=== PATIENT | female | born 1985 | race Caucasian/White ===

== ENCOUNTER 2016-06-22 09:53 | Emergency (ER) | payer MEDICAID ==
[2016-06-22] MEDS ORDERED: BENZONATATE 100 MG CAPSULE PO STA (10:41)
[2016-06-22] MEDS ORDERED: guaiFENesin/DEXTROMETHORPHAN 10 ML UDC PO STA (10:44)
[2016-06-22] MEDS ORDERED: BENZONATATE 100 MG CAPSULE PO ONE (10:51)
[2016-06-22] MEDS ORDERED: guaiFENesin/DEXTROMETHORPHAN 10 ML UDC ONE (10:51)
== END 2016-06-22 12:33 | disposition home or self-care (01) ==
DX: J40 Bronchitis, not specified as acute or chronic (principal); I10 Essential (primary) hypertension; F17.200 Nicotine dependence, unspecified, uncomplicated
CPT/HCPCS: 71020; 99282; 99283; A9270

== ENCOUNTER 2016-07-16 19:52 | Emergency (ER) | payer MEDICAID ==
[2016-07-16] MEDS ORDERED: diphenhydrAMINE 25 MG CAPSULE PO STA (21:19)
[2016-07-16] MEDS ORDERED: ONDANSETRON ODT 4 MG TABLET TL STA (21:19)
[2016-07-16] MEDS ORDERED: KETOROLAC 60 MG/2 ML VIAL IM STA (21:19)
[2016-07-16] MEDS ORDERED: diphenhydrAMINE 25 MG CAPSULE PO ONE (21:41)
[2016-07-16] MEDS ORDERED: KETOROLAC 60 MG/2 ML VIAL ONE (21:42)
[2016-07-16] MEDS ORDERED: ONDANSETRON ODT 4 MG TABLET ONE (21:42)
[2016-07-17] MEDS ORDERED: HYDROcod/ACETAM 5/325 MG TABLET ONE (00:20)
[2016-07-17] MEDS ORDERED: HYDROcod/ACETAM 5/325 MG TABLET PO STA (00:21)
== END 2016-07-17 00:23 | disposition home or self-care (01) ==
DX: G43.909 Migraine, unspecified, not intractable, without status migrainosus (principal); R07.9 Chest pain, unspecified; I10 Essential (primary) hypertension; F41.9 Anxiety disorder, unspecified; F31.9 Bipolar disorder, unspecified; F20.9 Schizophrenia, unspecified; Z88.0 Allergy status to penicillin; Z88.2 Allergy status to sulfonamides; F17.200 Nicotine dependence, unspecified, uncomplicated
CPT/HCPCS: 36415; 80053; 83690; 85025; 93005; 96372; 99283; 99284; A9270; Q0162

== ENCOUNTER 2016-07-25 20:10 | Outpatient (CLI) | payer MEDICAID | END 2016-07-25 20:11 | disposition critical access hospital (66) | DX: R53.1 Weakness (principal) | CPT/HCPCS: A0425; A0427 ==

== ENCOUNTER 2016-07-25 20:29 | Emergency (ER) | payer MEDICAID ==
[2016-07-25] MEDS ORDERED: SODIUM CHLORIDE 0.9% 1,000 ML IV ONE (20:43)
== END 2016-07-25 23:03 | disposition home or self-care (01) ==
DX: E86.0 Dehydration (principal); E11.9 Type 2 diabetes mellitus without complications; I10 Essential (primary) hypertension; F20.9 Schizophrenia, unspecified; F31.9 Bipolar disorder, unspecified; M54.5 Low back pain; G89.29 Other chronic pain; F17.200 Nicotine dependence, unspecified, uncomplicated

== ENCOUNTER 2016-08-23 23:03 | Outpatient (CLI) | payer MEDICAID | END 2016-08-23 23:04 | disposition critical access hospital (66) | DX: T42.6X1A Poisoning by other antiepileptic and sedative-hypnotic drugs, accidental (unintentional), initial encounter (principal) | CPT/HCPCS: A0425; A0429 ==

== ENCOUNTER 2016-08-23 23:20 | Emergency (ER) | payer MEDICAID ==
[2016-08-23] MEDS ORDERED: SODIUM CHLORIDE 0.9% 1,000 ML IV ONE (23:34)
[2016-08-23 23:54] LABS: BASOPHILS # (AUTO) 0.1 10^3/uL (0.0-0.1); BASOPHILS % (AUTO) 0.7 %; EOSINOPHILS # (AUTO) 0.1 10^3/uL (0.0-0.7); EOSINOPHILS % (AUTO) 1.4 %; HCT - HEMATOCRIT 36.2 % (37.0-47.0); HGB - HEMOGLOBIN 12.6 g/dL (12.0-16.0); LYMPHOCYTES # (AUTO) 2.9 10^3/uL (1.5-3.5); LYMPHOCYTES % (AUTO) 39.9 %; MEAN CORPUSCULAR HEMOGLOBIN 30.7 pg (27.0-31.0); MEAN CORPUSCULAR HGB CONC 34.9 g/dL (32.0-36.0); MEAN CORPUSCULAR VOLUME 87.8 fL (81.0-99.0); MEAN PLATELET VOLUME 9.3 fL (7.9-10.8); MONOCYTES # (AUTO) 0.4 10^3/uL (0.0-1.0); MONOCYTES % (AUTO) 4.8 %; NEUTROPHILS # (AUTO) 3.9 10^3/uL (1.5-6.6); NEUTROPHILS % (AUTO) 53.2 %; RED BLOOD COUNT 4.12 10^6/uL (4.20-5.40); UNCORRECTED WHITE BLOOD COUNT 7.4 x10^3/uL; WHITE BLOOD COUNT 7.4 x10^3/uL (4.8-10.8)
[2016-08-24 00:12] LABS: ALBUMIN/GLOBULIN RATIO 1.6 (1.0-2.2); BILIRUBIN,TOTAL 0.4 mg/dL (0.2-1.0); BUN - BLOOD UREA NITROGEN 13 mg/dL (6-20); CARBON DIOXIDE - CO2 25 mmol/L (21-32); CHLORIDE 103 mmol/L (101-111); CREATININE 0.8 mg/dL (0.4-1.0); GFR - MDRD 83 (>89); GLUCOSE 106 mg/dL (70-100); LIPASE 26 U/L (22-51); POTASSIUM 3.3 mmol/L (3.5-5.0); SALICYLATE < 6.0 mg/dL; SODIUM 136 mmol/L (135-145); TOTAL PROTEIN 6.9 g/dL (6.7-8.2)
[2016-08-24 00:13] LABS: ACETAMINOPHEN < 10 ug/mL (10-30)
--- NOTE | 2016-08-24 03:43 | ED Physician Documentation ---
PD HPI OVERDOSE - Stated complaint Stated Complaint: OD - Chief complaint Chief Complaint: MHE - History obtained from History obtained from: Patient, Friend, EMS - History of Present Illness Timing - onset: How many hours ago (2) Subtance(s) ingested: Multiple, Other (ambien) Contributing factors: Accidental. No: Depresssed, Suicidal Similar symptoms before: Has not had sx before Recently seen: Not recently seen - Additional information Additional information: Patient is a 31 year old female with multiple co-morbidities who is presenting to the emergency department for an accidental overdose. Patient states that she took 6 ambien tonight with her other medications (gabapentin, psych meds). Patient states that she just got confused with her medication. Patient denies any suicidal or homicidal ideation. 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 HEENT: Tonsil/Adenoidectomy - Present Medications Home Medications: Ambulatory Orders Medication Instructions Recorded Confirmed Ziprasidone HCl [Geodon] 40 mg PO BID 04/17/15 01/12/16 Bupropion HCl [Wellbutrin Sr] 200 mg PO DAILY 07/16/15 01/12/16 Polyethylene Glycol 3350 [Miralax] 17 gm PO DAILY PRN #1 bottle 12/17/15 Mag Carb/Al Hydrox/Alginic AC 355 ml ORAL .FREQ 02/27/16 [Gaviscon Extra Strength Liquid] Omeprazole 02/27/16 - Allergies Allergies/Adverse Reactions: Allergies Allergy/AdvReac Type Severity Reaction Status Date / Time Penicillins AdvReac Unknown Rash Verified 07/16/16 20:05 Sulfa (Sulfonamide AdvReac Unknown Rash Verified 07/16/16 20:05 Antibiotics) steroids Allergy Hallucinati Uncoded 07/16/16 20:05 ons - Social History Does the pt smoke?: Yes Smoking Status: Current every day smoker Does the pt drink ETOH?: No Does the pt have substance abuse?: Yes - Immunizations Immunizations are current?: Yes - POLST Patient has POLST: No PD ED PE NORMAL - Vitals Vital signs reviewed: Yes - General General: Well developed/nourished - HEENT HEENT: Atraumatic, PERRL, Moist mucous membranes - Neck Neck: Supple, no meningeal sign PD ED PE EXPANDED - General General: Other (decreased responsiveness but arousable) - Cardiac Cardiac: Tachy - Abdomen Abdomen: Other (obese) - Neuro Neuro: Other (sedated but arousable) - Psych Psych: No: Depressed, Suicidal, Tearful, Withdrawn, Combative, Auditory hallucinations, Visual hallucinations Results - Vitals Vitals: Vital Signs - 24 hr 08/23/16 08/24/16 08/24/16 23:22 00:01 03:09 Temperature 36.3 C L Heart Rate 130 H 102 H 83 Respiratory 14 16 17 Rate Blood Pressure 106/72 118/78 106/91 H O2 Saturation 95 95 08/24/16 03:41 Temperature Heart Rate 83 Respiratory 19 Rate Blood Pressure 109/69 O2 Saturation 94 Oxygen O2 Source Room air - EKG (time done) 2332 Rate: Rate (enter#) (120) Rhythm: Sinus tachycardia [place]: Normal Intervals: Normal VT, QRS normal. No: Prolonged QT QRS: Normal Compare to prior EKG: Changed from prior EKG - Labs Labs: Laboratory Tests 08/23/16 08/23/16 08/23/16 23:48 23:48 23:48 WBC 7.4 RBC 4.12 L Hgb 12.6 Hct 36.2 L MCV 87.8 MCH 30.7 MCHC 34.9 RDW 13.0 Plt Count 191 MPV 9.3 Neut # 3.9 Lymph # 2.9 [place] # 0.4 Eos # 0.1 Baso # 0.1 Absolute Nucleated RBC 0.00 Nucleated RBCs 0.0 Sodium 136 Potassium 3.3 L Chloride 103 Carbon Dioxide 25 Anion Gap 8.0 BUN 13 Creatinine 0.8 Estimated GFR (MDRD) 83 L Glucose 106 H Calcium 9.0 Total Bilirubin 0.4 AST 23 ALT 24 Alkaline Phosphatase 57 Total Protein 6.9 Albumin 4.2 Globulin 2.7 Albumin/Globulin Ratio 1.6 Lipase 26 TSH 1.81 Salicylates < 6.0 Acetaminophen < 10 L Ethyl Alcohol < 5.0 PD MEDICAL DECISION MAKING - ED course Complexity details: reviewed old records, reviewed results, re-evaluated patient , considered differential, d/w patient, d/w family ED course: Patient was seen and examiend at bedside. Patient continued to deny suicidal ideation. IV access was gained and labs were drawn. Patient was treated with a fluid bolus. ekg showed sinus tachycardia. Patient was observed overnight for over 5 hours. In the morning patient was arousable without difficulty. Patient was awake, and alert. she could attend to conversation and ambulate without difficulty. Patient continued to deny any suicidal or homicidal ideations. Patient required no further work up and was stable for discharge with outpatient follow up. Departure - Departure Disposition: 01 Home, Self Care Clinical Impression: Drug overdose Condition: Good Instructions: ED Overdose Accidental Follow-Up: primary,care provider [Other] - Within 3 Days Comments: Your symptoms today were caused by the combination of numerous medications. overdosing/combining these medications can have serious side effects including . You need to be very careful in taking these mediations. You should return to the emergency department if you are having any thoughts of hurting yourself or hurting anyone else. You may return for any new, worsening or uncontrollable symptoms.
[2016-08-24 06:25] VITALS: BP 110/70
== END 2016-08-24 06:31 | disposition home or self-care (01) ==
LOC: EDUNIT# → ED 23:20
DX: T42.6X1A Poisoning by other antiepileptic and sedative-hypnotic drugs, accidental (unintentional), initial encounter (principal); I10 Essential (primary) hypertension; F17.200 Nicotine dependence, unspecified, uncomplicated
CPT/HCPCS: 36415; 80053; 80307; 80320; 80329; 83690; 84443; 85025; 93005; 93010; 96360; 96361; 99284

== ENCOUNTER 2016-08-25 18:06 | Outpatient (CLI) | payer MEDICAID | END 2016-08-25 18:07 | disposition critical access hospital (66) | DX: T42.4X2A Poisoning by benzodiazepines, intentional self-harm, initial encounter (principal) | CPT/HCPCS: A0425; A0427 ==

== ENCOUNTER 2016-08-25 18:27 | Emergency (ER) | payer MEDICAID ==
[2016-08-25] MEDS ORDERED: SODIUM CHLORIDE 0.9% 1,000 ML IV ONE (18:31)
--- NOTE | 2016-08-25 18:35 | ED Physician Documentation ---
PD HPI OVERDOSE - Stated complaint Stated Complaint: OD - History obtained from History obtained from: Patient, EMS - History of Present Illness Timing - onset: Today (At 4 PM, in a suicide attempt took 7x0.5mg clonazepam, 4x 10mg ambien, apprx 10 x 50mg hydroxyzine, about 5 x 100mg trazodone. Was seen here a few nights ago after an OD, told us it was accidental, now admits it was also intentional.) Review of Systems Ten Systems: 10 systems reviewed and negative Constitutional: reports: Reviewed and negative Ears: reports: Reviewed and negative Nose: reports: Reviewed and negative Throat: reports: Reviewed and negative PD PAST MEDICAL HISTORY - Past Medical History Cardiovascular: Hypertension Respiratory: None Neuro: Headache/migraine Endocrine/Autoimmune: None GI: Chronic constipation : None HEENT: None Psych: Depression, Anxiety, Bipolar disorder, Schizophrenia, Other Musculoskeletal: Chronic back pain Derm: None - Past Surgical History 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 HEENT: Tonsil/Adenoidectomy - Present Medications Home Medications: Ambulatory Orders Medication Instructions Recorded Confirmed Ziprasidone HCl [Geodon] 40 mg PO BID 04/17/15 08/25/16 Bupropion HCl [Wellbutrin Sr] 200 mg PO DAILY 07/16/15 01/12/16 Polyethylene Glycol 3350 [Miralax] 17 gm PO DAILY PRN #1 bottle 12/17/15 Mag Carb/Al Hydrox/Alginic AC 355 ml ORAL .FREQ 02/27/16 [Gaviscon Extra Strength Liquid] Omeprazole 02/27/16 FLUoxetine [PROzac] 20 08/25/16 Gabapentin 600 08/25/16 Guanfacine HCl [Guanfacine HCl ER] 08/25/16 Sumatriptan Succinate 08/25/16 hydrOXYzine PAMOATE [Vistaril] 08/25/16 - Allergies Allergies/Adverse Reactions: Allergies Allergy/AdvReac Type Severity Reaction Status Date / Time Penicillins AdvReac Unknown Rash Verified 07/16/16 20:05 Sulfa (Sulfonamide AdvReac Unknown Rash Verified 07/16/16 20:05 Antibiotics) steroids Allergy Hallucinati Uncoded 07/16/16 20:05 ons - Social History Does the pt smoke?: Yes Smoking Status: Current every day smoker Does the pt drink ETOH?: No Does the pt have substance abuse?: Yes - Family History Family history: reports: Non contributory - Immunizations Immunizations are current?: Yes - POLST Patient has POLST: No PD ED PE NORMAL - Vitals Vital signs reviewed: Yes (tachycardic) - General General: Alert and oriented X 3, Other (sleepy but easily arousable/oriented.) - HEENT HEENT: PERRL, EOMI - Neck Neck: Supple, no meningeal sign, No bony TTP - Cardiac Cardiac: RRR, No murmur - Respiratory Respiratory: No respiratory distress, Clear bilaterally - Abdomen Abdomen: Normal bowel sounds, Soft, Non tender - Back Back: No CVA TTP, No spinal TTP - Derm Derm: Normal color, Warm and dry - Extremities Extremities: Normal ROM s pain, No edema - Neuro Neuro: Alert and oriented X 3, Normal speech - Psych Psych: Normal mood, Normal affect Results - Vitals Vitals: Vital Signs - 24 hr 08/25/16 08/25/16 08/25/16 18:30 19:25 20:37 Temperature 37 C Heart Rate 137 H 78 78 Respiratory 14 12 17 Rate Blood Pressure 136/71 H 118/86 H 102/51 L O2 Saturation 97 98 98 08/25/16 08/25/16 08/25/16 20:53 21:34 22:34 Temperature Heart Rate 81 81 77 Respiratory 17 15 17 Rate Blood Pressure 108/60 94/67 94/60 O2 Saturation 97 97 96 08/25/16 08/25/16 08/26/16 22:50 23:36 00:27 Temperature Heart Rate 75 87 86 Respiratory 18 15 16 Rate Blood Pressure 102/70 95/63 98/69 O2 Saturation 98 95 95 08/26/16 08/26/16 08/26/16 01:33 02:39 02:44 Temperature 36.2 C L Heart Rate 86 89 88 Respiratory 15 15 17 Rate Blood Pressure 103/67 115/66 99/65 O2 Saturation 97 96 95 08/26/16 08/26/16 08/26/16 03:41 04:00 05:00 Temperature Heart Rate 77 81 85 Respiratory 18 16 18 Rate Blood Pressure 104/70 108/72 116/75 O2 Saturation 96 98 96 08/26/16 08/26/16 08/26/16 06:00 06:54 09:40 Temperature Heart Rate 84 84 70 Respiratory 14 15 16 Rate Blood Pressure 128/78 109/75 115/66 O2 Saturation 100 98 98 Oxygen O2 Source Room air - EKG (time done) 1833 Rate: Rate (enter#) (122) Rhythm: Sinus tachycardia [place]: Normal Intervals: Normal [place]. No: Prolonged QT, Wide QRS QRS: Normal Ischemia: Non specific changes Computer interpretation: Agree with computer - Labs Labs: Laboratory Tests 08/25/16 08/25/16 08/25/16 18:50 18:50 19:20 WBC 6.4 RBC 4.46 Hgb 13.4 Hct 39.3 MCV 88.1 MCH 30.1 MCHC 34.1 RDW 13.0 Plt Count 202 MPV 9.4 Neut # 3.6 Lymph # 2.3 [place] # 0.3 Eos # 0.1 Baso # 0.0 Absolute Nucleated RBC 0.00 Nucleated RBCs 0.0 Sodium 139 Potassium 3.5 Chloride 106 Carbon Dioxide 22 Anion Gap 11.0 BUN 14 Creatinine 0.7 Estimated GFR (MDRD) 96 Glucose 119 H Calcium 9.1 Magnesium 1.8 Total Bilirubin 0.3 AST 25 ALT 23 Alkaline Phosphatase 51 Total Creatine Kinase 49 Total Protein 7.1 Albumin 4.2 Globulin 2.9 Albumin/Globulin Ratio 1.4 Lipase 22 Urine Color Urine Clarity Urine pH Ur Specific [place] Urine Protein Urine Glucose (UA) Urine Ketones Urine Occult Blood Urine Nitrite Urine Bilirubin Urine Urobilinogen Ur Leukocyte Esterase Urine RBC Urine WBC Ur Squamous Epith Cells Urine Bacteria Ur Microscopic Review Urine Culture Comments Urine HCG, Qual Salicylates < 6.0 Urine Opiates Screen NEGATIVE Ur Oxycodone Screen NEGATIVE Urine Methadone Screen NEGATIVE Ur Propoxyphene Screen NEGATIVE Acetaminophen < 10 L Ur Barbiturates Screen NEGATIVE Ur Tricyclics Screen NEGATIVE Ur Phencyclidine Scrn NEGATIVE Ur Amphetamine Screen NEGATIVE U Methamphetamines Scrn NEGATIVE U Benzodiazepines Scrn POSITIVE H Urine Cocaine Screen NEGATIVE U Cannabinoids Screen POSITIVE H Ethyl Alcohol < 5.0 08/25/16 19:20 WBC RBC Hgb Hct MCV MCH MCHC RDW Plt Count MPV Neut # Lymph # [place] # Eos # Baso # Absolute Nucleated RBC Nucleated RBCs Sodium Potassium Chloride Carbon Dioxide Anion Gap BUN Creatinine Estimated GFR (MDRD) Glucose Calcium Magnesium Total Bilirubin AST ALT Alkaline Phosphatase Total Creatine Kinase Total Protein Albumin Globulin Albumin/Globulin Ratio Lipase Urine Color YELLOW Urine Clarity HAZY Urine pH 6.0 Ur Specific [place] 1.010 Urine Protein NEGATIVE Urine Glucose (UA) NEGATIVE Urine Ketones NEGATIVE Urine Occult Blood LARGE H Urine Nitrite NEGATIVE Urine Bilirubin NEGATIVE Urine Urobilinogen 0.2 (NORMAL) Ur Leukocyte Esterase NEGATIVE Urine RBC TNTC H Urine WBC 0-3 Ur Squamous Epith Cells MOD Squamous H Urine Bacteria None Seen Ur Microscopic Review INDICATED Urine Culture Comments NOT INDICATED Urine HCG, Qual NEGATIVE Salicylates Urine Opiates Screen Ur Oxycodone Screen Urine Methadone Screen Ur Propoxyphene Screen Acetaminophen Ur Barbiturates Screen Ur Tricyclics Screen Ur Phencyclidine Scrn Ur Amphetamine Screen U Methamphetamines Scrn U Benzodiazepines Scrn Urine Cocaine Screen U Cannabinoids Screen Ethyl Alcohol PD MEDICAL DECISION MAKING - ED course ED course: She presents after an overdose, observed for 6 hours without clinical decompensation. Third for psychiatric treatment and [facility], disposition pending on shift change. Departure - Departure Disposition: 65 Psych Hosp/Unit DC/Xfer Clinical Impression: Depression Qualifiers: Depression Type: unspecified Qualified Code(s): F32.9 - Major depressive disorder, single episode, unspecified Medication overdose Qualifiers: Encounter type: initial encounter Injury intent: intentional self-harm Qualified Code(s): T50.902A - Poisoning by unspecified drugs, medicaments and biological substances, intentional self-harm, initial encounter Condition: Good Discharge Date/Time: 08/26/16 09:45
[2016-08-25 18:58] LABS: BASOPHILS % (AUTO) 0.5 %; EOSINOPHILS # (AUTO) 0.1 10^3/uL (0.0-0.7); EOSINOPHILS % (AUTO) 1.2 %; HCT - HEMATOCRIT 39.3 % (37.0-47.0); HGB - HEMOGLOBIN 13.4 g/dL (12.0-16.0); LYMPHOCYTES # (AUTO) 2.3 10^3/uL (1.5-3.5); LYMPHOCYTES % (AUTO) 36.7 %; MEAN CORPUSCULAR HEMOGLOBIN 30.1 pg (27.0-31.0); MEAN CORPUSCULAR HGB CONC 34.1 g/dL (32.0-36.0); MEAN CORPUSCULAR VOLUME 88.1 fL (81.0-99.0); MEAN PLATELET VOLUME 9.4 fL (7.9-10.8); MONOCYTES # (AUTO) 0.3 10^3/uL (0.0-1.0); MONOCYTES % (AUTO) 4.3 %; NEUTROPHILS # (AUTO) 3.6 10^3/uL (1.5-6.6); NEUTROPHILS % (AUTO) 57.3 %; RED BLOOD COUNT 4.46 10^6/uL (4.20-5.40); UNCORRECTED WHITE BLOOD COUNT 6.4 x10^3/uL; WHITE BLOOD COUNT 6.4 x10^3/uL (4.8-10.8)
[2016-08-25 19:13] LABS: ALBUMIN/GLOBULIN RATIO 1.4 (1.0-2.2); BILIRUBIN,TOTAL 0.3 mg/dL (0.2-1.0); BUN - BLOOD UREA NITROGEN 14 mg/dL (6-20); CALCIUM 9.1 mg/dL (8.5-10.3); CARBON DIOXIDE - CO2 22 mmol/L (21-32); CHLORIDE 106 mmol/L (101-111); CREATININE 0.7 mg/dL (0.4-1.0); GFR - MDRD 96 (>89); GLUCOSE 119 mg/dL (70-100); LIPASE 22 U/L (22-51); MAGNESIUM 1.8 mg/dL (1.7-2.8); POTASSIUM 3.5 mmol/L (3.5-5.0); SALICYLATE < 6.0 mg/dL; SODIUM 139 mmol/L (135-145); TOTAL PROTEIN 7.1 g/dL (6.7-8.2)
[2016-08-25 19:14] LABS: ACETAMINOPHEN < 10 ug/mL (10-30)
[2016-08-25 19:36] LABS: BILIRUBIN,URINE NEGATIVE (NEGATIVE)
[2016-08-25 19:37] LABS: UA w/ MICROSCOPIC CHARGE YES
[2016-08-25 20:01] LABS: HCG UR QUAL NEGATIVE
[2016-08-25 20:11] LABS: UR CULTURE IF IND NOT INDICATED; WBC,URINE 0-3 /HPF (0-5)
[2016-08-25] MEDS ORDERED: KETOROLAC 60 MG/2 ML VIAL IVP STA (20:40)
[2016-08-25] MEDS ORDERED: HALOPERIDOL 5 MG/ML VIAL IVP ONE (20:40)
[2016-08-25] MEDS ORDERED: KETOROLAC 30 MG/ML VIAL ONE (20:44)
[2016-08-25] MEDS ORDERED: HALOPERIDOL 5 MG/ML VIAL ONE (20:44)
[2016-08-26 09:50] VITALS: BP 115/66
== END 2016-08-26 09:45 ==
LOC: EDUNIT# → ED 18:27
DX: F32.9 Major depressive disorder, single episode, unspecified (principal); T42.4X2A Poisoning by benzodiazepines, intentional self-harm, initial encounter; T42.6X2A Poisoning by other antiepileptic and sedative-hypnotic drugs, intentional self-harm, initial encounter; T43.592A Poisoning by other antipsychotics and neuroleptics, intentional self-harm, initial encounter; T43.212A Poisoning by selective serotonin and norepinephrine reuptake inhibitors, intentional self-harm, initial encounter; R00.0 Tachycardia, unspecified; F20.9 Schizophrenia, unspecified; I10 Essential (primary) hypertension; F17.200 Nicotine dependence, unspecified, uncomplicated
CPT/HCPCS: 36415; 80053; 80306; 80307; 80320; 80329; 81001; 81003; 81025; 82550; 83690; 83735; 85025; 87086; 93005; 93010; 96361; 96374; 96375; 99285

== ENCOUNTER 2016-09-16 18:07 | Outpatient (CLI) | payer MEDICAID | END 2016-09-16 18:08 | disposition critical access hospital (66) | DX: M54.2 Cervicalgia (principal); R68.84 Jaw pain | CPT/HCPCS: A0425; A0429 ==

== ENCOUNTER 2016-09-16 18:28 | Emergency (ER) | payer MEDICAID ==
[2016-09-16 18:40] VITALS: BP 137/93
[2016-09-16] MEDS ORDERED: CEPHALEXIN 250 MG CAPSULE PO STA (19:05)
--- NOTE | 2016-09-16 19:08 | ED Physician Documentation ---
PD HPI HEENT - Stated complaint Stated Complaint: JAWPAIN - Chief complaint Chief Complaint: Heent - History obtained from History obtained from: Patient - History of Present Illness Timing - onset: How many days ago (2) Timing - details: Still present Location: Tooth Recently seen: Other (dentist) - Additional information Additional information: The patient is a 31-year-old female who presents with dental pain of 2 days' duration, involving right lower molar. She reports associated mild headache. She denies fever or difficulty swallowing. She was seen by a dentist earlier today and had extraction of the involved tooth. She presents now because of continued pain. Review of Systems Constitutional: denies: Fever Eyes: denies: Irritation Ears: denies: Ear pain Nose: denies: Congestion Throat: reports: Dental pain / toothache. 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/Adenoidectomy - Present Medications Home Medications: Ambulatory Orders Medication Instructions Recorded Confirmed Polyethylene Glycol 3350 [Miralax] 17 gm PO DAILY PRN #1 bottle 12/17/15 Gabapentin 600 mg TID 08/25/16 Sumatriptan Succinate PRN 08/25/16 hydrOXYzine PAMOATE [Vistaril] 50 mg PRN 08/25/16 Cephalexin 500 mg PO TID #20 tablet 09/16/16 HYDROcod/ACETAM 5/325 [[place] 5/325] 1 - 2 ea PO Q6H PRN #15 tablet 09/16/16 - Allergies Allergies/Adverse Reactions: Allergies Allergy/AdvReac Type Severity Reaction Status Date / Time Penicillins AdvReac Unknown Rash Verified 09/16/16 18:33 Sulfa (Sulfonamide AdvReac Unknown Rash Verified 09/16/16 18:33 Antibiotics) steroids Allergy Hallucinati Uncoded 09/16/16 18:33 ons - Social History Does the pt smoke?: Yes Smoking Status: Current every day smoker Does the pt drink ETOH?: No Does the pt have substance abuse?: Yes - Immunizations Immunizations are current?: Yes - POLST Patient has POLST: No PD ED PE NORMAL - Vitals Vital signs reviewed: Yes (normal) - General General: Alert and oriented X 3, Well developed/nourished - HEENT HEENT: Atraumatic, EOMI, Ears normal, Pharynx benign, Other (Most of her molars have been extracted. There is a new extraction site of the right lower third molar. There is associated tenderness to palpation of the first premolar. There is no appreciable facial swelling or temporal mandibular tenderness.) - Neck Neck: Supple, no meningeal sign, No adenopathy - Cardiac Cardiac: RRR, No murmur - Respiratory Respiratory: No respiratory distress, Clear bilaterally - Derm Derm: No rash - Neuro Neuro: Alert and oriented X 3, No motor deficit, Normal speech Results - Vitals Vitals: Oxygen O2 Source Room air PD MEDICAL DECISION MAKING - ED course Complexity details: reviewed old records, considered differential, d/w patient ED course: The patient's presentation is consistent with post extraction dental pain. It is likely she had a small dental abscess at the affected tooth. There is no evidence of sublingual abscess. Treatment in the emergency department included administration of cephalexin 500 mg orally. She is being discharged with prescription for cephalexin and for Vicodin, 15 tablets. I discussed with her the expected course of illness, antibiotic treatment and outpatient follow-up, as well as potentially worrisome signs or symptoms that should prompt reevaluation in the emergency department. Departure - Departure Disposition: 01 Home, Self Care Clinical Impression: Pain, dental Condition: Stable Instructions: ED Abscess Dental Follow-Up: Nigel Cruz MD [Physician No Access] - Prescriptions: Cephalexin 500 mg PO TID #20 tablet HYDROcod/ACETAM 5/325 [[place] 5/325] 1 - 2 ea PO Q6H PRN #15 tablet PRN Reason: Pain Comments: Take cephalexin as prescribed. You can use Vicodin as prescribed if needed for pain. Follow up with your dentist as planned. Return to the emergency department if you develop increasing pain or facial swelling, or otherwise worsening symptoms. Discharge Date/Time: 09/16/16 19:26
[2016-09-16] MEDS ORDERED: CEPHALEXIN 250 MG CAPSULE PO ONE (19:11)
== END 2016-09-16 19:26 | disposition home or self-care (01) ==
LOC: EDUNIT# → ED 18:28
DX: K08.89 Other specified disorders of teeth and supporting structures (principal); I10 Essential (primary) hypertension; F17.200 Nicotine dependence, unspecified, uncomplicated
CPT/HCPCS: 99283; A9270

== ENCOUNTER 2016-09-19 17:58 | Outpatient (CLI) | payer MEDICAID | END 2016-09-19 17:59 | disposition critical access hospital (66) | LOC: EMS 17:58 | PROVIDERS: ATTEND Surgery | DX: R53.1 Weakness (principal) | CPT/HCPCS: A0425; A0429 ==

== ENCOUNTER 2016-09-19 18:19 | Emergency (ER) | payer MEDICAID ==
[2016-09-19 20:31] LABS: BASOPHILS # (AUTO) 0.1 10^3/uL (0.0-0.1); BASOPHILS % (AUTO) 0.9 %; EOSINOPHILS % (AUTO) 0.5 %; HCT - HEMATOCRIT 41.7 % (37.0-47.0); LYMPHOCYTES # (AUTO) 3.4 10^3/uL (1.5-3.5); LYMPHOCYTES % (AUTO) 37.8 %; MEAN CORPUSCULAR HEMOGLOBIN 29.7 pg (27.0-31.0); MEAN CORPUSCULAR HGB CONC 33.6 g/dL (32.0-36.0); MEAN CORPUSCULAR VOLUME 88.2 fL (81.0-99.0); MONOCYTES # (AUTO) 0.5 10^3/uL (0.0-1.0); MONOCYTES % (AUTO) 5.7 %; NEUTROPHILS # (AUTO) 4.9 10^3/uL (1.5-6.6); NEUTROPHILS % (AUTO) 55.1 %; RED BLOOD COUNT 4.72 10^6/uL (4.20-5.40); RED CELL DISTRIBUTION WIDTH 12.5 % (12.0-15.0); UNCORRECTED WHITE BLOOD COUNT 8.9 x10^3/uL; WHITE BLOOD COUNT 8.9 x10^3/uL (4.8-10.8)
[2016-09-19 20:35] LABS: BILIRUBIN,URINE NEGATIVE (NEGATIVE); PH,URINE 8.5 PH (5.0-7.5)
[2016-09-19 20:40] LABS: HCG UR QUAL NEGATIVE; UA w/ MICROSCOPIC CHARGE YES
[2016-09-19 20:43] LABS: ALBUMIN/GLOBULIN RATIO 1.7 (1.0-2.2); BILIRUBIN,TOTAL < 0.2 mg/dL (0.2-1.0); BUN - BLOOD UREA NITROGEN 13 mg/dL (6-20); CALCIUM 8.9 mg/dL (8.5-10.3); CARBON DIOXIDE - CO2 24 mmol/L (21-32); CHLORIDE 105 mmol/L (101-111); CREATININE 0.7 mg/dL (0.4-1.0); GFR - MDRD 96 (>89); GLUCOSE 99 mg/dL (70-100); LIPASE 25 U/L (22-51); SODIUM 139 mmol/L (135-145)
--- NOTE | 2016-09-19 20:57 | ED Physician Documentation ---
History of Present Illness - Stated complaint Stated Complaint: WEAKNESS - Chief complaint Chief Complaint: General - History of Present Illness Timing: How many weeks ago (1) - Additonal information Additional information: Patient is a 31 year old female with a history of depression and chronic pain who is presenting to the emergency department for generalized weakness and right shoulder pain. Patient states that it has been going on for over a week. She thinks that it might have been after she was on antibiotics for an infected tooth. Patient states that she is just continually sleeping. Review of Systems Constitutional: denies: Fever, Chills Eyes: denies: Loss of vision, Photophobia Ears: denies: Ear pain, Drainage/discharge, Tinnitus/ringing Nose: denies: Rhinorrhea / runny nose, Congestion Throat: denies: Dental pain / toothache, Sore throat Cardiac: denies: Chest pain / pressure, Palpitations Respiratory: denies: Dyspnea, Cough, Wheezing GI: denies: Abdominal Pain, Nausea, Vomiting : denies: Dysuria, Frequency, Hesitancy Skin: denies: Rash, Lesions, Abrasion (s) Musculoskeletal: reports: Neck pain, Extremity pain Neurologic: reports: Generalized weakness. 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 HEENT: Tonsil/Adenoidectomy - Present Medications Home Medications: Ambulatory Orders Medication Instructions Recorded Confirmed Polyethylene Glycol 3350 [Miralax] 17 gm PO DAILY PRN #1 bottle 12/17/15 Gabapentin 600 mg TID 08/25/16 09/19/16 Sumatriptan Succinate PRN 08/25/16 hydrOXYzine PAMOATE [Vistaril] 50 mg TID 08/25/16 09/19/16 Cephalexin 500 mg PO TID #20 tablet 09/16/16 09/19/16 HYDROcod/ACETAM 5/325 [[place] 5/325] 1 - 2 ea PO Q6H PRN #15 tablet 09/16/16 - Allergies Allergies/Adverse Reactions: Allergies Allergy/AdvReac Type Severity Reaction Status Date / Time Penicillins AdvReac Unknown Rash Verified 09/16/16 18:33 Sulfa (Sulfonamide AdvReac Unknown Rash Verified 09/16/16 18:33 Antibiotics) steroids Allergy Hallucinati Uncoded 09/16/16 18:33 ons - Social History Does the pt smoke?: Yes Smoking Status: Current every day smoker Does the pt drink ETOH?: No Does the pt have substance abuse?: Yes Substance Use and Type: Marijuana - Immunizations Immunizations are current?: Yes - POLST Patient has POLST: No PD ED PE NORMAL - Vitals Vital signs reviewed: Yes - General General: Alert and oriented X 3, No acute distress - HEENT HEENT: Atraumatic, PERRL, Moist mucous membranes, Pharynx benign - Neck Neck: Supple, no meningeal sign, No JVD - Cardiac Cardiac: RRR, No murmur - Respiratory Respiratory: No respiratory distress, Clear bilaterally - Abdomen Abdomen: Soft, Non tender, Non distended - Derm Derm: Normal color, Warm and dry, No rash - Extremities Extremities: No deformity - Neuro Neuro: Alert and oriented X 3, tc operator 2-12 intact, No motor deficit, No sensory deficit, Normal speech - Psych Psych: Normal affect PD ED PE EXPANDED - General General: Disheveled, poorly kept - Neck Neck: Supple w/out meningeal sx, Soft tissue TTP (hypertonicity of right paraspinal muscles) Results - Vitals Vitals: Vital Signs - 24 hr 09/19/16 09/19/16 09/19/16 18:22 19:43 21:03 Temperature 36.4 C L 36.1 C L Heart Rate 118 H 79 91 Respiratory 18 18 20 Rate Blood Pressure 137/65 H 118/79 109/69 O2 Saturation 95 97 99 Oxygen O2 Source Room air - Labs Labs: Laboratory Tests 09/19/16 09/19/16 09/19/16 20:15 20:15 20:25 WBC 8.9 RBC 4.72 Hgb 14.0 Hct 41.7 MCV 88.2 MCH 29.7 MCHC 33.6 RDW 12.5 Plt Count 196 MPV 9.0 Neut # 4.9 Lymph # 3.4 [place] # 0.5 Eos # 0.0 Baso # 0.1 Absolute Nucleated RBC 0.00 Nucleated RBCs 0.0 Sodium Potassium Chloride Carbon Dioxide Anion Gap BUN Creatinine Estimated GFR (MDRD) Glucose Calcium Total Bilirubin AST ALT Alkaline Phosphatase Total Protein Albumin Globulin Albumin/Globulin Ratio Lipase Urine Color YELLOW Urine Clarity HAZY Urine pH 8.5 H Ur Specific [place] 1.020 Urine Protein NEGATIVE Urine Glucose (UA) NEGATIVE Urine Ketones TRACE Urine Occult Blood NEGATIVE Urine Nitrite NEGATIVE Urine Bilirubin NEGATIVE Urine Urobilinogen 1 (NORMAL) Ur Leukocyte Esterase NEGATIVE Urine RBC 0-5 Urine WBC 0-3 Ur Squamous Epith Cells MOD Squamous H Urine Bacteria Few Ur Microscopic Review INDICATED Urine Culture Comments NOT INDICATED Urine HCG, Qual NEGATIVE Urine Opiates Screen POSITIVE H Ur Oxycodone Screen NEGATIVE Urine Methadone Screen NEGATIVE Ur Propoxyphene Screen NEGATIVE Ur Barbiturates Screen NEGATIVE Ur Tricyclics Screen NEGATIVE Ur Phencyclidine Scrn NEGATIVE Ur Amphetamine Screen NEGATIVE U Methamphetamines Scrn NEGATIVE U Benzodiazepines Scrn POSITIVE H Urine Cocaine Screen NEGATIVE U Cannabinoids Screen POSITIVE H 09/19/16 20:25 WBC RBC Hgb Hct MCV MCH MCHC RDW Plt Count MPV Neut # Lymph # [place] # Eos # Baso # Absolute Nucleated RBC Nucleated RBCs Sodium 139 Potassium 4.0 Chloride 105 Carbon Dioxide 24 Anion Gap 10.0 BUN 13 Creatinine 0.7 Estimated GFR (MDRD) 96 Glucose 99 Calcium 8.9 Total Bilirubin < 0.2 L AST 15 ALT 16 Alkaline Phosphatase 49 Total Protein 7.0 Albumin 4.4 Globulin 2.6 Albumin/Globulin Ratio 1.7 Lipase 25 Urine Color Urine Clarity Urine pH Ur Specific [place] Urine Protein Urine Glucose (UA) Urine Ketones Urine Occult Blood Urine Nitrite Urine Bilirubin Urine Urobilinogen Ur Leukocyte Esterase Urine RBC Urine WBC Ur Squamous Epith Cells Urine Bacteria Ur Microscopic Review Urine Culture Comments Urine HCG, Qual Urine Opiates Screen Ur Oxycodone Screen Urine Methadone Screen Ur Propoxyphene Screen Ur Barbiturates Screen Ur Tricyclics Screen Ur Phencyclidine Scrn Ur Amphetamine Screen U Methamphetamines Scrn U Benzodiazepines Scrn Urine Cocaine Screen U Cannabinoids Screen PD MEDICAL DECISION MAKING - ED course Complexity details: reviewed old records, reviewed results, re-evaluated patient , considered differential, d/w patient ED course: Patient was seen and examined at bedside. Patient's original tachycardia in triage resolved on its own. patient was afebrile. labs were drawn and urine was collected. Patient's blood work was within normal limits and urine was only significant for polysubstances. Upon discharge patient's vital signs were within normal limits. Patient was stable for discharge with outpatient follow up. Departure - Departure Disposition: 01 Home, Self Care Clinical Impression: Generalized muscle ache Condition: Good Instructions: ANTI-INFLAMMATORY, General Follow-Up: Nigel Cruz MD [Primary Care Provider] - As Needed Comments: Your diagnostics today were within normal limits. there were no major abnormalities on you blood work or urine. Your symptoms impart are likely due to all of the medications that your are taking. You are on over four meds that can cause sedation so you need to be careful how much and how often you are taking them. You should follow up with your pmd if your symptoms persist for more than the next week. You may return to the emergency department at any time for new worsening or uncontrollable symptoms. Discharge Date/Time: 09/19/16 21:07
[2016-09-19 21:04] VITALS: BP 109/69
[2016-09-19 21:05] LABS: UR CULTURE IF IND NOT INDICATED; WBC,URINE 0-3 /HPF (0-5)
== END 2016-09-19 21:07 | disposition home or self-care (01) ==
LOC: EDUNIT# → ED 18:19
DX: M79.1 Myalgia (principal); R00.0 Tachycardia, unspecified; R53.1 Weakness; I10 Essential (primary) hypertension; F17.200 Nicotine dependence, unspecified, uncomplicated
CPT/HCPCS: 36415; 80053; 80306; 81001; 81003; 81025; 83690; 85025; 87086; 99282; 99283

== ENCOUNTER 2016-09-25 08:00 | Outpatient (CLI) | payer MEDICAID ==
[2016-09-26 21:58] LABS: TEST RESULT REPORT (())
== END 2016-09-25 08:01 | disposition home or self-care (01) ==
LOC: LAB.R 08:00
PROVIDERS: ATTEND Nurse Practitioner Obstetrics & Gynecology
DX: N76.0 Acute vaginitis (principal)
CPT/HCPCS: 81599; 87480; 87510; 87660

== ENCOUNTER 2016-09-28 09:56 | Outpatient (CLI) | payer MEDICAID | END 2016-09-28 09:57 | disposition home or self-care (01) | LOC: DI.N 09:56 | PROVIDERS: ATTEND Nurse Practitioner Obstetrics & Gynecology | DX: Z53.9 Procedure and treatment not carried out, unspecified reason (principal) ==

== ENCOUNTER 2016-10-15 14:17 | Emergency (ER) | payer MEDICAID ==
[2016-10-15 14:38] LABS: BASOPHILS # (AUTO) 0.1 10^3/uL (0.0-0.1); BASOPHILS % (AUTO) 0.8 %; EOSINOPHILS % (AUTO) 0.3 %; HCT - HEMATOCRIT 41.8 % (37.0-47.0); HGB - HEMOGLOBIN 14.2 g/dL (12.0-16.0); LYMPHOCYTES % (AUTO) 20.3 %; MEAN CORPUSCULAR HEMOGLOBIN 29.6 pg (27.0-31.0); MEAN CORPUSCULAR HGB CONC 34.1 g/dL (32.0-36.0); MEAN CORPUSCULAR VOLUME 86.9 fL (81.0-99.0); MEAN PLATELET VOLUME 8.8 fL (7.9-10.8); MONOCYTES # (AUTO) 0.4 10^3/uL (0.0-1.0); MONOCYTES % (AUTO) 4.3 %; NEUTROPHILS # (AUTO) 7.3 10^3/uL (1.5-6.6); NEUTROPHILS % (AUTO) 74.3 %; RED BLOOD COUNT 4.81 10^6/uL (4.20-5.40); RED CELL DISTRIBUTION WIDTH 12.6 % (12.0-15.0); UNCORRECTED WHITE BLOOD COUNT 9.8 x10^3/uL; WHITE BLOOD COUNT 9.8 x10^3/uL (4.8-10.8)
[2016-10-15 14:57] LABS: ALBUMIN/GLOBULIN RATIO 1.6 (1.0-2.2); BILIRUBIN,TOTAL 0.7 mg/dL (0.2-1.0); BUN - BLOOD UREA NITROGEN 20 mg/dL (6-20); CALCIUM 9.1 mg/dL (8.5-10.3); CARBON DIOXIDE - CO2 24 mmol/L (21-32); CHLORIDE 104 mmol/L (101-111); CREATININE 0.6 mg/dL (0.4-1.0); GFR - MDRD 115 (>89); GLUCOSE 110 mg/dL (70-100); LIPASE 26 U/L (22-51); POTASSIUM 3.7 mmol/L (3.5-5.0); SALICYLATE < 6.0 mg/dL; SODIUM 139 mmol/L (135-145); TOTAL PROTEIN 7.5 g/dL (6.7-8.2)
[2016-10-15 14:58] LABS: ACETAMINOPHEN < 10 ug/mL (10-30)
[2016-10-15 16:57] LABS: BILIRUBIN,URINE NEGATIVE (NEGATIVE)
[2016-10-15 17:06] LABS: HCG UR QUAL NEGATIVE; UA CHARGE (STRIP ONLY) YES; UR CULTURE IF IND NOT INDICATED
[2016-10-15] MEDS ORDERED: OLANZapine ODT 5 MG TABLET TL ONE ×4 (18:37→20:34)
--- NOTE | 2016-10-15 19:45 | ED Physician Documentation ---
PD HPI MHE - Stated complaint Stated Complaint: MHE - Chief complaint Chief Complaint: MHE - History obtained from History obtained from: Patient - History of Present Illness Primary symptom: Suicidal ideation Timing - onset: Chronic Pain level max: 0 Pain level now: 0 Similar symptoms before: Diagnosis (depression, SI) Recently seen: Clinic ([facility] kate over by her outpt mental health counselor for [facility].) - Additional information Additional information: Patient does not want to give much history to me other than she states that she feels suicidal. She is accompanied by her outpatient mental health counselor who is speaking with social work. 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 HEENT: Tonsil/Adenoidectomy - Present Medications Home Medications: Ambulatory Orders Medication Instructions Recorded Confirmed Polyethylene Glycol 3350 [Miralax] 17 gm PO DAILY PRN #1 bottle 12/17/15 Gabapentin 600 mg TID 08/25/16 09/19/16 Sumatriptan Succinate PRN 08/25/16 hydrOXYzine PAMOATE [Vistaril] 50 mg TID 08/25/16 09/19/16 Cephalexin 500 mg PO TID #20 tablet 09/16/16 09/19/16 HYDROcod/ACETAM 5/325 [[place] 5/325] 1 - 2 ea PO Q6H PRN #15 tablet 09/16/16 - Allergies Allergies/Adverse Reactions: Allergies Allergy/AdvReac Type Severity Reaction Status Date / Time Penicillins AdvReac Unknown Rash Verified 09/16/16 18:33 Sulfa (Sulfonamide AdvReac Unknown Rash Verified 09/16/16 18:33 Antibiotics) steroids Allergy Hallucinati Uncoded 09/16/16 18:33 ons - Social History Does the pt smoke?: Yes Smoking Status: Current every day smoker Does the pt drink ETOH?: No Does the pt have substance abuse?: Yes - Immunizations Immunizations are current?: Yes - POLST Patient has POLST: No PD ED PE NORMAL - Vitals Vital signs reviewed: Yes - General General: Alert and oriented X 3, No acute distress, Well developed/nourished - HEENT HEENT: Moist mucous membranes - Neck Neck: Supple, no meningeal sign - Cardiac Cardiac: RRR, Strong equal pulses - Respiratory Respiratory: No respiratory distress, Clear bilaterally - Abdomen Abdomen: Soft, Non tender, Non distended - Back Back: No spinal TTP - Derm Derm: Warm and dry - Extremities Extremities: No edema, No calf tenderness / cord - Neuro Neuro: Alert and oriented X 3 - Psych Psych: Other (Anxious, tearful) Results - Vitals Vitals: Vital Signs - 24 hr 10/15/16 10/15/16 10/15/16 14:17 19:48 22:01 Temperature 36.3 C L Heart Rate 137 H 109 H 81 Respiratory 16 18 Rate Blood Pressure 136/94 H 123/92 H O2 Saturation 98 94 96 Oxygen O2 Source Room air - Labs Labs: Laboratory Tests 10/15/16 10/15/16 10/15/16 14:32 14:32 14:32 WBC 9.8 RBC 4.81 Hgb 14.2 Hct 41.8 MCV 86.9 MCH 29.6 MCHC 34.1 RDW 12.6 Plt Count 227 MPV 8.8 Neut # 7.3 H Lymph # 2.0 [place] # 0.4 Eos # 0.0 Baso # 0.1 Absolute Nucleated RBC 0.00 Nucleated RBCs 0.0 Sodium 139 Potassium 3.7 Chloride 104 Carbon Dioxide 24 Anion Gap 11.0 BUN 20 Creatinine 0.6 Estimated GFR (MDRD) 115 Glucose 110 H Calcium 9.1 Total Bilirubin 0.7 AST 25 ALT 23 Alkaline Phosphatase 55 Total Protein 7.5 Albumin 4.6 Globulin 2.9 Albumin/Globulin Ratio 1.6 Lipase 26 TSH 1.10 Urine Color Urine Clarity Urine pH Ur Specific [place] Urine Protein Urine Glucose (UA) Urine Ketones Urine Occult Blood Urine Nitrite Urine Bilirubin Urine Urobilinogen Ur Leukocyte Esterase Ur Microscopic Review Urine Culture Comments Urine HCG, Qual Salicylates < 6.0 Urine Opiates Screen Ur Oxycodone Screen Urine Methadone Screen Ur Propoxyphene Screen Acetaminophen < 10 L Ur Barbiturates Screen Ur Tricyclics Screen Ur Phencyclidine Scrn Ur Amphetamine Screen U Methamphetamines Scrn U Benzodiazepines Scrn Urine Cocaine Screen U Cannabinoids Screen Ethyl Alcohol < 5.0 10/15/16 10/15/16 16:50 16:50 WBC RBC Hgb Hct MCV MCH MCHC RDW Plt Count MPV Neut # Lymph # [place] # Eos # Baso # Absolute Nucleated RBC Nucleated RBCs Sodium Potassium Chloride Carbon Dioxide Anion Gap BUN Creatinine Estimated GFR (MDRD) Glucose Calcium Total Bilirubin AST ALT Alkaline Phosphatase Total Protein Albumin Globulin Albumin/Globulin Ratio Lipase TSH Urine Color YELLOW Urine Clarity CLEAR Urine pH 7.0 Ur Specific [place] 1.025 Urine Protein TRACE Urine Glucose (UA) NEGATIVE Urine Ketones 15 H Urine Occult Blood NEGATIVE Urine Nitrite NEGATIVE Urine Bilirubin NEGATIVE Urine Urobilinogen 1 (NORMAL) Ur Leukocyte Esterase NEGATIVE Ur Microscopic Review NOT INDICATED Urine Culture Comments NOT INDICATED Urine HCG, Qual NEGATIVE Salicylates Urine Opiates Screen NEGATIVE Ur Oxycodone Screen NEGATIVE Urine Methadone Screen NEGATIVE Ur Propoxyphene Screen NEGATIVE Acetaminophen Ur Barbiturates Screen NEGATIVE Ur Tricyclics Screen POSITIVE H Ur Phencyclidine Scrn NEGATIVE Ur Amphetamine Screen NEGATIVE U Methamphetamines Scrn NEGATIVE U Benzodiazepines Scrn POSITIVE H Urine Cocaine Screen NEGATIVE U Cannabinoids Screen POSITIVE H Ethyl Alcohol PD MEDICAL DECISION MAKING - ED course Complexity details: reviewed results, re-evaluated patient, considered differential, d/w patient, d/w forestry consultant ED course: Patient is a 31-year-old female with a long psychiatric history, here for suicidal ideation. Social work did not feel that she was voluntary, therefore a [facility] P was dispatch, Nesha, who saw the patient and detained the patient.. She will be sent to [facility] Dr. Ortiz accepts. Medically clear for psychiatric care. This document was made in part using voice recognition software. While efforts are made to proofread this document, sound alike and grammatical errors may occur. Departure - Departure Disposition: 02 Transfer Acute Care Hosp Clinical Impression: Suicidal ideation Condition: Stable
[2016-10-15] MEDS ORDERED: KETOROLAC 60 MG/2 ML VIAL ONE (20:09)
[2016-10-16 01:17] VITALS: BP 117/79
== END 2016-10-16 01:25 | disposition short-term general hospital (02) ==
LOC: ED 14:17
DX: F32.9 Major depressive disorder, single episode, unspecified (principal); R45.851 Suicidal ideations; F17.200 Nicotine dependence, unspecified, uncomplicated; I10 Essential (primary) hypertension; Z79.899 Other long term (current) drug therapy
CPT/HCPCS: 36415; 80053; 80306; 80307; 80320; 80329; 81001; 81003; 81025; 83690; 84443; 85025; 87086; 99283; 99284; 99285

== ENCOUNTER 2016-12-07 08:00 | Outpatient (CLI) | payer MEDICAID ==
[2016-12-07 20:11] LABS: CREATININE 0.8 mg/dL (0.4-1.0); PHOSPHORUS 3.7 mg/dL (2.5-4.6); POTASSIUM 4.7 mmol/L (3.5-5.0)
== END 2016-12-07 08:01 | disposition home or self-care (01) ==
LOC: LAB.N 08:00
PROVIDERS: ATTEND Nurse Practitioner Psychiatric/Mental Health
DX: F43.10 Post-traumatic stress disorder, unspecified (principal); F22 Delusional disorders; F29 Unspecified psychosis not due to a substance or known physiological condition; F31.9 Bipolar disorder, unspecified
CPT/HCPCS: 36415; 80069; 80178; 84443

== ENCOUNTER 2017-05-10 09:58 | Outpatient (CLI) | payer MEDICAID ==
--- NOTE | 2017-05-10 12:09 | XRAY Report ---
DATE OF SERVICE: 05/10/2017 THREE-VIEW LUMBAR SPINE: 05/10/2017 CLINICAL INDICATION: Pain. FINDINGS: AP, lateral, cone down views of the lumbar spine are compared to previous films of 07/22/2013. Degenerative changes in the lower lumbar spine have increased, with small osteophytes and disk space narrowing. Disk space narrowing remains worst at L4-5. Mild degenerative levoscoliosis is now present. There is no evidence of interval fracture. IMPRESSION: PROGRESSION OF DEGENERATIVE CHANGES, NOW WITH MILD DEGENERATIVE LEVOSCOLIOSIS. TD: 05/10/2017 13:08
--- NOTE | 2017-05-10 12:10 | XRAY Report ---
DATE OF SERVICE: 05/10/2017 THREE-VIEW CERVICAL SPINE: 05/10/2017 CLINICAL INDICATION: Neck pain. COMPARISON: 12/01/2014 FINDINGS: AP, lateral, odontoid, swimmer's views of the cervical spine demonstrate reversal of the normal cervical lordosis. Mild degenerative disk disease is present. There is no evidence of fracture or subluxation. The prevertebral soft tissues are unremarkable. IMPRESSION: MILD DEGENERATIVE CHANGES. TD: 05/10/2017 13:09
== END 2017-05-10 09:59 | disposition home or self-care (01) ==
LOC: DI 09:58
PROVIDERS: ATTEND Family Medicine
DX: M50.30 Other cervical disc degeneration, unspecified cervical region (principal); M47.896 Other spondylosis, lumbar region; M41.56 Other secondary scoliosis, lumbar region
CPT/HCPCS: 72040; 72100

== ENCOUNTER 2017-06-28 10:59 | Outpatient (CLI) | payer MEDICAID ==
[2017-06-28 11:19] LABS: BASOPHILS % (AUTO) 0.4 %; EOSINOPHILS # (AUTO) 0.1 10^3/uL (0.0-0.7); EOSINOPHILS % (AUTO) 0.7 %; LYMPHOCYTES # (AUTO) 2.6 10^3/uL (1.5-3.5); LYMPHOCYTES % (AUTO) 29.9 %; MEAN CORPUSCULAR HEMOGLOBIN 29.4 pg (27.0-31.0); MEAN CORPUSCULAR HGB CONC 34.7 g/dL (32.0-36.0); MEAN CORPUSCULAR VOLUME 84.8 fL (81.0-99.0); MEAN PLATELET VOLUME 9.2 fL (7.9-10.8); MONOCYTES # (AUTO) 0.3 10^3/uL (0.0-1.0); MONOCYTES % (AUTO) 3.4 %; NEUTROPHILS # (AUTO) 5.8 10^3/uL (1.5-6.6); NEUTROPHILS % (AUTO) 65.6 %; PLT - PLATELET COUNT 225 10^3/uL (130-450); RED BLOOD COUNT 4.41 10^6/uL (4.20-5.40); RED CELL DISTRIBUTION WIDTH 13.3 % (12.0-15.0); WHITE BLOOD COUNT 8.8 x10^3/uL (4.8-10.8)
[2017-06-28 11:32] LABS: ALBUMIN 4.1 g/dL (3.2-5.5); ALBUMIN/GLOBULIN RATIO 1.2 (1.0-2.2); BILIRUBIN,TOTAL 0.4 mg/dL (0.2-1.0); CALCIUM 8.9 mg/dL (8.5-10.3); CREATININE 0.6 mg/dL (0.4-1.0); PHOSPHORUS 2.6 mg/dL (2.5-4.6); TOTAL PROTEIN 7.4 g/dL (6.7-8.2)
[2017-06-28 12:45] LABS: LITHIUM < 0.05 mmol/L
== END 2017-06-28 11:00 | disposition home or self-care (01) ==
LOC: LAB 10:59
PROVIDERS: ATTEND Nurse Practitioner Psychiatric/Mental Health
DX: F90.2 Attention-deficit hyperactivity disorder, combined type (principal)
CPT/HCPCS: 36415; 80053; 80178; 82306; 84100; 84443; 85025

== ENCOUNTER 2017-07-06 13:54 | Emergency (ER) | payer MEDICAID ==
--- NOTE | 2017-07-06 15:33 | XRAY Report ---
EXAM: CHEST RADIOGRAPHY EXAM DATE: 07/06/2017 03:26 PM. CLINICAL HISTORY: Dyspnea. Productive cough. Recent bronchitis. COMPARISON: None. TECHNIQUE: 2 views. FINDINGS: Lungs/Pleura: No focal opacities evident. No pleural effusion. No pneumothorax. Normal volumes. Mediastinum: Heart and mediastinal contours are unremarkable. Other: None. IMPRESSION: Normal 2-view chest radiography. [facility] Referring Provider Line: [phone] SITE ID: [id number]
[2017-07-06 17:35] VITALS: BP 145/84
[2017-07-06] MEDS ORDERED: IPRATROPIUM/ALBUTEROL 3 ML NEB INH STA (18:22)
--- NOTE | 2017-07-06 18:24 | ED Physician Documentation ---
PD HPI URI - Stated complaint Stated Complaint: CHEST CONGESTION/COUGH - Chief complaint Chief Complaint: Resp - History obtained from History obtained from: Patient, Friend - History of Present Illness Timing - onset: How many months ago (1) Timing duration: Months (1) Timing details: Gradual onset Pain level max: 5 Pain level now: 4 Associated symptoms: Fever (intermittent, subjective), Nasal congestion, Rhinorrhea, Dry cough, Dyspnea (wheezing, has used inhalers in the past). No: Chills, Hemoptysis, Chest pain Contributing factors: Sick contact Improves by: Rest Worsened by: Activity, Breathing Recently seen: Other (states has taken 2 rounds of azithromycin without relief) Review of Systems Nose: reports: Rhinorrhea / runny nose, Congestion Throat: denies: Sore throat Cardiac: denies: Chest pain / pressure Respiratory: reports: Dyspnea, Wheezing GI: denies: Nausea, Vomiting, Diarrhea : denies: Now EGA Skin: denies: Rash Musculoskeletal: denies: Neck pain, Back pain Neurologic: denies: Headache PD PAST MEDICAL HISTORY - Past Medical History Past Medical History: Yes Cardiovascular: Hypertension Respiratory: None Neuro: Headache/migraine Endocrine/Autoimmune: None GI: Chronic constipation : None HEENT: None Psych: Depression, Anxiety, Bipolar disorder, Schizophrenia, Other Musculoskeletal: Chronic back pain Derm: None - Past Surgical History Past Surgical History: Yes /[employer]: Tubal ligation HEENT: Tonsil/Adenoidectomy - Present Medications Home Medications: Ambulatory Orders Medication Instructions Recorded Confirmed Polyethylene Glycol 3350 [Miralax] 17 gm PO DAILY PRN #1 bottle 12/17/15 Gabapentin 600 mg TID 08/25/16 09/19/16 SUMAtriptan succinate [Sumatriptan PRN 08/25/16 Succinate] hydrOXYzine PAMOATE [Vistaril] 50 mg TID 08/25/16 09/19/16 HYDROcod/ACETAM 5/325 [[place] 5/325] 1 - 2 ea PO Q6H PRN #15 tablet 09/16/16 cephALEXin [Cephalexin] 500 mg PO TID #20 tablet 09/16/16 09/19/16 Albuterol Sulf [Ventolin Hfa 1 - 2 puffs INH Q4HR PRN #1 inhaler 07/06/17 Inhaler] Hydrocodone/Acetaminophen 1 - 2 each PO Q6H PRN #10 tablet 07/06/17 [Hydrocodon-Acetaminophen 5-325] - Allergies Allergies/Adverse Reactions: Allergies Allergy/AdvReac Type Severity Reaction Status Date / Time Penicillins AdvReac Unknown Rash Verified 07/06/17 14:11 Sulfa (Sulfonamide AdvReac Unknown Rash Verified 07/06/17 14:11 Antibiotics) steroids Allergy Hallucinati Uncoded 07/06/17 14:11 ons - Social History Does the pt smoke?: Yes Smoking Status: Current every day smoker Does the pt drink ETOH?: No Does the pt have substance abuse?: Yes - Immunizations Immunizations are current?: Yes - POLST Patient has POLST: No PD ED PE NORMAL - Vitals Vital signs reviewed: Yes - General General: Alert and oriented X 3, No acute distress, Well developed/nourished - HEENT HEENT: PERRL, Ears normal, Moist mucous membranes, Pharynx benign - Neck Neck: Supple, no meningeal sign - Cardiac Cardiac: RRR, Strong equal pulses - Respiratory Respiratory: No respiratory distress, Other (wheezing bilaterally) - Abdomen Abdomen: Soft, Non tender, Non distended - Derm Derm: Warm and dry, No rash - Extremities Extremities: No edema - Neuro Neuro: Alert and oriented X 3 - Psych Psych: Normal mood, Normal affect Results - Vitals Vitals: Vital Signs - 24 hr 07/06/17 07/06/17 07/06/17 14:08 17:34 19:13 Temperature 36.3 C L 36.6 C Heart Rate 128 H 115 H 107 H Respiratory 26 H 24 20 Rate Blood Pressure 146/97 H 145/84 H O2 Saturation 97 97 Oxygen O2 Source Room air - Rads (name of study) cxr Radiology: Prelim report reviewed, EMP read contemporaneously, See rad report ( no acute disease) PD MEDICAL DECISION MAKING - ED course Complexity details: reviewed old records, reviewed results, re-evaluated patient , considered differential, d/w patient ED course: Patient is a 32-year-old female who presents to the emergency department with what appears to be a viral upper respiratory infection. Feels better after nebulizer treatment. She is allergic to all steroids, they cause hallucinations. Therefore we will refill an inhaler for her and prescribe a small amount of pain medication. She is well-appearing, nontoxic. No hypoxia. No respiratory distress. No pneumonia. Patient counseled regarding signs and symptoms for which I believe and urgent re-evaluation would be necessary. Patient with good understanding of and agreement to plan and is comfortable going home at this time This document was made in part using voice recognition software. While efforts are made to proofread this document, sound alike and grammatical errors may occur. Departure - Departure Disposition: 01 Home, Self Care Clinical Impression: Upper respiratory tract infection Qualifiers: URI type: unspecified viral URI Qualified Code(s): J06.9 - Acute upper respiratory infection, unspecified Condition: Good Instructions: ED URI Viral W Wheezing Follow-Up: VIVIENNE ENRIQUEZ [Primary Care Provider] - Within 1 week Prescriptions: Albuterol Sulf [Ventolin Hfa Inhaler] 1 - 2 puffs INH Q4HR PRN #1 inhaler PRN Reason: Shortness Of Air/Wheezing Hydrocodone/Acetaminophen [Hydrocodon-Acetaminophen 5-325] 1 - 2 each PO Q6H PRN #10 tablet PRN Reason: pain Comments: Drink plenty of fluids and rest. Return if you worsen. Do not drink alcohol or drive while on narcotic pain medicine. Note that many narcotic pain relievers also contain tylenol/acetaminophen. Please ensure that your total dose of acetaminophen from all sources does not exceed 3 grams (3000mg) per day. You may constipated on this medication, take a stool softener such as "Colace" twice a day while you are on it. Also recommend a jmzm-goe-zocsvqu laxative such as senna or MiraLAX any day that you do not have a bowel movement. If you received narcotic pain medication in the emergency department, do not drive or operate machinery for the next 24 hours. Discharge Date/Time: 07/06/17 19:42
[2017-07-06] MEDS ORDERED: ACETAMINOPHEN 325 MG TABLET PO STA (19:06)
== END 2017-07-06 19:42 | disposition home or self-care (01) ==
LOC: ED 13:54
DX: I10 Essential (primary) hypertension (principal); F17.200 Nicotine dependence, unspecified, uncomplicated; J06.9 Acute upper respiratory infection, unspecified; B97.89 Other viral agents as the cause of diseases classified elsewhere
CPT/HCPCS: 71046; 94640; 99283; A9270

== ENCOUNTER 2017-08-30 12:58 | Emergency (ER) | payer MEDICAID ==
--- NOTE | 2017-08-30 13:46 | XRAY Report ---
EXAM: LEFT FOOT RADIOGRAPHY EXAM DATE: 08/30/2017 01:22 PM. CLINICAL HISTORY: Trauma. COMPARISON: None. TECHNIQUE: 3 views. FINDINGS: Bones: Normal. No fractures or bone lesions. Joints: Normal. No subluxations. Soft Tissues: There is a small plantar calcaneal spur. IMPRESSION: Negative for fracture and subluxation. [facility] Referring Provider Line: [phone] SITE ID: [id number]
--- NOTE | 2017-08-30 13:51 | XRAY Report ---
EXAM: LEFT ANKLE RADIOGRAPHY EXAM DATE: 08/30/2017 01:36 PM. CLINICAL HISTORY: Trauma. COMPARISON: None. TECHNIQUE: 3 views. FINDINGS: Bones: Normal. No fractures or bone lesions. Joints: Normal. No effusion. No subluxations. The ankle mortise is normally aligned. Soft Tissues: There is lateral ankle soft tissue swelling. There is a small plantar calcaneal spur. IMPRESSION: Soft tissue swelling without fracture. [facility] Referring Provider Line: [phone] SITE ID: [id number]
[2017-08-30] MEDS ORDERED: HYDROcod/ACETAM 5/325 MG TABLET PO STA (14:16)
--- NOTE | 2017-08-30 14:19 | ED Physician Documentation ---
History of Present Illness - Stated complaint Stated Complaint: LEFT FOOT SWOLLEN - Chief complaint Chief Complaint: Ext Problem - Additonal information Additional information: hx from pt hit foot on heavy object pain bruise swell to top of L foot and ant ankle region denies preg otherwise well states cannot take NSAIDs Review of Systems : denies: Now EGA Musculoskeletal: reports: Pain with weight bearing PD PAST MEDICAL HISTORY - Past Medical History Past Medical History: Yes Cardiovascular: Hypertension Respiratory: None Endocrine/Autoimmune: None GI: Chronic constipation : None HEENT: None Psych: Depression, Anxiety, Bipolar disorder, Schizophrenia, Other Musculoskeletal: Chronic back pain Derm: None - Past Surgical History 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 HEENT: Tonsil/Adenoidectomy - Present Medications Home Medications: Ambulatory Orders Medication Instructions Recorded Confirmed Gabapentin 600 mg PO TID 08/25/16 09/19/16 SUMAtriptan succinate [Sumatriptan 1 tab PO DAILY 08/25/16 Succinate] hydrOXYzine PAMOATE [Vistaril] 50 mg PO TID 08/25/16 09/19/16 [place] 600 mg PO BID 08/30/17 - Allergies Allergies/Adverse Reactions: Allergies Allergy/AdvReac Type Severity Reaction Status Date / Time Penicillins AdvReac Unknown Rash Verified 08/30/17 13:05 Sulfa (Sulfonamide AdvReac Unknown Rash Verified 08/30/17 13:05 Antibiotics) steroids Allergy Hallucinati Uncoded 08/30/17 13:05 ons - Social History Does the pt smoke?: Yes Smoking Status: Current every day smoker Does the pt drink ETOH?: No Does the pt have substance abuse?: No - Immunizations Immunizations are current?: Yes - POLST Patient has POLST: No PD ED PE NORMAL - Vitals Vital signs reviewed: Yes - Extremities Extremities: Other (LLE early bruising and STS proximal foot and ant lat ankle, TTP diffusely, no gross deformity, no laxity, MSV intact) - Neuro Neuro: Alert and oriented X 3 Results - Vitals Vitals: Vital Signs - 24 hr 08/30/17 13:03 Temperature 36.9 C Heart Rate 108 H Respiratory 18 Rate Blood Pressure 138/100 H O2 Saturation 97 Oxygen O2 Source Room air PD MEDICAL DECISION MAKING - ED course ED course: HR noted - pt CC is not suggestive of sepsis PE etc Departure - Departure Disposition: 01 Home, Self Care Clinical Impression: Foot contusion Qualifiers: Encounter type: initial encounter Laterality: left Qualified Code(s): S90.32XA - Contusion of left foot, initial encounter Condition: Good Instructions: ED Contusion Foot Follow-Up: VIVIENNE ENRIQUEZ [Primary Care Provider] - Comments: Wear the walking boot when standing or walking Take it off at night or at rest for better circulation Ice and tylenol as needed for the pain If still too painful to walk in two weeks, please see your PMD for consideration of further imaging
[2017-08-30 14:25] VITALS: BP 130/86
== END 2017-08-30 14:36 | disposition home or self-care (01) ==
LOC: ED 12:58
DX: S90.32XA Contusion of left foot, initial encounter (principal); W22.09XA Striking against other stationary object, initial encounter; Y93.89 Activity, other specified; F17.200 Nicotine dependence, unspecified, uncomplicated; I10 Essential (primary) hypertension
CPT/HCPCS: 73610; 73630; 99283; A9270

== ENCOUNTER 2017-10-11 19:59 | Emergency (ER) | payer MEDICAID ==
--- NOTE | 2017-10-11 20:22 | ED Physician Documentation ---
PD HPI HEENT - Stated complaint Stated Complaint: BROKEN TOOTH - Chief complaint Chief Complaint: General - History obtained from History obtained from: Patient - History of Present Illness Timing - onset: Today (she has had decay of the upper molar tooth for awhile with prior broken part of it, but it broke significantly today with simple chewing and is hurting a lot. [facility] and was given appt for Dec 07.) Timing - details: Abrupt onset, Still present Location: Tooth (right upper first molar) Associated symptoms: No: Fever, Swollen nodes, Facial swelling Recently seen: Not recently seen Review of Systems Constitutional: denies: Fever, Chills Nose: denies: Rhinorrhea / runny nose, Congestion Throat: denies: Sore throat Respiratory: denies: Cough PD PAST MEDICAL HISTORY - Past Medical History Past Medical History: Yes Cardiovascular: Hypertension Respiratory: None Endocrine/Autoimmune: None GI: Chronic constipation : None HEENT: None Psych: Depression, Anxiety, Bipolar disorder, Schizophrenia, Other Musculoskeletal: Chronic back pain Derm: None - Past Surgical History 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 HEENT: Tonsil/Adenoidectomy - Present Medications Home Medications: Ambulatory Orders Medication Instructions Recorded Confirmed Gabapentin 800 mg PO TID 08/25/16 09/19/16 SUMAtriptan succinate [Sumatriptan 1 tab PO DAILY PRN 08/25/16 Succinate] hydrOXYzine PAMOATE [Vistaril] 50 mg PO TID PRN 08/25/16 09/19/16 [place] 600 mg PO TID 08/30/17 Doxycycline Monohydrate 100 mg PO BID #10 tablet 10/11/17 Naproxen 375 mg PO BID #15 tablet 10/11/17 Tramadol HCl 50 mg PO Q6H PRN #15 tablet 10/11/17 - Allergies Allergies/Adverse Reactions: Allergies Allergy/AdvReac Type Severity Reaction Status Date / Time Penicillins AdvReac Unknown Rash Verified 10/11/17 20:21 Sulfa (Sulfonamide AdvReac Unknown Rash Verified 10/11/17 20:21 Antibiotics) steroids Allergy Hallucinati Uncoded 10/11/17 20:21 ons - Social History Does the pt smoke?: Yes Smoking Status: Current every day smoker Does the pt drink ETOH?: No Does the pt have substance abuse?: No - Immunizations Immunizations are current?: Yes - POLST Patient has POLST: No PD ED PE NORMAL - Vitals Vital signs reviewed: Yes - General General: Alert and oriented X 3, No acute distress, Well developed/nourished - HEENT HEENT: Pharynx benign. No: Dentition benign (right upper first molar with central breakdown leaving cup shaped defect. No drainage, no gum swelling. No adenopathy. ) - Neck Neck: Supple, no meningeal sign, No adenopathy Results - Vitals Vitals: Vital Signs - 24 hr 10/11/17 10/11/17 20:06 21:13 Temperature 36.1 C L 36.6 C Heart Rate 129 H 100 Respiratory 19 18 Rate Blood Pressure 143/98 H 130/89 H O2 Saturation 96 97 Oxygen O2 Source Room air PD MEDICAL DECISION MAKING - ED course Complexity details: considered differential (Cavit placed in decay defect and it fit in well. She has had decay for a while and not broken more, so concern for mild infection. Gave meds and abx. Needs dental care definitively though. ) , d/w patient - Sepsis Event Vital Signs: Vital Signs - 24 hr 10/11/17 10/11/17 20:06 21:13 Temperature 36.1 C L 36.6 C Heart Rate 129 H 100 Respiratory 19 18 Rate Blood Pressure 143/98 H 130/89 H O2 Saturation 96 97 Oxygen O2 Source Room air Departure - Departure Disposition: 01 Home, Self Care Clinical Impression: Pain due to dental caries Broken tooth Qualifiers: Encounter type: initial encounter Fracture type: open Qualified Code(s): S02.5XXB - Fracture of tooth (traumatic), initial encounter for open fracture Condition: Stable Record reviewed to determine appropriate education?: Yes Instructions: ED Cavity Dental Follow-Up: VIVIENNE ENRIQUEZ [Primary Care Provider] - Kev Canales DDS [Provider Admit Priv/Credential] - Prescriptions: Doxycycline Monohydrate 100 mg PO BID #10 tablet Naproxen 375 mg PO BID #15 tablet Tramadol HCl 50 mg PO Q6H PRN #15 tablet PRN Reason: Pain Comments: Naproxen low-dose anti-inflammatory twice daily for 5 days for the inflammation. Add Tylenol or tramadol if needed for pain. Doxycycline twice daily antibiotic in case of early infection. Mostly the tooth is broken and hopefully the temporary filling will stand for a while but you will need to have dental care for more definitive treatment. Follow-up with dental clinic as able. You could call and see if the oral surgeon would be able to see you though they may not take simple extractions but you can call and check. Discharge Date/Time: 10/11/17 21:13
[2017-10-11] MEDS ORDERED: DOXYCYCLINE 100 MG TABLET PO STA (20:44)
[2017-10-11] MEDS ORDERED: traMADol 50 MG TABLET PO STA (20:44)
[2017-10-11] MEDS ORDERED: NAPROXEN 250 MG TABLET PO STA (20:44)
[2017-10-11 21:14] VITALS: BP 130/89
== END 2017-10-11 21:13 | disposition home or self-care (01) ==
LOC: ED 19:59
DX: S02.5XXB Fracture of tooth (traumatic), initial encounter for open fracture (principal); X58.XXXA Exposure to other specified factors, initial encounter; K02.9 Dental caries, unspecified; K08.89 Other specified disorders of teeth and supporting structures; I10 Essential (primary) hypertension; F17.200 Nicotine dependence, unspecified, uncomplicated
CPT/HCPCS: 99283; A9270

== ENCOUNTER 2017-11-15 10:17 | Outpatient (CLI) | payer MEDICAID ==
--- NOTE | 2017-11-15 12:26 | Ultrasound Report ---
Procedure Date: 11/15/2017 Accession Number: [id number] / [id number] Procedure: US - Abdomen Complete CPT Code: FULL RESULT: EXAM: Abdomen Complete DATE: 11/15/2017 12:16 PM CLINICAL HISTORY: ABDOMINAL PAIN COMPARISON: None. TECHNIQUE: Real-time scanning was performed with static images obtained. FINDINGS: Liver: Echogenic with heterogeneous echotexture in keeping with hepatic steatosis. At least 19 cm. Main portal vein flow: Hepatopetal. Gallbladder: Normal. No stones, wall thickening, or sonographic Azul's sign. Biliary System: Common bile duct measures 5 mm. No intrahepatic or extrahepatic ductal dilatation. Pancreas: Visualized portion is unremarkable. Kidneys: Right: 11.9 cm longitudinally. Normal. No contour-deforming mass, stones, or hydronephrosis. Left: 11.6 cm longitudinally. Normal. No contour-deforming mass, stones, or hydronephrosis. Spleen: 10 cm. Normal in size and echotexture. Aorta and Inferior Vena Cava: Unremarkable. IMPRESSION: Hepatic steatosis. RADIA
== END 2017-11-15 10:18 | disposition home or self-care (01) ==
LOC: DI 10:17
PROVIDERS: ATTEND Family Medicine
DX: K76.0 Fatty (change of) liver, not elsewhere classified (principal)
CPT/HCPCS: 76700

== ENCOUNTER 2017-11-18 13:07 | Emergency (ER) | payer MEDICAID ==
[2017-11-18 13:26] VITALS: BP 137/93
[2017-11-18 14:01] LABS: LEUKOCYTE ESTERASE, URINE NEGATIVE (NEGATIVE); NITRITE,URINE NEGATIVE (NEGATIVE); UROBILINOGEN,URINE 0.2 (NORMAL) E.U./dL (NORMAL)
[2017-11-18 14:02] LABS: BILIRUBIN,URINE NEGATIVE (NEGATIVE); GLUCOSE, URINE (UA) NEGATIVE (NEGATIVE); KETONES,URINE (UA) NEGATIVE (NEGATIVE); OCCULT BLOOD,URINE NEGATIVE (NEGATIVE); PROTEIN,URINE NEGATIVE (NEGATIVE)
[2017-11-18 14:04] LABS: CLARITY,URINE CLEAR (CLEAR); HCG UR QUAL NEGATIVE
--- NOTE | 2017-11-18 14:27 | ED Physician Documentation ---
History of Present Illness - Stated complaint Stated Complaint: ABD PX - Chief complaint Chief Complaint: Abd Pain - Additonal information Additional information: hx from pt 32 f denies preg just finished period and s/p tubal to ED with epigastric pain has had this int for years has had endoscopy which was reportedly neg had sono last week also neg (for biliary dz, she does have fatty liver) + NV no diarrhea Review of Systems Constitutional: denies: Fever Cardiac: denies: Chest pain / pressure GI: reports: Abdominal Pain, Nausea, Vomiting. 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 HEENT: Tonsil/Adenoidectomy - Present Medications Home Medications: Ambulatory Orders Medication Instructions Recorded Confirmed Gabapentin 800 mg PO TID 08/25/16 09/19/16 SUMAtriptan succinate [Sumatriptan 1 tab PO DAILY PRN 08/25/16 Succinate] hydrOXYzine PAMOATE [Vistaril] 50 mg PO TID PRN 08/25/16 09/19/16 [place] 600 mg PO TID 08/30/17 OLANZapine [Zyprexa] 10 mg PO 11/18/17 Sucralfate 1 gm PO ACHS #120 tablet 11/18/17 raNITIdine [Zantac] 150 mg PO BID #60 tablet 11/18/17 - Allergies Allergies/Adverse Reactions: Allergies Allergy/AdvReac Type Severity Reaction Status Date / Time Penicillins AdvReac Unknown Rash Verified 11/18/17 13:26 Sulfa (Sulfonamide AdvReac Unknown Rash Verified 11/18/17 13:26 Antibiotics) steroids Allergy Hallucinati Uncoded 11/18/17 13:26 ons - Social History Does the pt smoke?: Yes Smoking Status: Current every day smoker Does the pt drink ETOH?: No Does the pt have substance abuse?: No - Immunizations Immunizations are current?: Yes - POLST Patient has POLST: No PD ED PE NORMAL - Vitals Vital signs reviewed: Yes - Cardiac Cardiac: RRR - Respiratory Respiratory: No respiratory distress, Clear bilaterally - Abdomen Abdomen: Soft, Other (TTP epigastric s ulsatile mass or peritoneal signs) - Derm Derm: Normal color Results - Vitals Vitals: Vital Signs - 24 hr 11/18/17 13:24 Temperature 36.7 C Heart Rate 112 H Respiratory 18 Rate Blood Pressure 137/93 H O2 Saturation 95 Oxygen O2 Source Room air - Labs Labs: Laboratory Tests 11/18/17 11/18/17 13:42 14:35 Sodium 137 Potassium 3.5 Chloride 106 Carbon Dioxide 23 Anion Gap 8.0 BUN 11 Creatinine 0.6 Estimated GFR (MDRD) 114 Glucose 94 Calcium 8.8 Total Bilirubin 0.4 AST 14 ALT 17 Alkaline Phosphatase 65 Total Protein 6.9 Albumin 3.9 Globulin 3.0 Albumin/Globulin Ratio 1.3 Lipase 27 Urine Color YELLOW Urine Clarity CLEAR Urine pH 6.0 Ur Specific [place] 1.025 Urine Protein NEGATIVE Urine Glucose (UA) NEGATIVE Urine Ketones NEGATIVE Urine Occult Blood NEGATIVE Urine Nitrite NEGATIVE Urine Bilirubin NEGATIVE Urine Urobilinogen 0.2 (NORMAL) Ur Leukocyte Esterase NEGATIVE Ur Microscopic Review NOT INDICATED Urine Culture Comments NOT INDICATED Urine HCG, Qual NEGATIVE PD MEDICAL DECISION MAKING - Sepsis Event Vital Signs: Vital Signs - 24 hr 11/18/17 13:24 Temperature 36.7 C Heart Rate 112 H Respiratory 18 Rate Blood Pressure 137/93 H O2 Saturation 95 Oxygen O2 Source Room air Departure - Departure Disposition: 01 Home, Self Care Clinical Impression: Abdominal pain Qualifiers: Abdominal location: upper abdomen, unspecified Qualified Code(s): R10.10 - Upper abdominal pain, unspecified Condition: Good Instructions: ED Abdominal Pain Unkn Cause Follow-Up: VIVIENNE ENRIQUEZ [Primary Care Provider] - Prescriptions: raNITIdine [Zantac] 150 mg PO BID #60 tablet Sucralfate 1 gm PO ACHS #120 tablet Comments: The ultrasound did not show any gallstones You tell me your recent endoscopy looked OK Your labs today are fine CTs you have had in the past for simialr symptoms did not show any major problems. If your symptoms worsen, you may need another CT but that is a lot of radiation to be exposed too - in any case there are no CT services at [facility] today so you will need to follow up with your PMD I have added two more medications for you to take to try and relieve the symptoms. Please follow up with your PMD later this week
[2017-11-18] MEDS ORDERED: SUCRALFATE 1 GM/10 ML UDC PO STA (14:28)
[2017-11-18] MEDS ORDERED: FAMOTIDINE 20 MG TABLET PO STA (14:28)
[2017-11-18 15:15] LABS: ALBUMIN 3.9 g/dL (3.2-5.5); ALBUMIN/GLOBULIN RATIO 1.3 (1.0-2.2); BILIRUBIN,TOTAL 0.4 mg/dL (0.2-1.0); CALCIUM 8.8 mg/dL (8.5-10.3); CREATININE 0.6 mg/dL (0.4-1.0); TOTAL PROTEIN 6.9 g/dL (6.7-8.2)
== END 2017-11-18 16:04 | disposition home or self-care (01) ==
LOC: ED 13:07
DX: R10.10 Upper abdominal pain, unspecified (principal); I10 Essential (primary) hypertension; F17.200 Nicotine dependence, unspecified, uncomplicated
CPT/HCPCS: 36415; 80053; 81003; 81025; 83690; 99281; 99283; A9270; 81001; 87086

== ENCOUNTER 2017-12-30 08:00 | Outpatient (CLI) | payer MEDICAID | END 2017-12-30 23:59 | LOC: LAB.R 08:00 | PROVIDERS: ATTEND Nurse Practitioner Obstetrics & Gynecology | DX: N39.46 Mixed incontinence (principal); N76.0 Acute vaginitis | CPT/HCPCS: 87086; 87480; 87491; 87510; 87591; 87660 ==

== ENCOUNTER 2018-02-11 08:51 | Outpatient (CLI) | payer MEDICAID ==
[2018-02-11 12:37] LABS: ALBUMIN 4.3 g/dL (3.2-5.5); ALBUMIN/GLOBULIN RATIO 1.5 (1.0-2.2); ALKALINE PHOSPHATASE 75 IU/L (42-121); ALT ALANINE AMINOTRANSFERASE 32 IU/L (10-60); AST ASPARTATE AMINOTRANSFERASE 36 IU/L (10-42); BILIRUBIN,TOTAL 0.4 mg/dL (0.2-1.0); BUN - BLOOD UREA NITROGEN 10 mg/dL (6-20); CALCIUM 9.1 mg/dL (8.5-10.3); CARBON DIOXIDE - CO2 27 mmol/L (21-32); CHLORIDE 104 mmol/L (101-111); CHOL/HDL RATIO 3.9 (<4.4); CHOLESTEROL 176 mg/dL; CREATININE 0.7 mg/dL (0.4-1.0); GFR - MDRD 96 (>89); GLUCOSE 106 mg/dL (70-100); HDL CHOLESTEROL 45 mg/dL; LDL CHOLESTEROL,CALCULATED 98 mg/dL; LDL/HDL RATIO 2.2 (<4.4); SODIUM 139 mmol/L (135-145); TOTAL PROTEIN 7.1 g/dL (6.7-8.2); VLDL CHOLESTEROL 33 mg/dL
[2018-02-11 12:40] LABS: LITHIUM 0.45 mmol/L
== END 2018-02-11 08:52 | disposition home or self-care (01) ==
LOC: LAB.N 08:51
PROVIDERS: ATTEND Registered Nurse
DX: F31.9 Bipolar disorder, unspecified (principal); Z79.899 Other long term (current) drug therapy
CPT/HCPCS: 36415; 80053; 80061; 80178; 83721; 84443

== ENCOUNTER 2018-03-21 08:55 | Outpatient (CLI) | payer MEDICAID ==
--- NOTE | 2018-03-21 19:44 | MRI Report ---
Reason: SCIATICA, RIGHT SIDE Procedure Date: 03/21/2018 Accession Number: [id number] / [id number] Procedure: MRI - Lumbar Spine W/O CPT Code: FULL RESULT: EXAM: MRI LUMBAR SPINE WITHOUT CONTRAST EXAM DATE: 03/21/2018 09:44 AM. CLINICAL HISTORY: Sciatica, right side. "Low back pain with pain, numbness, and weakness right leg". COMPARISON: LUMBAR SPINE 2 VIEW 05/10/2017 10:17 AM. TECHNIQUE: Multiplanar, multisequence T1-weighted and fluid-sensitive sequences of the lumbar spine from T12 to S1 without contrast. Other: None. FINDINGS: Spinal Canal: The conus terminates at L1-L2. The conus medullaris and cauda equina are unremarkable. Alignment: No scoliosis or spondylolisthesis. Bone Marrow: Five [id number] lumbar vertebral bodies are assumed. Lumbarization of S1. No gross fractures or bone lesions. No bone marrow replacement. Disk Levels/Facets: T11-T12: Moderate disk degeneration. Moderate left foraminal stenosis from facet hypertrophy and ligamentum flavum thickening. Mild right foraminal stenosis from facet degenerative hypertrophy. T12-L1: Unremarkable. L1-L2: Unremarkable. L2-L3: Unremarkable. L3-L4: Mild disk degeneration. Moderate right foraminal stenosis from 2 mm foraminal disk protrusion and facet hypertrophy. Moderate bilateral facet joint arthrosis. Moderate left foraminal stenosis from foraminal 2 mm disk protrusion and facet degenerative hypertrophy. L4-L5: Severe disk degeneration. Modic type I degenerative vertebral body marrow signal. Mild increased fluid left apophyseal joint. Moderate left foraminal stenosis from 2 mm disk bulge osteophyte complex and facet hypertrophy. Moderate right foraminal stenosis from disk degeneration and foraminal 2 mm disk bulge osteophyte complex. Mild central spinal canal stenosis. L5-S1: Mild facet joint arthrosis. Posterior right paracentral 2 mm disk protrusion osteophyte complex. Moderate right foraminal stenosis from a 2 mm foraminal disk protrusion osteophyte complex and disk degeneration. Mild effacement undersurface exiting right L5 nerve root moderate left foraminal stenosis from disk degeneration, 2 mm foraminal disk protrusion osteophyte complex and facet hypertrophy. Severe disk degeneration. Musculature: Normal. No edema or fatty atrophy. Other: The partially visualized retroperitoneum is unremarkable. IMPRESSION: 1. Severe L4-L5 disk degeneration with Modic type I degenerative marrow edema right L4-L5 interspace. 2. Mild central spinal canal stenosis L4-L5 from diffuse disk bulge osteophyte complex and facet hypertrophy. 3. Moderate bilateral L3-L4, moderate bilateral L4-L5 and moderate bilateral L5-S1 foraminal stenosis. Comment: The following findings are so common in adults without low back pain that while we report their presence, they must be interpreted with caution and in the context of the clinical situation. (Reference Rickiek et al, Spine 2001) Prevalence of findings in patients without low back pain: Disk degeneration (any evidence): 92% Disk desiccation/T2 signal loss: 83% Disk height loss: 56% Disk bulge: 64% Disk protrusion: 32% Annular tear/high intensity zone: 38% RADIA
== END 2018-03-21 08:56 | disposition home or self-care (01) ==
LOC: DI 08:55
PROVIDERS: ATTEND Family Medicine
DX: M51.16 Intervertebral disc disorders with radiculopathy, lumbar region (principal); M48.061 Spinal stenosis, lumbar region without neurogenic claudication; M25.78 Osteophyte, vertebrae
CPT/HCPCS: 72148

== ENCOUNTER 2018-09-17 20:02 | Emergency (ER) | payer MEDICAID ==
[2018-09-17 20:12] VITALS: BP 128/94
--- NOTE | 2018-09-17 20:15 | ED Physician Documentation ---
History of Present Illness - Stated complaint Stated Complaint: UNALBE TO URINATE - Chief complaint Chief Complaint: General - History obtained from History obtained from: Patient - Additonal information Additional information: Patient is a 33-year-old female with significant psychiatric history presenting with urinary complaints over the past several days. Patient admits to dysuria, inability to completely empty, and urinary frequency but no hematuria, abdominal pain, nausea, vomiting, or fever. Patient admits to having UTIs remotely and states symptoms are similar to such. Patient denies any vaginal complaints and last menstrual period earlier this month. No other improving or worsening factors noted. 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 HEENT: Tonsil/Adenoidectomy - Present Medications Home Medications: Ambulatory Orders Medication Instructions Recorded Confirmed Gabapentin 800 mg PO TID 08/25/16 09/19/16 SUMAtriptan succinate [Sumatriptan 1 tab PO DAILY PRN 08/25/16 Succinate] hydrOXYzine PAMOATE [Vistaril] 50 mg PO TID PRN 08/25/16 09/19/16 [place] 600 mg PO TID 08/30/17 OLANZapine [Zyprexa] 10 mg PO 11/18/17 Sucralfate 1 gm PO ACHS #120 tablet 11/18/17 raNITIdine [Zantac] 150 mg PO BID #60 tablet 11/18/17 Phenazopyridine HCl [Pyridium] 200 mg PO TID PRN #6 tablet 09/17/18 - Allergies Allergies/Adverse Reactions: Allergies Allergy/AdvReac Type Severity Reaction Status Date / Time Penicillins AdvReac Unknown Rash Verified 09/17/18 20:12 Sulfa (Sulfonamide AdvReac Unknown Rash Verified 09/17/18 20:12 Antibiotics) steroids Allergy Hallucinati Uncoded 11/18/17 13:26 ons - Social History Does the pt smoke?: Yes Smoking Status: Current every day smoker Does the pt drink ETOH?: No Does the pt have substance abuse?: No - Immunizations Immunizations are current?: Yes - POLST Patient has POLST: No PD ED PE NORMAL - Vitals Vital signs reviewed: Yes - General General: Alert and oriented X 3, No acute distress, Well developed/nourished, Other (Poor hygiene, Slightly rocking back and forth holding vaginal area) - HEENT HEENT: Atraumatic - Cardiac Cardiac: RRR, No murmur - Respiratory Respiratory: No respiratory distress, Clear bilaterally - Abdomen Abdomen: Soft, Non tender, Non distended - Derm Derm: Normal color, Warm and dry, No rash - Extremities Extremities: No deformity, No tenderness to palpate - Neuro Neuro: No motor deficit, No sensory deficit - Psych Psych: Other (Appears slightly anxious, poor hygiene) Results - Vitals Vitals: Vital Signs - 24 hr 09/17/18 09/17/18 20:05 20:15 Temperature 36.6 C Heart Rate 106 H Respiratory 18 18 Rate Blood Pressure 128/94 H O2 Saturation 97 Oxygen O2 Source Room air - Labs Labs: Laboratory Tests 09/17/18 20:07 Urine Color YELLOW Urine Clarity CLEAR Urine pH 6.0 Ur Specific [place] <=1.005 Urine Protein NEGATIVE Urine Glucose (UA) NEGATIVE Urine Ketones NEGATIVE Urine Occult Blood NEGATIVE Urine Nitrite NEGATIVE Urine Bilirubin NEGATIVE Urine Urobilinogen 0.2 (NORMAL) Ur Leukocyte Esterase NEGATIVE Ur Microscopic Review NOT INDICATED Urine Culture Comments NOT INDICATED Urine HCG, Qual NEGATIVE PD MEDICAL DECISION MAKING - ED course Complexity details: reviewed old records, reviewed results, re-evaluated patie nt, considered differential, d/w patient, d/w family ED course: Patient presenting with complaints indicative of UTI. Patient denies abdominal complaints and have low suspicion for intra-abdominal pathologies including nephrolithiasis, pyonephritis, AAA, small bowel obstruction, dissection, or other intra-abdominal pathology, but considered. Patient also denies other v aginal complaints and have low suspicion for STDs, ovarian torsion, ovarian cyst, cervicitis, or other. Urine sample obtained and did not show evidence of or infection. At this time, plan to offer Pyridium for symptomatic relief and to follow-up with her primary care. Departure - Departure Disposition: 01 Home, Self Care Clinical Impression: Dysuria Condition: Good Instructions: ED Dysuria Uncertain Cause Follow-Up: Isma Redman [Primary Care Provider] - Within 3 Days Prescriptions: Phenazopyridine HCl [Pyridium] 200 mg PO TID PRN #6 tablet PRN Reason: dysuria Comments: May use Pyridium as described to help relieve symptoms. Also recommend hydration, healthy diet, rest, and follow-up with your primary care physician in next 2 to 3 days. Return to ED sooner if experience worsening symptoms or other concerns.
[2018-09-17 20:17] LABS: BILIRUBIN,URINE NEGATIVE (NEGATIVE); GLUCOSE, URINE (UA) NEGATIVE (NEGATIVE); KETONES,URINE (UA) NEGATIVE (NEGATIVE); LEUKOCYTE ESTERASE, URINE NEGATIVE (NEGATIVE); NITRITE,URINE NEGATIVE (NEGATIVE); OCCULT BLOOD,URINE NEGATIVE (NEGATIVE); PROTEIN,URINE NEGATIVE (NEGATIVE); UROBILINOGEN,URINE 0.2 (NORMAL) E.U./dL (NORMAL)
[2018-09-17 20:18] LABS: CLARITY,URINE CLEAR (CLEAR); HCG UR QUAL NEGATIVE
== END 2018-09-17 20:36 | disposition home or self-care (01) ==
LOC: ED 20:02
DX: R30.0 Dysuria (principal); R35.0 Frequency of micturition; R39.198 Other difficulties with micturition; I10 Essential (primary) hypertension; F17.200 Nicotine dependence, unspecified, uncomplicated
CPT/HCPCS: 81001; 81003; 81025; 87086; 99283

== ENCOUNTER 2018-09-29 12:52 | Emergency (ER) | payer MEDICAID ==
[2018-09-29 13:51] LABS: BASOPHILS # (AUTO) 0.1 10^3/uL (0.0-0.1); BASOPHILS % (AUTO) 0.9 %; EOSINOPHILS # (AUTO) 0.1 10^3/uL (0.0-0.7); EOSINOPHILS % (AUTO) 1.1 %; HGB - HEMOGLOBIN 13.1 g/dL (12.0-16.0); LYMPHOCYTES # (AUTO) 1.6 10^3/uL (1.5-3.5); MEAN CORPUSCULAR HGB CONC 34.1 g/dL (32.0-36.0); MEAN PLATELET VOLUME 9.6 fL (7.9-10.8); MONOCYTES # (AUTO) 0.4 10^3/uL (0.0-1.0); MONOCYTES % (AUTO) 4.4 %; NEUTROPHILS # (AUTO) 7.4 10^3/uL (1.5-6.6); NEUTROPHILS % (AUTO) 76.6 %; PLT - PLATELET COUNT 242 10^3/uL (130-450); RED BLOOD COUNT 4.36 10^6/uL (4.20-5.40); RED CELL DISTRIBUTION WIDTH 13.3 % (12.0-15.0); WHITE BLOOD COUNT 9.6 x10^3/uL (4.8-10.8)
[2018-09-29 13:57] LABS: MUDS CUTOFF CONCENTRATIONS CUTOFF CONC BELOW:
[2018-09-29 13:59] LABS: GLUCOSE, URINE (UA) NEGATIVE (NEGATIVE); KETONES,URINE (UA) >=80 mg/dL (NEGATIVE); LEUKOCYTE ESTERASE, URINE NEGATIVE (NEGATIVE); NITRITE,URINE NEGATIVE (NEGATIVE); OCCULT BLOOD,URINE TRACE-INTA (NEGATIVE); PH,URINE 6.5 PH (5.0-7.5); PROTEIN,URINE TRACE mg/dL (NEGATIVE); UROBILINOGEN,URINE 0.2 (NORMAL) E.U./dL (NORMAL)
[2018-09-29] MEDS ORDERED: DEXAMETHASONE 10 MG/ML VIAL PO STA (13:59)
[2018-09-29] MEDS ORDERED: CHERRY SYRUP 10 ML UDC PO ONE (13:59)
[2018-09-29] MEDS ORDERED: SUMAtriptan 6 MG/0.5 ML VIAL SUBQ STA (13:59)
--- NOTE | 2018-09-29 14:02 | ED Physician Documentation ---
PD HPI MHE - Stated complaint Stated Complaint: DOESN'T FEEL SAFE/HEADACHE - Chief complaint Chief Complaint: General - History obtained from History obtained from: Patient, Friend, Caregiver - History of Present Illness Primary symptom: Suicidal ideation, Anxiety Timing - onset: How many weeks ago (2.5) Contributing factors: Family Similar symptoms before: Diagnosis (depression with SI) Recently seen: Clinic - Additional information Additional information: 33-year-old female with a history of schizoaffective disorder and depression with suicidal ideation has developed suicidal ideation and anxiety believed to be triggered by the stress of her son coming to visit. Her son is 14 years old and is living with her for the summer. The patient is fearful for the possibility of failure. She has been more anxious than usual and she is also developed some taste perversion and is not eating. She has not eaten for about 4 days and she has been drinking fluids but food taste rotten. She has increased suicidal ideation and she has a lethal plan to go to the bridge and jump off. She has had slight cough she has not had fever and she has migraine headache currently. Review of Systems Constitutional: denies: Fever Eyes: denies: Decreased vision Ears: denies: Ear pain Nose: reports: Rhinorrhea / runny nose, Congestion Throat: denies: Sore throat Cardiac: denies: Chest pain / pressure, Palpitations Respiratory: reports: Cough. denies: Dyspnea GI: denies: Abdominal Pain, Nausea, Vomiting : denies: Dysuria, Frequency Skin: denies: Rash Musculoskeletal: denies: Neck pain, Back pain, Extremity pain Neurologic: denies: Generalized weakness, Focal weakness, Numbness Psychiatric: reports: Depressed, Suicidal, Anxiety PD PAST MEDICAL HISTORY - Past Medical History Past Medical History: No Cardiovascular: Hypertension Respiratory: None Neuro: Headaches Endocrine/Autoimmune: None GI: Chronic constipation OPTICAL TECHNICIAN: None : None HEENT: None Psych: Depression, Anxiety, Bipolar disorder, Schizophrenia, Other Musculoskeletal: Chronic back pain Derm: None - Past Surgical History Past Surgical History: Yes /OPTICAL TECHNICIAN: Tubal ligation HEENT: Tonsil/Adenoidectomy - Present Medications Home Medications: Ambulatory Orders Medication Instructions Recorded Confirmed Gabapentin 800 mg PO TID 08/25/16 09/19/16 SUMAtriptan succinate [Sumatriptan 1 tab PO DAILY PRN 08/25/16 Succinate] hydrOXYzine PAMOATE [Vistaril] 50 mg PO TID PRN 08/25/16 09/19/16 [place] 600 mg PO TID 08/30/17 OLANZapine [Zyprexa] 10 mg PO 11/18/17 Sucralfate 1 gm PO ACHS #120 tablet 11/18/17 raNITIdine [Zantac] 150 mg PO BID #60 tablet 11/18/17 Phenazopyridine HCl [Pyridium] 200 mg PO TID PRN #6 tablet 09/17/18 Azithromycin [Zithromax] 250 mg PO DAILY #6 tablet 09/29/18 Fluconazole [Diflucan] 150 mg PO DAILY #14 tablet 09/29/18 Lorazepam [Ativan] 1 mg PO Q6HR PRN #14 tablet 09/29/18 - Allergies Allergies/Adverse Reactions: Allergies Allergy/AdvReac Type Severity Reaction Status Date / Time Penicillins AdvReac Unknown Rash Verified 09/29/18 12:59 Sulfa (Sulfonamide AdvReac Unknown Rash Verified 09/29/18 12:59 Antibiotics) steroids Allergy Hallucinati Uncoded 09/29/18 12:59 ons - Social History Does the pt smoke?: Yes Smoking Status: Current every day smoker Does the pt drink ETOH?: No Does the pt have substance abuse?: No - Immunizations Immunizations are current?: Yes - POLST Patient has POLST: No PD ED PE NORMAL - Vitals Vital signs reviewed: Yes (tachy, and hypertensive ) - General General: Alert and oriented X 3, Well developed/nourished - HEENT HEENT: Atraumatic, PERRL, EOMI, Other (both TM's are acutely inflamed with distortion of the landmarks. The tongue is with a white discharge consistent with thrush. ) - Neck Neck: Supple, no meningeal sign, No bony TTP - Cardiac Cardiac: No murmur, Other (tachy to 110) - Respiratory Respiratory: No respiratory distress, Clear bilaterally - Abdomen Abdomen: Soft, Non tender - Back Back: No CVA TTP, No spinal TTP - Derm Derm: Normal color, Warm and dry, No rash - Extremities Extremities: No deformity, No edema - Neuro Neuro: Alert and oriented X 3, project construction manager 2-12 intact, No motor deficit, No sensory deficit, Normal speech Eye Opening: Spontaneous Motor: Obeys Commands Verbal: Oriented GCS Score: 15 - Psych Psych: Normal mood, Normal affect Results - Vitals Vitals: Vital Signs - 24 hr 09/29/18 12:54 Temperature 36.6 C Heart Rate 112 H Respiratory 14 Rate Blood Pressure 136/92 H O2 Saturation 99 Oxygen O2 Source Room air - Labs Labs: Laboratory Tests 09/29/18 09/29/18 09/29/18 13:29 13:29 13:45 WBC 9.6 RBC 4.36 Hgb 13.1 Hct 38.4 MCV 88.0 MCH 30.0 MCHC 34.1 RDW 13.3 Plt Count 242 MPV 9.6 Neut # (Auto) 7.4 H Lymph # (Auto) 1.6 [place] # (Auto) 0.4 Eos # (Auto) 0.1 Baso # (Auto) 0.1 Absolute Nucleated RBC 0.00 Nucleated RBC % 0.0 Sodium 137 Potassium 3.5 Chloride 104 Carbon Dioxide 21 Anion Gap 12.0 BUN 8 Creatinine 0.8 Estimated GFR (MDRD) 82 L Glucose 89 Calcium 9.5 Total Bilirubin 1.0 AST 16 ALT 23 Alkaline Phosphatase 93 Total Protein 7.3 Albumin 4.7 Globulin 2.6 Albumin/Globulin Ratio 1.8 Lipase 60 H Urine Color Urine Clarity Urine pH Ur Specific [place] Urine Protein Urine Glucose (UA) Urine Ketones Urine Occult Blood Urine Nitrite Urine Bilirubin Urine Urobilinogen Ur Leukocyte Esterase Ur Microscopic Review Urine Culture Comments Urine HCG, Qual Salicylates < 6.0 Urine Opiates Screen POSITIVE H Ur Oxycodone Screen NEGATIVE Urine Methadone Screen NEGATIVE Ur Propoxyphene Screen NEGATIVE Acetaminophen < 10 L Ur Barbiturates Screen POSITIVE H Ur Tricyclics Screen NEGATIVE Ur Phencyclidine Scrn NEGATIVE Ur Amphetamine Screen NEGATIVE U Methamphetamines Scrn NEGATIVE U Benzodiazepines Scrn NEGATIVE Urine Cocaine Screen NEGATIVE U Cannabinoids Screen POSITIVE H Ethyl Alcohol < 5.0 09/29/18 13:45 WBC RBC Hgb Hct MCV MCH MCHC RDW Plt Count MPV Neut # (Auto) Lymph # (Auto) [place] # (Auto) Eos # (Auto) Baso # (Auto) Absolute Nucleated RBC Nucleated RBC % Sodium Potassium Chloride Carbon Dioxide Anion Gap BUN Creatinine Estimated GFR (MDRD) Glucose Calcium Total Bilirubin AST ALT Alkaline Phosphatase Total Protein Albumin Globulin Albumin/Globulin Ratio Lipase Urine Color YELLOW Urine Clarity CLEAR Urine pH 6.5 Ur Specific [place] 1.010 Urine Protein TRACE Urine Glucose (UA) NEGATIVE Urine Ketones >=80 H Urine Occult Blood TRACE-INTA Urine Nitrite NEGATIVE Urine Bilirubin NEGATIVE Urine Urobilinogen 0.2 (NORMAL) Ur Leukocyte Esterase NEGATIVE Ur Microscopic Review NOT INDICATED Urine Culture Comments NOT INDICATED Urine HCG, Qual NEGATIVE Salicylates Urine Opiates Screen Ur Oxycodone Screen Urine Methadone Screen Ur Propoxyphene Screen Acetaminophen Ur Barbiturates Screen Ur Tricyclics Screen Ur Phencyclidine Scrn Ur Amphetamine Screen U Methamphetamines Scrn U Benzodiazepines Scrn Urine Cocaine Screen U Cannabinoids Screen Ethyl Alcohol Procedures - IVC sono (time) 1400 Bedside IVC sono: IVC measures (cm) (1.51), Euvolemia PD MEDICAL DECISION MAKING - ED course Complexity details: reviewed results, re-evaluated patient, considered differential, d/w patient, d/w family ED course: 33-year-old female with history of depression and anxiety has an increase in her symptoms related to fear failure with a visiting son. She has been into see her counselor she has adjusted her medications and she is readjust her medications and she does not feel any better. She has not been eating as she has taste perversion and on examination she has thrush. She also has bilateral otitis on examination. In the emergency department she is administered dexamethasone for the otitis and Imitrex for a migraine headache. The patient is medically cleared for evaluation by social work. The social work manager is able to contract for safety and she will have an expedited visit to her doctor this week. Departure - Departure Disposition: 01 Home, Self Care Clinical Impression: Suicidal ideation, Thrush, Anxiety Depression Qualifiers: Depression Type: reactive depression Qualified Code(s): F32.9 - Major depressive disorder, single episode, unspecified Otitis media Qualifiers: Otitis media type: suppurative Chronicity: acute Laterality: bilateral Re currence: recurrent Spontaneous tympanic membrane rupture: without spontaneous rupture Qualified Code(s): H66.006 - Acute suppurative otitis media without spontaneous rupture of ear drum, recurrent, bilateral Condition: Stable Instructions: ED Otitis Media Acute Adult, ED Stress React, Thrush Oral Follow-Up: Isma Redman [Primary Care Provider] - Prescriptions: Lorazepam [Ativan] 1 mg PO Q6HR PRN #14 tablet PRN Reason: Anxiety Azithromycin [Zithromax] 250 mg PO DAILY #6 tablet Fluconazole [Diflucan] 150 mg PO DAILY #14 tablet
[2018-09-29 14:03] LABS: CLARITY,URINE CLEAR (CLEAR); HCG UR QUAL NEGATIVE
[2018-09-29 14:03] LABS: ACETAMINOPHEN < 10 ug/mL (10-30); ALBUMIN 4.7 g/dL (3.2-5.5); ALBUMIN/GLOBULIN RATIO 1.8 (1.0-2.2); ALKALINE PHOSPHATASE 93 IU/L (42-121); ALT ALANINE AMINOTRANSFERASE 23 IU/L (10-60); AST ASPARTATE AMINOTRANSFERASE 16 IU/L (10-42); BUN - BLOOD UREA NITROGEN 8 mg/dL (6-20); CALCIUM 9.5 mg/dL (8.5-10.3); CARBON DIOXIDE - CO2 21 mmol/L (21-32); CHLORIDE 104 mmol/L (101-111); CREATININE 0.8 mg/dL (0.4-1.0); GFR - MDRD 82 (>89); GLUCOSE 89 mg/dL (70-100); LIPASE 60 U/L (22-51); SALICYLATE < 6.0 mg/dL; SODIUM 137 mmol/L (135-145); TOTAL PROTEIN 7.3 g/dL (6.7-8.2)
[2018-09-29 14:04] LABS: BILIRUBIN,URINE NEGATIVE (NEGATIVE); ICTOTEST,URINE NEGATIVE
[2018-09-29 14:12] LABS: AMPHETAMINE SCREEN,URINE NEGATIVE (NEGATIVE); BENZODIAZEPINES SCREEN, URINE NEGATIVE (NEGATIVE); COCAINE SCREEN URINE NEGATIVE (NEGATIVE); METHADONE SCREEN, URINE NEGATIVE (NEGATIVE); METHAMPHETAMINES SCREEN, URINE NEGATIVE (NEGATIVE); OPIATE SCREEN, URINE POSITIVE (NEGATIVE); OXYCODONE SCREEN, URINE NEGATIVE (NEGATIVE); PROPOXYPHENE SCREEN, URINE NEGATIVE (NEGATIVE); TRICYCLIC ANTIDEPRESSANT,URINE NEGATIVE (NEGATIVE)
[2018-09-29 16:40] VITALS: BP 124/83
== END 2018-09-29 16:41 | disposition home or self-care (01) ==
LOC: ED 12:52
DX: F32.9 Major depressive disorder, single episode, unspecified (principal); R45.851 Suicidal ideations; F41.9 Anxiety disorder, unspecified; F25.9 Schizoaffective disorder, unspecified; B37.0 Candidal stomatitis; H66.006 Acute suppurative otitis media without spontaneous rupture of ear drum, recurrent, bilateral; G43.909 Migraine, unspecified, not intractable, without status migrainosus; I10 Essential (primary) hypertension; F17.200 Nicotine dependence, unspecified, uncomplicated
CPT/HCPCS: 36415; 80053; 80306; 80307; 80320; 80329; 81003; 81025; 83690; 85025; 99283; 99284; A9270; 81001; 87086

== ENCOUNTER 2018-10-01 15:04 | Outpatient (CLI) | payer MEDICAID | END 2018-10-01 15:05 | disposition critical access hospital (66) | LOC: EMS 15:04 | PROVIDERS: ATTEND Surgery | DX: R45.851 Suicidal ideations (principal) | CPT/HCPCS: A0425; A0429; A0999 ==

== ENCOUNTER 2018-10-01 15:21 | Emergency (ER) | payer MEDICAID ==
--- NOTE | 2018-10-01 15:50 | ED Physician Documentation ---
PD HPI MHE - Stated complaint Stated Complaint: SI - Chief complaint Chief Complaint: MHE - History obtained from History obtained from: Patient - History of Present Illness Primary symptom: Suicidal ideation, Self harm - cut, Depression. No: Suicide attempt, Self harm - other, Homicidal ideation Timing - onset: Unknown Contributing factors: Other (unknown) Similar symptoms before: Diagnosis (depression, anxiety) - Treatment prior to arrival Treatment prior to arrival: none - Additional information Additional information: Pt reports she feels like she is overmedicated and she is frustrated because things taste bad which has caused her to lose weight. She thought about overdosing on all of her medications today but did not. Review of Systems Constitutional: reports: Reviewed and negative Throat: reports: Reviewed and negative Cardiac: reports: Reviewed and negative Respiratory: reports: Reviewed and negative Skin: reports: Reviewed and negative Musculoskeletal: reports: Reviewed and negative Neurologic: reports: Reviewed and negative Psychiatric: reports: Depressed, Suicidal, Anxiety. denies: Hallucinations, Delusions PD PAST MEDICAL HISTORY - Past Medical History Past Medical History: Yes Cardiovascular: Hypertension Respiratory: None Neuro: Headaches Endocrine/Autoimmune: None GI: Chronic constipation HEALTH SYSTEMS ANALYST: None : None HEENT: None Psych: Depression, Anxiety, Bipolar disorder, Schizophrenia, Other Musculoskeletal: Chronic back pain Derm: None - Past Surgical History Past Surgical History: Yes /HEALTH SYSTEMS ANALYST: Tubal ligation HEENT: Tonsil/Adenoidectomy - Present Medications Home Medications: Ambulatory Orders Medication Instructions Recorded Confirmed Gabapentin 800 mg PO TID 08/25/16 10/01/18 SUMAtriptan succinate [Sumatriptan 1 tab PO DAILY PRN 08/25/16 10/01/18 Succinate] hydrOXYzine PAMOATE [Vistaril] 50 mg PO TID PRN 08/25/16 10/01/18 [place] 600 mg PO TID 08/30/17 10/01/18 OLANZapine [Zyprexa] 10 mg PO DAILY PM 11/18/17 10/01/18 raNITIdine [Zantac] 150 mg PO BID #60 tablet 11/18/17 10/01/18 Azithromycin [Zithromax] 250 mg PO DAILY #6 tablet 09/29/18 10/01/18 Lorazepam [Ativan] 1 mg PO Q6HR PRN #14 tablet 09/29/18 10/01/18 - Allergies Allergies/Adverse Reactions: Allergies Allergy/AdvReac Type Severity Reaction Status Date / Time Penicillins AdvReac Unknown Rash Verified 10/01/18 15:33 Sulfa (Sulfonamide AdvReac Unknown Rash Verified 10/01/18 15:33 Antibiotics) steroids Allergy Hallucinati Uncoded 10/01/18 15:33 ons - Social History Does the pt smoke?: Yes Smoking Status: Current every day smoker Does the pt drink ETOH?: No Does the pt have substance abuse?: No - Immunizations Immunizations are current?: Yes - POLST Patient has POLST: No PD ED PE NORMAL - Vitals Vital signs reviewed: Yes - General General: Alert and oriented X 3, No acute distress, Well developed/nourished - HEENT HEENT: Atraumatic, PERRL - Neck Neck: Supple, no meningeal sign, No JVD - Cardiac Cardiac: RRR - Respiratory Respiratory: No respiratory distress - Abdomen Abdomen: Soft, Non tender, Non distended - Female Female : Deferred - Derm Derm: Normal color, Warm and dry, No rash - Extremities Extremities: No deformity, Normal ROM s pain - Neuro Neuro: Alert and oriented X 3, No motor deficit, Other (normal gait ) Eye Opening: Spontaneous Motor: Obeys Commands Verbal: Oriented GCS Score: 15 PD ED PE EXPANDED - Psych Psych: Depressed, Suicidal, Poor eye contact, Other (flat affect) Results - Vitals Vitals: Vital Signs - 24 hr 10/01/18 10/01/18 15:27 18:47 Temperature 38.1 C H 36.8 C Heart Rate 102 H 90 Respiratory 14 16 Rate Blood Pressure 152/95 H 118/74 O2 Saturation 99 95 Oxygen O2 Source Room air - Labs Labs: Laboratory Tests 10/01/18 10/01/18 10/01/18 15:50 15:50 16:31 WBC 10.9 H RBC 4.37 Hgb 13.0 Hct 38.3 MCV 87.6 MCH 29.8 MCHC 34.0 RDW 13.3 Plt Count 237 MPV 9.3 Neut # (Auto) 7.5 H Lymph # (Auto) 2.7 [place] # (Auto) 0.5 Eos # (Auto) 0.1 Baso # (Auto) 0.0 Absolute Nucleated RBC 0.01 Nucleated RBC % 0.1 Sodium Potassium Chloride Carbon Dioxide Anion Gap BUN Creatinine Estimated GFR (MDRD) Glucose Calcium Total Bilirubin AST ALT Alkaline Phosphatase Total Protein Albumin Globulin Albumin/Globulin Ratio Lipase Urine Color YELLOW Urine Clarity CLEAR Urine pH 6.5 Ur Specific [place] 1.010 Urine Protein TRACE Urine Glucose (UA) NEGATIVE Urine Ketones 15 H Urine Occult Blood NEGATIVE Urine Nitrite NEGATIVE Urine Bilirubin NEGATIVE Urine Urobilinogen 0.2 (NORMAL) Ur Leukocyte Esterase NEGATIVE Ur Microscopic Review NOT INDICATED Urine Culture Comments NOT INDICATED Urine HCG, Qual NEGATIVE Last Dose Date Last Dose Time Urine Opiates Screen POSITIVE H Ur Oxycodone Screen NEGATIVE Urine Methadone Screen NEGATIVE Ur Propoxyphene Screen NEGATIVE Ur Barbiturates Screen POSITIVE H Ur Tricyclics Screen NEGATIVE Ur Phencyclidine Scrn NEGATIVE Ur Amphetamine Screen NEGATIVE U Methamphetamines Scrn NEGATIVE U Benzodiazepines Scrn POSITIVE H [place] Urine Cocaine Screen NEGATIVE U Cannabinoids Screen POSITIVE H Ethyl Alcohol 10/01/18 10/01/18 16:31 16:31 WBC RBC Hgb Hct MCV MCH MCHC RDW Plt Count MPV Neut # (Auto) Lymph # (Auto) [place] # (Auto) Eos # (Auto) Baso # (Auto) Absolute Nucleated RBC Nucleated RBC % Sodium 137 Potassium 3.2 L Chloride 104 Carbon Dioxide 21 Anion Gap 12.0 BUN 18 Creatinine 1.0 Estimated GFR (MDRD) 63 L Glucose 92 Calcium 9.6 Total Bilirubin 0.7 AST 16 ALT 25 Alkaline Phosphatase 92 Total Protein 7.3 Albumin 4.6 Globulin 2.7 Albumin/Globulin Ratio 1.7 Lipase 105 H Urine Color Urine Clarity Urine pH Ur Specific [place] Urine Protein Urine Glucose (UA) Urine Ketones Urine Occult Blood Urine Nitrite Urine Bilirubin Urine Urobilinogen Ur Leukocyte Esterase Ur Microscopic Review Urine Culture Comments Urine HCG, Qual Last Dose Date Not Reportable Last Dose Time Not Reportable Urine Opiates Screen Ur Oxycodone Screen Urine Methadone Screen Ur Propoxyphene Screen Ur Barbiturates Screen Ur Tricyclics Screen Ur Phencyclidine Scrn Ur Amphetamine Screen U Methamphetamines Scrn U Benzodiazepines Scrn [place] 3.20 H* Urine Cocaine Screen U Cannabinoids Screen Ethyl Alcohol < 5.0 PD MEDICAL DECISION MAKING - ED course Complexity details: re-evaluated patient, considered differential, d/w patient, d/w family ED course: ddx- suicidal ideation, psychiatric disorder, malingering, disordered thinking, depression 33 y/o F with hx of psychiatric illness w/ acute worsening per her friend who called 911 as pt reported thoughts of taking her meds today. Initial complaint to me today was that her taste buds are weird. However then reported SI. Has evidence of self cutting and old wounds. No acute injury. Her lithium level is very high though she has no exam finding of acute lithium toxicity. She is otherwise medically stable and awaiting telepsych eval Dr. Mosher will be taking over pt's care.
[2018-10-01 16:07] LABS: MUDS CUTOFF CONCENTRATIONS CUTOFF CONC BELOW:
[2018-10-01 16:10] LABS: GLUCOSE, URINE (UA) NEGATIVE (NEGATIVE); KETONES,URINE (UA) 15 mg/dL (NEGATIVE); LEUKOCYTE ESTERASE, URINE NEGATIVE (NEGATIVE); NITRITE,URINE NEGATIVE (NEGATIVE); OCCULT BLOOD,URINE NEGATIVE (NEGATIVE); PH,URINE 6.5 PH (5.0-7.5); PROTEIN,URINE TRACE mg/dL (NEGATIVE); UROBILINOGEN,URINE 0.2 (NORMAL) E.U./dL (NORMAL)
[2018-10-01 16:12] LABS: BILIRUBIN,URINE NEGATIVE (NEGATIVE); CLARITY,URINE CLEAR (CLEAR); HCG UR QUAL NEGATIVE; ICTOTEST,URINE NEGATIVE
[2018-10-01 16:20] LABS: COCAINE SCREEN URINE NEGATIVE (NEGATIVE); METHAMPHETAMINES SCREEN, URINE NEGATIVE (NEGATIVE); OPIATE SCREEN, URINE POSITIVE (NEGATIVE)
[2018-10-01 16:21] LABS: AMPHETAMINE SCREEN,URINE NEGATIVE (NEGATIVE); BENZODIAZEPINES SCREEN, URINE POSITIVE (NEGATIVE); METHADONE SCREEN, URINE NEGATIVE (NEGATIVE); OXYCODONE SCREEN, URINE NEGATIVE (NEGATIVE); PROPOXYPHENE SCREEN, URINE NEGATIVE (NEGATIVE); TRICYCLIC ANTIDEPRESSANT,URINE NEGATIVE (NEGATIVE)
[2018-10-01 16:36] LABS: BASOPHILS % (AUTO) 0.4 %; EOSINOPHILS # (AUTO) 0.1 10^3/uL (0.0-0.7); EOSINOPHILS % (AUTO) 1.1 %; LYMPHOCYTES # (AUTO) 2.7 10^3/uL (1.5-3.5); LYMPHOCYTES % (AUTO) 24.8 %; MEAN CORPUSCULAR HEMOGLOBIN 29.8 pg (27.0-31.0); MEAN CORPUSCULAR VOLUME 87.6 fL (81.0-99.0); MEAN PLATELET VOLUME 9.3 fL (7.9-10.8); MONOCYTES # (AUTO) 0.5 10^3/uL (0.0-1.0); MONOCYTES % (AUTO) 4.8 %; NEUTROPHILS # (AUTO) 7.5 10^3/uL (1.5-6.6); NEUTROPHILS % (AUTO) 68.9 %; PLT - PLATELET COUNT 237 10^3/uL (130-450); RED BLOOD COUNT 4.37 10^6/uL (4.20-5.40); RED CELL DISTRIBUTION WIDTH 13.3 % (12.0-15.0); WHITE BLOOD COUNT 10.9 x10^3/uL (4.8-10.8)
[2018-10-01 16:48] LABS: ALBUMIN 4.6 g/dL (3.2-5.5); ALBUMIN/GLOBULIN RATIO 1.7 (1.0-2.2); ALKALINE PHOSPHATASE 92 IU/L (42-121); ALT ALANINE AMINOTRANSFERASE 25 IU/L (10-60); AST ASPARTATE AMINOTRANSFERASE 16 IU/L (10-42); BILIRUBIN,TOTAL 0.7 mg/dL (0.2-1.0); BUN - BLOOD UREA NITROGEN 18 mg/dL (6-20); CALCIUM 9.6 mg/dL (8.5-10.3); CARBON DIOXIDE - CO2 21 mmol/L (21-32); CHLORIDE 104 mmol/L (101-111); GFR - MDRD 63 (>89); GLUCOSE 92 mg/dL (70-100); LIPASE 105 U/L (22-51); SODIUM 137 mmol/L (135-145); TOTAL PROTEIN 7.3 g/dL (6.7-8.2)
[2018-10-01] MEDS ORDERED: POTASSIUM CHLORIDE 20 MEQ TABLET PO STA (19:18)
[2018-10-01] MEDS ORDERED: SODIUM CHLORIDE 0.9% 1,000 ML IV ONE ×2 (22:57→23:10)
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
--- NOTE | 2018-10-02 04:16 | ED Physician Documentation ---
ED Addendum - Addendum Addendum: 10/02/18 04:15 Patient was seen by the tele-psychiatrist she is recommended admission. Her lithium level was elevated and she was given a liter of fluids her repeat lithium level was 2.9. Her lithium will be held for the current time frame. The patient is agreeable to stay for psychiatric admission and will have the social media senior associate see her in the morning for placement. 10/02/18 06:03 EKG: NSR, rate of 85, poor r-wave prgression, borderline prolonged qt, no acute ischemic changes
[2018-10-02 11:57] LABS: CALCIUM 9.4 mg/dL (8.5-10.3); CREATININE 0.6 mg/dL (0.4-1.0)
[2018-10-02 12:19] LABS: MUDS CUTOFF CONCENTRATIONS CUTOFF CONC BELOW:
[2018-10-02 12:21] LABS: LITHIUM 2.59 mmol/L
[2018-10-02 12:33] LABS: AMPHETAMINE SCREEN,URINE NEGATIVE (NEGATIVE); BENZODIAZEPINES SCREEN, URINE POSITIVE (NEGATIVE); COCAINE SCREEN URINE NEGATIVE (NEGATIVE); METHADONE SCREEN, URINE NEGATIVE (NEGATIVE); METHAMPHETAMINES SCREEN, URINE NEGATIVE (NEGATIVE); OPIATE SCREEN, URINE POSITIVE (NEGATIVE); OXYCODONE SCREEN, URINE NEGATIVE (NEGATIVE); PROPOXYPHENE SCREEN, URINE NEGATIVE (NEGATIVE); TRICYCLIC ANTIDEPRESSANT,URINE NEGATIVE (NEGATIVE)
[2018-10-02 14:54] VITALS: BP 121/70
== END 2018-10-02 14:56 | disposition home or self-care (01) ==
LOC: EDUNIT# → ED 15:21
DX: R45.851 Suicidal ideations (principal); R43.9 Unspecified disturbances of smell and taste; R63.0 Anorexia; R63.4 Abnormal weight loss; T50.995A Adverse effect of other drugs, medicaments and biological substances, initial encounter; F31.9 Bipolar disorder, unspecified; F20.9 Schizophrenia, unspecified; F43.10 Post-traumatic stress disorder, unspecified; F17.200 Nicotine dependence, unspecified, uncomplicated; Z91.5 Personal history of self-harm; Z86.79 Personal history of other diseases of the circulatory system; Z62.810 Personal history of physical and sexual abuse in childhood; Z79.899 Other long term (current) drug therapy
CPT/HCPCS: 36415; 80048; 80053; 80178; 80306; 80320; 81003; 81025; 83690; 85025; 93005; 99284; A9270; G0426; Q3014; 81001; 87086

== ENCOUNTER 2018-11-03 08:00 | Outpatient (CLI) | payer MEDICAID ==
[2018-11-03 18:37] LABS: BASOPHILS % (AUTO) 0.5 %; EOSINOPHILS # (AUTO) 0.1 10^3/uL (0.0-0.7); EOSINOPHILS % (AUTO) 1.1 %; HGB - HEMOGLOBIN 13.6 g/dL (12.0-16.0); LYMPHOCYTES # (AUTO) 1.9 10^3/uL (1.5-3.5); LYMPHOCYTES % (AUTO) 31.3 %; MEAN CORPUSCULAR HEMOGLOBIN 29.6 pg (27.0-31.0); MEAN CORPUSCULAR HGB CONC 31.9 g/dL (32.0-36.0); MEAN PLATELET VOLUME 12.1 fL (7.9-10.8); MONOCYTES # (AUTO) 0.3 10^3/uL (0.0-1.0); MONOCYTES % (AUTO) 5.5 %; NEUTROPHILS # (AUTO) 3.8 10^3/uL (1.5-6.6); NEUTROPHILS % (AUTO) 61.4 %; PLT - PLATELET COUNT 221 10^3/uL (130-450); RED BLOOD COUNT 4.59 10^6/uL (4.20-5.40); RED CELL DISTRIBUTION WIDTH 14.2 % (12.0-15.0); WHITE BLOOD COUNT 6.2 x10^3/uL (4.8-10.8)
[2018-11-03 19:25] LABS: ALBUMIN/GLOBULIN RATIO 1.4 (1.0-2.2); ALKALINE PHOSPHATASE 62 IU/L (42-121); ALT ALANINE AMINOTRANSFERASE 44 IU/L (10-60); AST ASPARTATE AMINOTRANSFERASE 36 IU/L (10-42); BILIRUBIN,TOTAL 0.3 mg/dL (0.2-1.0); BUN - BLOOD UREA NITROGEN 6 mg/dL (6-20); CALCIUM 9.3 mg/dL (8.5-10.3); CARBON DIOXIDE - CO2 20 mmol/L (21-32); CHLORIDE 111 mmol/L (101-111); CHOL/HDL RATIO 4.8 (<4.4); CHOLESTEROL 225 mg/dL; CREATININE 0.6 mg/dL (0.4-1.0); GFR - MDRD 114 (>89); GLUCOSE 109 mg/dL (70-100); HDL CHOLESTEROL 47 mg/dL; LDL CHOLESTEROL,CALCULATED 108 mg/dL; LDL/HDL RATIO 2.3 (<4.4); SODIUM 139 mmol/L (135-145); TOTAL PROTEIN 6.8 g/dL (6.7-8.2); VLDL CHOLESTEROL 70 mg/dL
[2018-11-03 19:31] LABS: LITHIUM < 0.05 mmol/L
[2018-11-03 19:52] LABS: HEMOGLOBIN A1C 0.49 g/dL; HEMOGLOBIN A1C % 5.4 % (4.6-6.2)
== END 2018-11-03 23:59 | disposition home or self-care (01) ==
LOC: LAB.N 08:00
PROVIDERS: ATTEND Psychiatry & Neurology Psychiatry
DX: F43.10 Post-traumatic stress disorder, unspecified (principal)
CPT/HCPCS: 36415; 80053; 80061; 80178; 83036; 83721; 85025

== ENCOUNTER 2019-02-12 08:14 | Outpatient (CLI) | payer MEDICAID ==
[2019-02-12 12:47] LABS: BASOPHILS % (AUTO) 0.6 %; EOSINOPHILS # (AUTO) 0.2 10^3/uL (0.0-0.7); EOSINOPHILS % (AUTO) 2.4 %; HGB - HEMOGLOBIN 13.9 g/dL (12.0-16.0); LYMPHOCYTES # (AUTO) 2.4 10^3/uL (1.5-3.5); LYMPHOCYTES % (AUTO) 37.5 %; MEAN CORPUSCULAR HGB CONC 33.3 g/dL (32.0-36.0); MEAN CORPUSCULAR VOLUME 90.1 fL (81.0-99.0); MONOCYTES # (AUTO) 0.3 10^3/uL (0.0-1.0); MONOCYTES % (AUTO) 4.9 %; NEUTROPHILS # (AUTO) 3.4 10^3/uL (1.5-6.6); NEUTROPHILS % (AUTO) 54.1 %; PLT - PLATELET COUNT 252 10^3/uL (130-450); RED BLOOD COUNT 4.64 10^6/uL (4.20-5.40); RED CELL DISTRIBUTION WIDTH 12.9 % (12.0-15.0); WHITE BLOOD COUNT 6.3 x10^3/uL (4.8-10.8)
[2019-02-12 12:51] LABS: ALBUMIN 4.2 g/dL (3.2-5.5); ALBUMIN/GLOBULIN RATIO 1.5 (1.0-2.2); ALKALINE PHOSPHATASE 71 IU/L (42-121); ALT ALANINE AMINOTRANSFERASE 20 IU/L (10-60); AST ASPARTATE AMINOTRANSFERASE 16 IU/L (10-42); BILIRUBIN,TOTAL 0.5 mg/dL (0.2-1.0); BUN - BLOOD UREA NITROGEN 14 mg/dL (6-20); CALCIUM 9.1 mg/dL (8.5-10.3); CARBON DIOXIDE - CO2 23 mmol/L (21-32); CHLORIDE 108 mmol/L (101-111); CHOL/HDL RATIO 4.4 (<4.4); CHOLESTEROL 190 mg/dL; CREATININE 0.8 mg/dL (0.4-1.0); GFR - MDRD 82 (>89); GLUCOSE 114 mg/dL (70-100); GLUCOSE,FASTING 114 mg/dL (70-100); HDL CHOLESTEROL 43 mg/dL; LDL CHOLESTEROL,CALCULATED 108 mg/dL; LDL/HDL RATIO 2.5 (<4.4); SODIUM 140 mmol/L (135-145); VLDL CHOLESTEROL 39 mg/dL
[2019-02-12 12:53] LABS: BILIRUBIN,DIRECT < 0.1 mg/dL (0.1-0.5)
[2019-02-12 12:59] LABS: T4 (THYROXINE) 6.82 ug/dL (6.09-12.23)
[2019-02-12 13:00] LABS: THYROID STIMULATING HORMONE 0.59 uIU/mL (0.34-5.60)
[2019-02-12 13:03] LABS: HB2 TOTAL 14.6 g/dL; HEMOGLOBIN A1C 0.54 g/dL; HEMOGLOBIN A1C % 5.5 % (4.6-6.2)
[2019-02-12 13:07] LABS: TOTAL T3 1.19 ng/mL (0.87-1.78)
[2019-02-12 13:13] LABS: FOLATE 15.23 ng/mL (5.90 - >24.8)
== END 2019-02-12 08:15 | disposition home or self-care (01) ==
LOC: LAB.N 08:14
PROVIDERS: ATTEND Psychiatry & Neurology Psychiatry
DX: Z79.899 Other long term (current) drug therapy (principal); F43.10 Post-traumatic stress disorder, unspecified
CPT/HCPCS: 36415; 80053; 80061; 81599; 82248; 82306; 82607; 82746; 82947; 83036; 83721; 84436; 84442; 84443; 84480; 85025

== ENCOUNTER 2019-03-06 11:56 | Emergency (ER) | payer MEDICAID ==
[2019-03-06 13:21] LABS: BASOPHILS % (AUTO) 0.5 %; EOSINOPHILS # (AUTO) 0.1 10^3/uL (0.0-0.7); EOSINOPHILS % (AUTO) 0.9 %; HGB - HEMOGLOBIN 13.2 g/dL (12.0-16.0); LYMPHOCYTES # (AUTO) 2.6 10^3/uL (1.5-3.5); LYMPHOCYTES % (AUTO) 30.5 %; MEAN CORPUSCULAR HEMOGLOBIN 29.9 pg (27.0-31.0); MEAN CORPUSCULAR HGB CONC 33.7 g/dL (32.0-36.0); MEAN CORPUSCULAR VOLUME 88.9 fL (81.0-99.0); MEAN PLATELET VOLUME 10.7 fL (7.9-10.8); MONOCYTES # (AUTO) 0.3 10^3/uL (0.0-1.0); NEUTROPHILS # (AUTO) 5.4 10^3/uL (1.5-6.6); NEUTROPHILS % (AUTO) 63.7 %; PLT - PLATELET COUNT 224 10^3/uL (130-450); RED BLOOD COUNT 4.41 10^6/uL (4.20-5.40); RED CELL DISTRIBUTION WIDTH 12.9 % (12.0-15.0); WHITE BLOOD COUNT 8.5 x10^3/uL (4.8-10.8)
[2019-03-06] MEDS ORDERED: HYDROmorphone 1 MG/ML CARPUJECT IVP STA (13:35)
[2019-03-06] MEDS ORDERED: ONDANSETRON 4 MG/2 ML VIAL IVP STA (13:35)
[2019-03-06 13:36] LABS: ALBUMIN 4.2 g/dL (3.2-5.5); ALBUMIN/GLOBULIN RATIO 1.6 (1.0-2.2); BILIRUBIN,TOTAL 0.6 mg/dL (0.2-1.0); CALCIUM 8.7 mg/dL (8.5-10.3); CREATININE 0.6 mg/dL (0.4-1.0); TOTAL PROTEIN 6.8 g/dL (6.7-8.2)
[2019-03-06 13:46] LABS: LITHIUM < 0.05 mmol/L
[2019-03-06 15:18] LABS: BILIRUBIN,URINE NEGATIVE (NEGATIVE); GLUCOSE, URINE (UA) NEGATIVE (NEGATIVE); KETONES,URINE (UA) NEGATIVE (NEGATIVE); LEUKOCYTE ESTERASE, URINE NEGATIVE (NEGATIVE); NITRITE,URINE NEGATIVE (NEGATIVE); OCCULT BLOOD,URINE NEGATIVE (NEGATIVE); PROTEIN,URINE NEGATIVE (NEGATIVE); UROBILINOGEN,URINE 0.2 (NORMAL) E.U./dL (NORMAL)
[2019-03-06 15:20] LABS: CLARITY,URINE CLEAR (CLEAR); HCG UR QUAL NEGATIVE
--- NOTE | 2019-03-06 16:13 | Ultrasound Report ---
Reason: RUQ pain Procedure Date: 03/06/2019 Accession Number: [id number] / [id number] Procedure: US - Abdomen Limited CPT Code: Final Report FULL RESULT: EXAM: ABDOMEN ULTRASOUND LIMITED, RUQ EXAM DATE: 03/06/2019 03:48 PM. CLINICAL HISTORY: RUQ pain. COMPARISON: ABDOMEN LIMITED 02/27/2016 5:37 PM. TECHNIQUE: Real-time scanning was performed with static images obtained. FINDINGS: Liver: Normal in size, but diffuse increase in echogenicity. No focal lesions. 16.7 cm. Main portal vein flow: Hepatopetal. Gallbladder: Normal. No stones, wall thickening, or sonographic Azul's sign. Wall measures 2.6 mm in thickness. Biliary System: CBD measures 6 mm. No intrahepatic or extrahepatic ductal dilatation. Other: Limited images of the pancreas are unremarkable. The right kidney is normal in appearance, measuring 10.5 cm in length. IMPRESSION: Fatty liver. Otherwise normal exam. No cholelithiasis. RADIA
--- NOTE | 2019-03-06 16:19 | ED Physician Documentation ---
PD HPI ABD PAIN - Stated complaint Stated Complaint: ABD PX, FEVER, NAUSEA - Chief complaint Chief Complaint: Abd Pain - History obtained from History obtained from: Patient - History of Present Illness Timing - onset: Other (For the last few days she is had waxing and waning right upper quadrant pain radiating to the back associated with nausea but no vomiting and a subjective fever. It does worsen after eating. She denies chest pain or trouble breathing. 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 : None HEENT: None Psych: Depression, Anxiety, Bipolar disorder, Schizophrenia, Other Musculoskeletal: Chronic back pain Derm: None - Past Surgical History Past Surgical History: Yes /DERMATOLOGY SALES REPRESENTATIVE: Tubal ligation HEENT: Tonsil/Adenoidectomy - Present Medications Home Medications: Ambulatory Orders Medication Instructions Recorded Confirmed Gabapentin 800 mg PO TID 08/25/16 10/01/18 SUMAtriptan succinate [Sumatriptan 1 tab PO DAILY PRN 08/25/16 10/01/18 Succinate] hydrOXYzine PAMOATE [Vistaril] 50 mg PO TID PRN 08/25/16 10/01/18 [place] 600 mg PO TID 08/30/17 10/01/18 OLANZapine [Zyprexa] 10 mg PO DAILY PM 11/18/17 10/01/18 raNITIdine [Zantac] 150 mg PO BID #60 tablet 11/18/17 10/01/18 Azithromycin [Zithromax] 250 mg PO DAILY #6 tablet 09/29/18 10/01/18 Lorazepam [Ativan] 1 mg PO Q6HR PRN #14 tablet 09/29/18 10/01/18 Hydrocodone/Acetaminophen 1 - 2 each PO Q6H PRN #10 tablet 03/06/19 [Hydrocodon-Acetaminophen 5-325] Ondansetron Odt [Zofran] 4 mg TL Q6H PRN #10 tablet 03/06/19 - Allergies Allergies/Adverse Reactions: Allergies Allergy/AdvReac Type Severity Reaction Status Date / Time Penicillins AdvReac Unknown Rash Verified 03/06/19 12:18 Sulfa (Sulfonamide AdvReac Unknown Rash Verified 03/06/19 12:18 Antibiotics) steroids Allergy Hallucinati Uncoded 03/06/19 12:18 ons - Social History Does the pt smoke?: Yes Smoking Status: Current every day smoker Does the pt drink ETOH?: No Does the pt have substance abuse?: No - Immunizations Immunizations are current?: Yes - POLST Patient has POLST: No PD ED PE NORMAL - Vitals Vital signs reviewed: Yes - General General: Alert and oriented X 3, No acute distress - HEENT HEENT: PERRL, EOMI - Neck Neck: Supple, no meningeal sign, No bony TTP - Cardiac Cardiac: RRR, No murmur - Respiratory Respiratory: No respiratory distress, Clear bilaterally - Abdomen Abdomen: Other (Minimal right upper quadrant tenderness with equivocal Azul sign, no other abdominal tenderness, softMinimal right upper quadrant tenderness with equivocal Azul sign, no other abdominal tenderness, soft) - Back Back: No CVA TTP, No spinal TTP - Derm Derm: Normal color - Extremities Extremities: No edema, No calf tenderness / cord - Neuro Neuro: Alert and oriented X 3, Normal speech Results - Vitals Vitals: Vital Signs - 24 hr 03/06/19 12:18 Temperature 36.8 C Heart Rate 100 Respiratory 18 Rate Blood Pressure 134/84 H O2 Saturation 99 Oxygen O2 Source Room air - Labs Labs: Laboratory Tests 03/06/19 03/06/19 03/06/19 12:54 12:54 12:54 WBC 8.5 RBC 4.41 Hgb 13.2 Hct 39.2 MCV 88.9 MCH 29.9 MCHC 33.7 RDW 12.9 Plt Count 224 MPV 10.7 Neut # (Auto) 5.4 Lymph # (Auto) 2.6 [place] # (Auto) 0.3 Eos # (Auto) 0.1 Baso # (Auto) 0.0 Absolute Nucleated RBC 0.00 Nucleated RBC % 0.0 Sodium 139 Potassium 3.8 Chloride 105 Carbon Dioxide 25 Anion Gap 9.0 BUN 12 Creatinine 0.6 Estimated GFR (MDRD) 114 Glucose 90 Calcium 8.7 Total Bilirubin 0.6 AST 18 ALT 26 Alkaline Phosphatase 67 Total Protein 6.8 Albumin 4.2 Globulin 2.6 Albumin/Globulin Ratio 1.6 Lipase 31 Urine Color Urine Clarity Urine pH Ur Specific [place] Urine Protein Urine Glucose (UA) Urine Ketones Urine Occult Blood Urine Nitrite Urine Bilirubin Urine Urobilinogen Ur Leukocyte Esterase Ur Microscopic Review Urine Culture Comments Urine HCG, Qual [place] < 0.05 03/06/19 15:12 WBC RBC Hgb Hct MCV MCH MCHC RDW Plt Count MPV Neut # (Auto) Lymph # (Auto) [place] # (Auto) Eos # (Auto) Baso # (Auto) Absolute Nucleated RBC Nucleated RBC % Sodium Potassium Chloride Carbon Dioxide Anion Gap BUN Creatinine Estimated GFR (MDRD) Glucose Calcium Total Bilirubin AST ALT Alkaline Phosphatase Total Protein Albumin Globulin Albumin/Globulin Ratio Lipase Urine Color YELLOW Urine Clarity CLEAR Urine pH 6.0 Ur Specific [place] 1.020 Urine Protein NEGATIVE Urine Glucose (UA) NEGATIVE Urine Ketones NEGATIVE Urine Occult Blood NEGATIVE Urine Nitrite NEGATIVE Urine Bilirubin NEGATIVE Urine Urobilinogen 0.2 (NORMAL) Ur Leukocyte Esterase NEGATIVE Ur Microscopic Review NOT INDICATED Urine Culture Comments NOT INDICATED Urine HCG, Qual NEGATIVE [place] PD MEDICAL DECISION MAKING - ED course ED course: 33-year-old woman with nonspecific abdominal pain, somewhat consistent with a biliary etiology but her ultrasound was negative except for a fatty liver. Departure - Departure Disposition: 01 Home, Self Care Clinical Impression: Abdominal pain Qualifiers: Abdominal location: right upper quadrant Qualified Code(s): R10.11 - Right upper quadrant pain Condition: Good Record reviewed to determine appropriate education?: Yes Instructions: ED Abdominal Pain Unkn Cause Prescriptions: Hydrocodone/Acetaminophen [Hydrocodon-Acetaminophen 5-325] 1 - 2 each PO Q6H PRN #10 tablet PRN Reason: pain Ondansetron Odt [Zofran] 4 mg TL Q6H PRN #10 tablet PRN Reason: Nausea / Vomiting Comments: Your ultrasound does not show gallstones, you do have a fatty liver which is a chronic phenomenon. Follow-up with your doctor next available appt. Return for new or worsening symptoms.
[2019-03-06 16:56] VITALS: BP 134/90
== END 2019-03-06 16:57 | disposition home or self-care (01) ==
LOC: ED 11:56
DX: R10.11 Right upper quadrant pain (principal); K76.0 Fatty (change of) liver, not elsewhere classified; I10 Essential (primary) hypertension; F17.200 Nicotine dependence, unspecified, uncomplicated
CPT/HCPCS: 36415; 76705; 80053; 80178; 81003; 81025; 83690; 85025; 96374; 99284; J1170; 81001; 87086

== ENCOUNTER 2019-04-17 15:32 | Outpatient (CLI) | payer MEDICAID | END 2019-04-17 15:33 | disposition EMS.NT | LOC: EMS 15:32 | PROVIDERS: ATTEND Surgery | DX: Z03.89 Encounter for observation for other suspected diseases and conditions ruled out (principal) ==

== ENCOUNTER 2021-04-22 17:45 | Outpatient (CLI) | payer MEDICAID | END 2021-04-22 17:46 | disposition critical access hospital (66) | LOC: EMS 17:45 | DX: T24.001A Burn of unspecified degree of unspecified site of right lower limb, except ankle and foot, initial encounter (principal); X11.8XXA Contact with other hot tap-water, initial encounter | CPT/HCPCS: A0425; A0429 ==

== ENCOUNTER 2021-05-15 16:20 | Emergency (ER) | payer MEDICAID ==
[2021-05-15] MEDS ORDERED: KETOROLAC 60 MG/2 ML VIAL IM STA (17:08)
[2021-05-15] MEDS ORDERED: diphenhydrAMINE INJ 50 MG/ML VIAL IM STA (17:08)
[2021-05-15] MEDS ORDERED: PROMETHAZINE 25 MG/1 ML VIAL IM STA (17:09)
--- NOTE | 2021-05-15 17:13 | ED Physician Documentation ---
PD HPI HEADACHE - Stated complaint Stated Complaint: HEAD PX - Chief complaint Chief Complaint: Neuro - History obtained from History obtained from: Patient - History of Present Illness Timing - onset: How many days ago (3) Timing - onset during: Rest Timing - duration: Days (3) Timing - details: Gradual onset Pain level max: 8 Pain level now: 8 Location: Global Quality: Throbbing, Aching Associated symptoms: Nausea. No: Fever, Stiff neck, Vomiting, Weakness, Numbness, Syncope, Seizure Improved by: Rest, Dark room Worsened by: Light, Noise Similar symptoms before: Diagnosis (chronic migraines) - Additional information Additional information: 36-year-old female with a longstanding history of migraines who presents with her usual migraine headache for the past 3 days. She states no relief at home with Nurtec. No recent illnesses. No fever. No trauma. Worse with light and s ound. Nothing makes it better. Gradual onset, throbbing, holoacranial Review of Systems Ten Systems: 10 systems reviewed and negative Constitutional: denies: Fever, Chills Eyes: reports: Photophobia. denies: Loss of vision, Decreased vision Ears: denies: Ear pain Nose: denies: Rhinorrhea / runny nose, Congestion Throat: denies: Sore throat Cardiac: denies: Chest pain / pressure Respiratory: denies: Cough GI: denies: Abdominal Pain, Nausea, Vomiting, Diarrhea Skin: denies: Rash Musculoskeletal: denies: Neck pain, Back pain Neurologic: denies: Seizure, Confused, Head injury, LOC PD PAST MEDICAL HISTORY - Past Medical History Past Medical History: Yes Cardiovascular: Hypertension Respiratory: None Neuro: Headaches Endocrine/Autoimmune: None GI: Chronic constipation HVAC LEAD: None : None HEENT: None Psych: Depression, Anxiety, Bipolar disorder, Schizophrenia, Other Musculoskeletal: Chronic back pain Derm: None - Past Surgical History Past Surgical History: Yes /HVAC LEAD: Tubal ligation HEENT: Tonsil/Adenoidectomy - Present Medications Home Medications: Ambulatory Orders Medication Instructions Recorded Confirmed Gabapentin 800 mg PO TID 08/25/16 10/01/18 SUMAtriptan succinate [Sumatriptan 1 tab PO DAILY PRN 08/25/16 10/01/18 Succinate] hydrOXYzine PAMOATE [Vistaril] 50 mg PO TID PRN 08/25/16 10/01/18 [place] [[place] Carbonate] 600 mg PO TID 08/30/17 10/01/18 OLANZapine [Zyprexa] 10 mg PO DAILY PM 11/18/17 10/01/18 raNITIdine [Zantac] 150 mg PO BID #60 tablet 11/18/17 10/01/18 Azithromycin [Zithromax] 250 mg PO DAILY #6 tablet 09/29/18 10/01/18 Lorazepam [Ativan] 1 mg PO Q6HR PRN #14 tablet 09/29/18 10/01/18 Hydrocodone/Acetaminophen 1 - 2 each PO Q6H PRN #10 tablet 03/06/19 [Hydrocodon-Acetaminophen 5-325] Omeprazole 20 mg PO DAILY #30 capsule. 03/06/19 Ondansetron Odt [Zofran] 4 mg TL Q6H PRN #10 tablet 03/06/19 Bacitracin Zinc Oint 1 applic TOP BID #1 gm 04/22/21 Oxycodone HCl/Acetaminophen 1 - 2 each PO Q6H PRN #14 tablet 04/22/21 [Percocet 5-325 mg Tablet] - Allergies Allergies/Adverse Reactions: Allergies Allergy/AdvReac Type Severity Reaction Status Date / Time Penicillins AdvReac Unknown Rash Verified 05/15/21 16:36 Sulfa (Sulfonamide AdvReac Unknown Rash Verified 05/15/21 16:36 Antibiotics) steroids Allergy Hallucinati Uncoded 05/15/21 16:36 ons - Social History Does the pt smoke?: Yes Smoking Status: Current every day smoker Does the pt drink ETOH?: No Does the pt have substance abuse?: No - Immunizations Immunizations are current?: Yes - POLST Patient has POLST: No PD ED PE NORMAL - Vitals Vital signs reviewed: Yes - General General: Alert and oriented X 3, No acute distress, Well developed/nourished - HEENT HEENT: PERRL, EOMI, Ears normal, Moist mucous membranes, Pharynx benign - Neck Neck: Supple, no meningeal sign, No bony TTP - Cardiac Cardiac: RRR, Strong equal pulses - Respiratory Respiratory: No respiratory distress, Clear bilaterally - Abdomen Abdomen: Soft, Non tender, Non distended - Derm Derm: Warm and dry - Extremities Extremities: No edema - Neuro Neuro: Alert and oriented X 3, utilization specialist 2-12 intact, No motor deficit, No sensory deficit, Normal speech Eye Opening: Spontaneous Motor: Obeys Commands Verbal: Oriented GCS Score: 15 - Psych Psych: Normal mood, Normal affect Results - Vitals Vitals: Vital Signs - 24 hr 05/15/21 05/15/21 05/15/21 16:33 18:36 20:08 Temperature 36.5 C Heart Rate 123 H 86 99 Respiratory 16 17 17 Rate Blood Pressure 124/90 H 119/71 111/61 O2 Saturation 97 94 95 Oxygen O2 Source Room air PD MEDICAL DECISION MAKING - ED course Complexity details: reviewed results, re-evaluated patient, considered differential, d/w patient ED course: Patient is a 36-year-old female with chronic migraine headaches. She was given Toradol, Phenergan, Benadryl, Ativan and droperidol. Minimal relief. Given 1 dose of Dilaudid IM and headache resolved. Patient states that she feels better and she would like to go home at this time. No evidence of subarachnoid hemorrhage, tumor, mass, infection. Patient counseled regarding signs and symptoms for which I believe and urgent re-evaluation would be necessary. Patient with good understanding of and agreement to plan and is comfortable going home at this time This document was made in part using voice recognition software. While efforts are made to proofread this document, sound alike and grammatical errors may occur. Departure - Departure Disposition: 01 Home, Self Care Clinical Impression: Migraine headache Qualifiers: Migraine type: unspecified Status migrainosus presence: without status migrainosus Intractability: not intractable Qualified Code(s): G43.909 - Migraine, unspecified, not intractable, without status migrainosus Condition: Good Instructions: ED Headache Migraine Follow-Up: your,doctor in 1 week [Other] Comments: Please follow up with your doctor for further care. Return if you worsen. Discharge Date/Time: 05/15/21 20:00
[2021-05-15] MEDS ORDERED: LORazepam 2 MG/ML VIAL IM STA (18:32)
[2021-05-15] MEDS ORDERED: DROPERIDOL 5 MG/2 ML VIAL IM STA (18:32)
[2021-05-15] MEDS ORDERED: HYDROmorphone 1 MG/ML CARPUJECT IM STA (19:29)
[2021-05-15 20:10] VITALS: BP 111/61
== END 2021-05-15 20:00 | disposition home or self-care (01) ==
LOC: ED 16:20
DX: G43.909 Migraine, unspecified, not intractable, without status migrainosus (principal); I10 Essential (primary) hypertension; F17.200 Nicotine dependence, unspecified, uncomplicated
CPT/HCPCS: 96372; 99284; 99285; J1170; J1200; J2060

== ENCOUNTER 2021-06-09 15:48 | Emergency (ER) | payer MEDICAID ==
[2021-06-09 16:20] LABS: BASOPHILS # (AUTO) 0.1 10^3/uL (0.0-0.1); BASOPHILS % (AUTO) 0.6 %; EOSINOPHILS # (AUTO) 0.4 10^3/uL (0.0-0.7); EOSINOPHILS % (AUTO) 4.1 %; HGB - HEMOGLOBIN 13.4 g/dL (12.0-16.0); LYMPHOCYTES % (AUTO) 31.2 %; MEAN CORPUSCULAR HEMOGLOBIN 29.2 pg (27.0-31.0); MEAN CORPUSCULAR HGB CONC 33.5 g/dL (32.0-36.0); MEAN CORPUSCULAR VOLUME 87.1 fL (81.0-99.0); MEAN PLATELET VOLUME 10.5 fL (7.9-10.8); MONOCYTES # (AUTO) 0.3 10^3/uL (0.0-1.0); MONOCYTES % (AUTO) 3.2 %; NEUTROPHILS # (AUTO) 5.7 10^3/uL (1.5-6.6); NEUTROPHILS % (AUTO) 60.7 %; PLT - PLATELET COUNT 267 10^3/uL (130-450); RED BLOOD COUNT 4.59 10^6/uL (4.20-5.40); RED CELL DISTRIBUTION WIDTH 12.8 % (12.0-15.0); WHITE BLOOD COUNT 9.5 x10^3/uL (4.8-10.8)
--- NOTE | 2021-06-09 16:25 | ED Physician Documentation ---
PD HPI ABD PAIN - Stated complaint Stated Complaint: BACK PX - Chief complaint Chief Complaint: Abd Pain - History obtained from History obtained from: Patient - Additional information Additional information: 36yo female with hx LBP in PT and takes gabapentin. 3 weeks back pain, worsening. Mid low back to both sides. 8/10, pulsing pain. No improvement with PT or ibuprofen.No fevers/chills. Does have increased urinary frequency and dysuria x 3 days. Review of Systems Constitutional: denies: Fever, Chills Cardiac: denies: Chest pain / pressure, Palpitations Respiratory: denies: Dyspnea, Cough GI: denies: Abdominal Pain, Nausea, Vomiting : reports: Dysuria, Frequency PD PAST MEDICAL HISTORY - Past Medical History Cardiovascular: Hypertension Respiratory: None Neuro: Headaches Endocrine/Autoimmune: None GI: Chronic constipation PHYSIOGNOMIST: None : None HEENT: None Psych: Depression, Anxiety, Bipolar disorder, Schizophrenia, Other Musculoskeletal: Chronic back pain Derm: None - Past Surgical History Past Surgical History: Yes /PHYSIOGNOMIST: Tubal ligation HEENT: Tonsil/Adenoidectomy - Present Medications Home Medications: Ambulatory Orders Medication Instructions Recorded Confirmed Gabapentin 800 mg PO TID 08/25/16 10/01/18 SUMAtriptan succinate [Sumatriptan 1 tab PO DAILY PRN 08/25/16 10/01/18 Succinate] hydrOXYzine PAMOATE [Vistaril] 50 mg PO TID PRN 08/25/16 10/01/18 Free Soil [Free Soil Carbonate] 600 mg PO TID 08/30/17 10/01/18 OLANZapine [Zyprexa] 10 mg PO DAILY PM 11/18/17 10/01/18 raNITIdine [Zantac] 150 mg PO BID #60 tablet 11/18/17 10/01/18 Azithromycin [Zithromax] 250 mg PO DAILY #6 tablet 09/29/18 10/01/18 Lorazepam [Ativan] 1 mg PO Q6HR PRN #14 tablet 09/29/18 10/01/18 Hydrocodone/Acetaminophen 1 - 2 each PO Q6H PRN #10 tablet 03/06/19 [Hydrocodon-Acetaminophen 5-325] Omeprazole 20 mg PO DAILY #30 capsule. 03/06/19 Ondansetron Odt [Zofran] 4 mg TL Q6H PRN #10 tablet 03/06/19 Bacitracin Zinc Oint 1 applic TOP BID #1 gm 04/22/21 Oxycodone HCl/Acetaminophen 1 - 2 each PO Q6H PRN #14 tablet 04/22/21 [Percocet 5-325 mg Tablet] Oxycodone HCl/Acetaminophen 1 - 2 each PO Q6H PRN #14 tablet 06/09/21 [Percocet 5-325 mg Tablet] - Allergies Allergies/Adverse Reactions: Allergies Allergy/AdvReac Type Severity Reaction Status Date / Time Penicillins AdvReac Unknown Rash Verified 06/09/21 15:54 Sulfa (Sulfonamide AdvReac Unknown Rash Verified 06/09/21 15:54 Antibiotics) steroids Allergy Hallucinati Uncoded 06/09/21 15:54 ons - Social History Does the pt smoke?: Yes Smoking Status: Current every day smoker Does the pt drink ETOH?: No Does the pt have substance abuse?: No - Immunizations Immunizations are current?: Yes - POLST Patient has POLST: No PD ED PE NORMAL - Vitals Vital signs reviewed: Yes - General General: Alert and oriented X 3, No acute distress - Abdomen Abdomen: Normal bowel sounds, Soft, Non tender - Back Back: No CVA TTP, No spinal TTP - Derm Derm: Normal color, Warm and dry - Neuro Neuro: Alert and oriented X 3, Normal speech Results - Vitals Vitals: Vital Signs - 24 hr 06/09/21 06/09/21 15:52 19:08 Temperature 36 C L Heart Rate 117 H 95 Respiratory 16 18 Rate Blood Pressure 147/96 H 111/69 O2 Saturation 100 96 Oxygen O2 Source Room air - Labs Labs: Laboratory Tests 06/09/21 06/09/21 06/09/21 16:05 16:05 16:07 WBC 9.5 RBC 4.59 Hgb 13.4 Hct 40.0 MCV 87.1 MCH 29.2 MCHC 33.5 RDW 12.8 Plt Count 267 MPV 10.5 Neut # (Auto) 5.7 Lymph # (Auto) 3.0 [place] # (Auto) 0.3 Eos # (Auto) 0.4 Baso # (Auto) 0.1 Absolute Nucleated RBC 0.00 Nucleated RBC % 0.0 Sodium Potassium Chloride Carbon Dioxide Anion Gap BUN Creatinine Estimated GFR (MDRD) Glucose Calcium Total Bilirubin AST ALT Alkaline Phosphatase Total Protein Albumin Globulin Albumin/Globulin Ratio Lipase Urine Color YELLOW Urine Clarity CLEAR Urine pH 7.0 Ur Specific [place] 1.020 Urine Protein NEGATIVE Urine Glucose (UA) NEGATIVE Urine Ketones NEGATIVE Urine Occult Blood NEGATIVE Urine Nitrite NEGATIVE Urine Bilirubin NEGATIVE Urine Urobilinogen 0.2 (NORMAL) Ur Leukocyte Esterase NEGATIVE Ur Microscopic Review NOT INDICATED Urine Culture Comments NOT INDICATED Urine HCG, Qual NEGATIVE 06/09/21 16:07 WBC RBC Hgb Hct MCV MCH MCHC RDW Plt Count MPV Neut # (Auto) Lymph # (Auto) [place] # (Auto) Eos # (Auto) Baso # (Auto) Absolute Nucleated RBC Nucleated RBC % Sodium 137 Potassium 3.4 L Chloride 100 L Carbon Dioxide 24 Anion Gap 13.0 BUN 7 Creatinine 0.7 Estimated GFR (MDRD) 94 Glucose 141 H Calcium 9.0 Total Bilirubin 0.6 AST 26 ALT 32 Alkaline Phosphatase 66 Total Protein 7.8 Albumin 4.9 Globulin 2.9 Albumin/Globulin Ratio 1.7 Lipase 34 Urine Color Urine Clarity Urine pH Ur Specific [place] Urine Protein Urine Glucose (UA) Urine Ketones Urine Occult Blood Urine Nitrite Urine Bilirubin Urine Urobilinogen Ur Leukocyte Esterase Ur Microscopic Review Urine Culture Comments Urine HCG, Qual PD MEDICAL DECISION MAKING - ED course ED course: 36-year-old woman with history of conservatively managed renal colic x1 presents with back pain, she is quite uncomfortable and has minimal relief with a milligram of Dilaudid followed by IV Toradol and Ativan. Given pain out of proportion and unnclear dx, CT ordered and care to Dr Collado at shift change. Departure - Departure Disposition: 01 Home, Self Care Clinical Impression: Neuroforaminal stenosis of lumbar spine, Back pain Condition: Good Instructions: ED Neck Back Pain General Follow-Up: Isma Redman [Primary Care Provider] - Within 1 week Prescriptions: Oxycodone HCl/Acetaminophen [Percocet 5-325 mg Tablet] 1 - 2 each PO Q6H PRN #14 tablet PRN Reason: pain Comments: Please follow-up with your doctor for further care. Please return if you worsen. Your CT scan results are listed below. Your prescriptions was sent to [facility] in [place] IMPRESSION: 1. No acute CT findings in the abdomen and pelvis 2. Multilevel degenerative disc disease and arthropathy lower lumbar spine resul ts in severe bilateral foraminal stenosis I am prescribing a short course of narcotic pain medication for you. These are potentially dangerous and addictive medications that should be used carefully. These medications may constipate you. Take an [id number] stool softener (docusate) twice daily with plenty of water while taking these medications. If you go 24 hours without a bowel movement, take [id number] miralax, per package instructions. Do not drink or drive while taking these medications. If you received narcotic or sedating medications while in the emergency d epartment, do not drive for 24 hours. Store this medication in a safe, secure place and out of reach of children. It is a violation of federal law to give or sell this medication to another person or to use in a manner other than prescribed. The ED will not refill narcotic prescriptions, including prescriptions lost or stolen. To dispose of unwanted medications: 1. [facility] at [address] [facility] in [place] has a medication drop box. They accept prescription medications (in pill form) Saturday through Saturday 9:00 a.m. to 5:00 p.m. 2. The [facility] accepts prescription medications (in pill form only) for disposal year round. Call for more information. 3. Contact the [facility] for the next [facility] sponsored prescription drug collection event. , [phone], or [phone]; Discharge Date/Time: 06/09/21 20:04
[2021-06-09] MEDS ORDERED: HYDROmorphone 1 MG/ML CARPUJECT IVP STA ×3 (16:26→19:32)
[2021-06-09 16:32] LABS: ALBUMIN 4.9 g/dL (3.2-5.5); ALBUMIN/GLOBULIN RATIO 1.7 (1.0-2.2); BILIRUBIN,TOTAL 0.6 mg/dL (0.2-1.0); CREATININE 0.7 mg/dL (0.4-1.0); POTASSIUM 3.4 mmol/L (3.5-5.0); TOTAL PROTEIN 7.8 g/dL (6.7-8.2)
[2021-06-09 16:41] LABS: BILIRUBIN,URINE NEGATIVE (NEGATIVE); GLUCOSE, URINE (UA) NEGATIVE (NEGATIVE); KETONES,URINE (UA) NEGATIVE (NEGATIVE); LEUKOCYTE ESTERASE, URINE NEGATIVE (NEGATIVE); NITRITE,URINE NEGATIVE (NEGATIVE); OCCULT BLOOD,URINE NEGATIVE (NEGATIVE); PROTEIN,URINE NEGATIVE (NEGATIVE); UROBILINOGEN,URINE 0.2 (NORMAL) E.U./dL (NORMAL)
[2021-06-09 16:45] LABS: CLARITY,URINE CLEAR (CLEAR)
[2021-06-09 16:58] LABS: HCG UR QUAL NEGATIVE
[2021-06-09] MEDS ORDERED: LORazepam 2 MG/ML VIAL IVP STA (17:04)
[2021-06-09] MEDS ORDERED: KETOROLAC 15 MG/ML VIAL IVP STA (17:04)
[2021-06-09] MEDS ORDERED: IOVERSOL 320 100 ML VIAL IVP ONE ×2 (18:22→20:21)
[2021-06-09 19:08] VITALS: BP 111/69
--- NOTE | 2021-06-09 19:10 | CT Report ---
PROCEDURE: CT abdomen and pelvis with contrast INDICATIONS: Worsening pain CONTRAST: IV CONTRAST: Optiray 320 ml: 100 PO CONTRAST: *NO PO CONTRAST TECHNIQUE: After the administration of contrast, 5 mm thick sections acquired from the diaphragms to the sym physis. 5 mm thick coronal and sagittal reformats were acquired. For radiation dose reduction, the following was used: automated exposure control, adjustment of mA and/or kV according to patient size . COMPARISON: None. FINDINGS: Image quality: Excellent. ABDOMEN: Lung bases: Lung bases are clear. Heart size is normal. Solid organs: Liver and spleen are normal in size and enhancement. Gallbladder unremarkable. Bilia ry system is non dilated. Pancreas enhances normally. No adrenal nodules. Kidneys demonstrate norm al size and enhancement, without hydronephrosis. 2 mm nonobstructing left renal calculus present. Peritoneum and bowel: Bowel loops demonstrate normal wall thickness and caliber. No free fluid or a ir. Normal appendix identified Nodes and vessels: No retroperitoneal or mesenteric adenopathy by size criteria. Aorta and inferior vena cava are normal in size. Miscellaneous: Small umbilical hernia contains fat without bowel involvement PELVIS: Genitourinary: Bladder wall thickness is normal. Miscellaneous: No inguinal hernias or adenopathy. Bones: No suspicious bony lesions. No vertebral body compression fractures. Multilevel degenerativ e disc disease and arthropathy noted in the lower lumbar spine resulting in severe foraminal stenosis degenerative endplate changes. IMPRESSION: 1. No acute CT findings in the abdomen and pelvis 2. Multilevel degenerative disc disease and arthropathy lower lumbar spine results in severe bilatera l foraminal stenosis Reviewed by: Savage Lindsey MD on 06/09/2021 6:09 PM [facility] Approved by: Savage Lindsey MD on 06/09/2021 6:09 PM [facility] Station ID: [id number]
--- NOTE | 2021-06-09 19:34 | ED Physician Documentation ---
ED Addendum - Addendum Addendum: 06/09/21 19:37 36-year-old female presents to the emergency department with back pain. Signed out to me awaiting a CT scan from Dr. Kc. CT shows no acute findings in the abdomen or pelvis. She does have multilevel degenerative disc disease and arthropathy in the lower spine. Has severe bilateral foraminal stenosis. This could be causing her symptoms. We will place her on a small amount of pain medication for home and recommend that she follow-up with her doctor for further care. Patient is well-appearing, nontoxic. Afebrile. No neurological deficits. No loss of bowel or bladder control. No saddle anesthesia. I am prescribing a short course of short-acting opioid pain medication for this patient. I have reviewed the patients TAKER DOWN and no concerning findings were noted. I have discussed that the opioids are for short term therapy only, and will not be refilled from the ED. patient counseled regarding signs and symptoms for which I believe and urgent re-evaluation would be necessary. Patient with good understanding of and agreement to plan and is comfortable going home at this time This document was made in part using voice recognition software. While efforts are made to proofread this document, sound alike and grammatical errors may occur. Departure - Departure Disposition: 01 Home, Self Care Clinical Impression: Neuroforaminal stenosis of lumbar spine Back pain Qualifiers: Back pain location: low back pain Chronicity: acute Back pain laterality: bilateral Sciatica presence: without sciatica Qualified Code(s): M54.50 - Low back pain, unspecified Condition: Good Instructions: ED Neck Back Pain General Follow-Up: Isma Redman [Primary Care Provider] - Within 1 week Prescriptions: Oxycodone HCl/Acetaminophen [Percocet 5-325 mg Tablet] 1 - 2 each PO Q6H PRN #14 tablet PRN Reason: pain Comments: Please follow-up with your doctor for further care. Please return if you worsen. Your CT scan results are listed below. Your prescriptions was sent to [facility] in [place] IMPRESSION: 1. No acute CT findings in the abdomen and pelvis 2. Multilevel degenerative disc disease and arthropathy lower lumbar spine results in severe bilateral foraminal stenosis I am prescribing a short course of narcotic pain medication for you. These are potentially dangerous and addictive medications that should be used carefully. These medications may constipate you. Take an ohvl-dnh-qjkujzr stool softener (docusate) twice daily with plenty of water while taking these medications. If you go 24 hours without a bowel movement, take numv-oex-dkbpihh miralax, per package instructions. Do not drink or drive while taking these medications. If you received narcotic or sedating medications while in the emergency department, do not drive for 24 hours. Store this medication in a safe, secure place and out of reach of children. It is a violation of federal law to give or sell this medication to another person or to use in a manner other than prescribed. The ED will not refill narcotic prescriptions, including prescriptions lost or stolen. To dispose of unwanted medications: 1. [facility] at [address] in [place] has a medication drop box. They accept prescription medications (in pill form) Saturday through Saturday 9:00 a.m. to 5:00 p.m. 2. [facility] [employer] accepts prescription medications (in pill form only) for disposal year round. Call for more information. 3. Contact the [facility] for the next [facility] sponsored prescription drug collection event. , [phone], or [phone];
== END 2021-06-09 20:04 | disposition home or self-care (01) ==
LOC: ED 15:48
DX: M48.061 Spinal stenosis, lumbar region without neurogenic claudication (principal); M51.36 Other intervertebral disc degeneration, lumbar region; I10 Essential (primary) hypertension; F17.200 Nicotine dependence, unspecified, uncomplicated
CPT/HCPCS: 36415; 74177; 80053; 81003; 81025; 83690; 85025; 96374; 96375; 96376; 99284; J1170; J2060; Q9967; 81001; 87086

== ENCOUNTER 2021-09-20 09:48 | Emergency (ER) | payer MEDICAID ==
--- OUTSIDE RECORDS SUMMARY | 2021-09-20 09:59 | EXTERNAL MEDICAL SUMMARY RPT | Continuity of Care Document ---
:1985 Author Organization [facility] Address [address] [place] [address] Phone Care Team Providers Name Role Phone Thorpe Unavailable Unavailable Thorpe Unavailable Unavailable Allergies No information. Encounters No information. Medications date description facility [id number] Omeprazole 40 MG Enteric Coated Capsule [facility] [id number] rizatriptan 10 MG Disintegrating Tablet [facility] Problems date description facility [id number] Strain of muscle, fascia and tendon of lower back, [facility] initial e [id number] Radiculopathy, cervical region [facility] [id number] Chest pain, [facility] Procedures date description facility [id number] [facility] [id number] [facility] [id number] Diagnosis [facility] [id number] [facility] [id number] [facility] [id number] [facility] [id number] [facility] Results No information. Vital Signs date measurement value source [id number] weight_standard 109.4 lb [id number] weight_metric 49.62 kg 20210628 temperature_standard 98.7 F [id number] temperature_metric 37.06 C 20210628 height_standard 65 in [id number] height_metric 165.1 cm [id number] heart_rate 98 /min [id number] BP_systolic 136 mm[Hg] 20210628 BP_diastolic 80 mm[Hg] 20210628 BMI 40.1 kg/m2 [id number] weight_standard 111.3 lb [id number] weight_metric 50.48 kg [id number] temperature_standard 98.2 F [id number] temperature_metric 36.78 C 20210725 height_standard 65 in [id number] height_metric 165.1 cm [id number] heart_rate 100 /min [id number] BP_systolic 144 mm[Hg] 20210725 BP_diastolic 82 mm[Hg] 20210725 BMI 40.8 kg/m2
--- NOTE | 2021-09-20 10:20 | XRAY Report ---
PROCEDURE: Chest 1 View X-Ray INDICATIONS: Chest pain TECHNIQUE: One view of the chest was acquired. COMPARISON: 07/06/2017 FINDINGS: Surgical changes and devices: None. Lungs and pleura: No pleural effusions or pneumothorax. Lungs are clear. Mediastinum: Mediastinal contours appear normal. Heart size is normal. Bones and chest wall: No suspicious bony lesions. Overlying soft tissues appear unremarkable. IMPRESSION: No acute cardiopulmonary process demonstrated radiographically. Reviewed by: Chaim Bolden MD on 09/20/2021 10:19 AM PDT Approved by: Chaim Bolden MD on 09/20/2021 10:19 AM PDT Station ID: [id number]
[2021-09-20 10:34] LABS: BASOPHILS % (AUTO) 0.4 %; EOSINOPHILS # (AUTO) 0.1 10^3/uL (0.0-0.7); EOSINOPHILS % (AUTO) 1.3 %; HCT - HEMATOCRIT 39.7 % (37.0-47.0); HGB - HEMOGLOBIN 13.4 g/dL (12.0-16.0); LYMPHOCYTES # (AUTO) 2.3 10^3/uL (1.5-3.5); LYMPHOCYTES % (AUTO) 29.9 %; MEAN CORPUSCULAR HEMOGLOBIN 29.8 pg (27.0-31.0); MEAN CORPUSCULAR HGB CONC 33.8 g/dL (32.0-36.0); MEAN CORPUSCULAR VOLUME 88.2 fL (81.0-99.0); MONOCYTES # (AUTO) 0.4 10^3/uL (0.0-1.0); MONOCYTES % (AUTO) 5.4 %; NEUTROPHILS # (AUTO) 4.9 10^3/uL (1.5-6.6); NEUTROPHILS % (AUTO) 62.7 %; PLT - PLATELET COUNT 250 10^3/uL (130-450); RED CELL DISTRIBUTION WIDTH 13.4 % (12.0-15.0); WHITE BLOOD COUNT 7.8 x10^3/uL (4.8-10.8)
[2021-09-20 10:44] LABS: ALBUMIN 4.7 g/dL (3.2-5.5); ALBUMIN/GLOBULIN RATIO 1.6 (1.0-2.2); BILIRUBIN,TOTAL 0.5 mg/dL (0.2-1.0); CALCIUM 9.4 mg/dL (8.5-10.3); CREATININE 0.6 mg/dL (0.4-1.0); TOTAL PROTEIN 7.7 g/dL (6.7-8.2)
--- NOTE | 2021-09-20 10:59 | ED Physician Documentation ---
History of Present Illness - Stated complaint Stated Complaint: CHEST PRESSURE - Chief complaint Chief Complaint: Cardiac - History obtained from History obtained from: Patient - Additonal information Additional information: The patient comes to the emergency department chief complaint of sudden onset chest fullness and pain that started several hours ago. She states she does not feel a sense of palpitations or shortness of breath, but just feels as though she swallowed a bolus of food and it got stuck in the middle of her chest. She states that at the time it started, she was drinking some water, and the water did not come back up. This did seem to trigger the event, however. Patient states that she woke up feeling okay, though she has not had much of an appetite for the last several days. No nausea or vomiting. The patient has no history of DVT or PE. She has not had any unilateral pain or swelling in her lower extremities. She states she chronically has sore calves when she walks but this is not unusual. No other complaints at this time. No cardiac history. No recent signs of respiratory infection Review of Systems Ten Systems: 10 systems reviewed and negative Constitutional: reports: Reviewed and negative Eyes: reports: Reviewed and negative Ears: reports: Reviewed and negative Nose: reports: Reviewed and negative Throat: reports: Reviewed and negative Cardiac: reports: Chest pain / pressure Respiratory: reports: Reviewed and negative GI: reports: Reviewed and negative : reports: Reviewed and negative Skin: reports: Reviewed and negative Musculoskeletal: reports: Reviewed and negative Neurologic: reports: Reviewed and negative Psychiatric: reports: Reviewed and negative Endocrine: reports: Reviewed and negative Immunocompromised: reports: Reviewed and negative PD PAST MEDICAL HISTORY - Past Medical History Past Medical History: Yes Cardiovascular: Hypertension Respiratory: Sleep apnea, CPAP use Neuro: Headaches, Migraines Endocrine/Autoimmune: None GI: GERD, Chronic constipation [employer]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 : None HEENT: None Psych: Depression, Anxiety, Bipolar disorder, Schizophrenia, Other Musculoskeletal: Chronic back pain Derm: None - Past Surgical History Past Surgical History: Yes /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 HEENT: Tonsil/Adenoidectomy - Present Medications Home Medications: Ambulatory Orders Medication Instructions Recorded Confirmed Gabapentin 800 mg PO TID 08/25/16 09/20/21 SUMAtriptan succinate [Sumatriptan 1 tab PO DAILY PRN 08/25/16 10/01/18 Succinate] hydrOXYzine PAMOATE [Vistaril] 50 mg PO TID PRN 08/25/16 10/01/18 Megargel [Megargel Carbonate] 600 mg PO TID 08/30/17 10/01/18 OLANZapine [Zyprexa] 10 mg PO DAILY PM 11/18/17 10/01/18 raNITIdine [Zantac] 150 mg PO BID #60 tablet 11/18/17 10/01/18 Lorazepam [Ativan] 1 mg PO Q6HR PRN #14 tablet 09/29/18 10/01/18 Hydrocodone/Acetaminophen 1 - 2 each PO Q6H PRN #10 tablet 03/06/19 09/20/21 [Hydrocodon-Acetaminophen 5-325] Omeprazole 20 mg PO DAILY #30 capsule. 03/06/19 09/20/21 DULoxetine [Cymbalta] 40 mg ORAL DAILY 09/20/21 09/20/21 Escitalopram [Lexapro] 10 mg PO DAILY 09/20/21 09/20/21 Eszopiclone [Lunesta] 2 mg PO HS 09/20/21 09/20/21 - Allergies Allergies/Adverse Reactions: Allergies Allergy/AdvReac Type Severity Reaction Status Date / Time Penicillins AdvReac Unknown Rash Verified 09/20/21 10:01 Sulfa (Sulfonamide AdvReac Unknown Rash Verified 09/20/21 10:01 Antibiotics) steroids Allergy Hallucinati Uncoded 06/09/21 15:54 ons - Social History Does the pt smoke?: No Smoking Status: Former smoker Does the pt drink ETOH?: No Does the pt have substance abuse?: Yes Substance Use and Type: Marijuana - Immunizations Immunizations are current?: Yes - POLST Patient has POLST: No PD ED PE NORMAL - Vitals Vital signs reviewed: Yes - General General: Alert and oriented X 3, Well developed/nourished, Other (Patient appears moderately uncomfortable, intermittently crying out.) - HEENT HEENT: Atraumatic, PERRL, EOMI, Moist mucous membranes - Neck Neck: Supple, no meningeal sign - Cardiac Cardiac: No murmur, Strong equal pulses, Other (Tachycardic rate, regular rhythm) - Respiratory Respiratory: No respiratory distress, Clear bilaterally - Abdomen Abdomen: Soft, Non tender, Non distended - Derm Derm: Normal color, Warm and dry, No rash - Extremities Extremities: No deformity, No edema, No calf tenderness / cord - Neuro Neuro: Alert and oriented X 3, 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00 Nucleated RBC % 0.0 D-Dimer Sodium 137 Potassium 4.0 Chloride 102 Carbon Dioxide 25 Anion Gap 10.0 BUN 9 Creatinine 0.6 Estimated GFR (MDRD) 112 Glucose 106 H Calcium 9.4 Total Bilirubin 0.5 AST 24 ALT 29 Alkaline Phosphatase 54 Troponin I High Sens < 2.3 L Total Protein 7.7 Albumin 4.7 Globulin 3.0 Albumin/Globulin Ratio 1.6 Lipase 30 Nasal Adenovirus (PCR) Nasal B. parapertussis DNA (PCR) Nasal Coronavir 229E PCR Nasal Coronavir HKU1 PCR Nasal Coronavir NL63 PCR Nasal Coronavir OC43 PCR Nasal Enterovir/Rhinovir PCR Nasal Influenza B PCR Nasal Influenza A PCR Nasal Parainfluen 1 PCR Nasal Parainfluen 2 PCR Nasal Parainfluen 3 PCR Nasal Parainfluen 4 PCR Nasal RSV (PCR) Nasal B.pertussis DNA PCR Nasal C.pneumoniae (PCR) Ernesto Human Metapneumo PCR Nasal M.pneumoniae (PCR) Nasal SARS-CoV-2 (PCR) 09/20/21 09/20/21 11:04 11:45 WBC RBC Hgb Hct MCV MCH MCHC RDW Plt Count MPV Neut # (Auto) Lymph # (Auto) [place] # (Auto) Eos # (Auto) Baso # (Auto) Absolute Nucleated RBC Nucleated RBC % D-Dimer 236.7 Sodium Potassium Chloride Carbon Dioxide Anion Gap BUN Creatinine Estimated GFR (MDRD) Glucose Calcium Total Bilirubin AST ALT Alkaline Phosphatase Troponin I High Sens Total Protein Albumin Globulin Albumin/Globulin Ratio Lipase Nasal Adenovirus (PCR) NOT DETECTED Nasal B. parapertussis DNA (PCR) NOT DETECTED Nasal Coronavir 229E PCR NOT DETECTED Nasal Coronavir HKU1 PCR NOT DETECTED Nasal Coronavir NL63 PCR NOT DETECTED Nasal Coronavir OC43 PCR NOT DETECTED Nasal Enterovir/Rhinovir PCR NOT DETECTED Nasal Influenza B PCR NOT DETECTED Nasal Influenza A PCR NOT DETECTED Nasal Parainfluen 1 PCR NOT DETECTED Nasal Parainfluen 2 PCR NOT DETECTED Nasal Parainfluen 3 PCR NOT DETECTED Nasal Parainfluen 4 PCR NOT DETECTED Nasal RSV (PCR) NOT DETECTED Nasal B.pertussis DNA PCR NOT DETECTED Nasal C.pneumoniae (PCR) NOT DETECTED Ernesto Human Metapneumo PCR NOT DETECTED Nasal M.pneumoniae (PCR) NOT DETECTED Nasal SARS-CoV-2 (PCR) NOT DETECTED - Rads (name of study) chest XR Radiology: Final report received, EMP read indepedently, See rad report CTA chest Radiology: Final report received, EMP read indepedently, See rad report (Negative) PD MEDICAL DECISION MAKING - ED course Complexity details: reviewed results, re-evaluated patient, considered differential, d/w patient ED course: The patient was worked up with EKG, chest x-ray, and labs, including D-dimer. EKG showed sinus tachycardia. She was treated symptomatically with IV fluids and Dilaudid. The patient's D-dimer was normal, but despite IV fluids and analgesia, she remained tachycardic in the 1 teens. Chest x-ray was unremarkable and remainder of labs look good. Given the sudden onset of symptoms, the chest discomfort on the ongoing tachycardia, with concern for PE, even though the patient's D-dimer is negative. I did order a CT angiogram of the chest. This was negative. On reevaluation, the patient was finally feeling better and was no longer tachycardic. I felt she was stable for discharge. I suspect esophageal spasm, given the type substernal pressure and feeling like something was "stuck in her chest, and the relation to swallowing. We have discussed home management of the symptoms, follow-up, and the usual indications for return. Departure - Departure Disposition: 01 Home, Self Care Clinical Impression: Esophageal spasm Chest pain Qualifiers: Chest pain type: unspecified Qualified Code(s): R07.9 - Chest pain, unspecified Condition: Stable Instructions: ED Chest Pain Atypical Unkn Cause Comments: You have been worked up extensively for your chest pain and no emergent cause has been found. Your cardiac enzymes look good. We checked for blood clot with both a blood test and a CT scan and there is no blood clot. Initially, you were quite persistently in pain and having an elevated heart rate, but this has improved quite a bit. Since this came on with swallowing, it is very possible that you have an esophageal spasm. Please follow-up with your primary care physician to see if you need to have an endoscopy done to get a better look at the area. There is no evidence of heart attack, blood clot, pneumonia, or any other emergent condition at this time. Please return if your symptoms worsen. Discharge Date/Time: 09/20/21 13:39
[2021-09-20] MEDS: SODIUM CHLORIDE 0.9% 1,000 ML IV STA (11:19)
[2021-09-20] MEDS: HYDROmorphone 1 MG/ML CARPUJECT IVP STA (11:19)
[2021-09-20 12:32] VITALS: BP 114/79
[2021-09-20] MEDS ORDERED: IOPAMIDOL-300 50 ML VIAL ONE (12:37)
[2021-09-20 12:39] LABS: B. PARAPERTUSSIS- RESP PCR PAN NOT DETECTED; B. PERTUSSIS- RESP PCR PANEL NOT DETECTED; C. PNEUMONIAE- RESP PCR PANEL NOT DETECTED; CORONAVIRUS 229E-RESP PCR NOT DETECTED; CORONAVIRUS HKU1-RESP PCR NOT DETECTED; CORONAVIRUS NL63-RESP PCR NOT DETECTED; CORONAVIRUS OC43-RESP PCR NOT DETECTED; HUMAN METAPNEUMOVIRUS NOT DETECTED; INFLUENZA A- RESP PCR PANEL NOT DETECTED; INFLUENZA B - RESP PCR PANEL NOT DETECTED; M. PNEUMONIAE- RESP PCR PANEL NOT DETECTED; PARAINFLUENZA VIRUS 1 NOT DETECTED; PARAINFLUENZA VIRUS 2 NOT DETECTED; PARAINFLUENZA VIRUS 3 NOT DETECTED; PARAINFLUENZA VIRUS 4 NOT DETECTED; RHINOVIRUS/ENTEROVIRUS NOT DETECTED; RSV- RESP PCR PANEL NOT DETECTED; SARS-CoV-2 -RESP PCR PANEL NOT DETECTED
--- NOTE | 2021-09-20 13:09 | CT Report ---
PROCEDURE: ANGIO CHEST W/WO INDICATIONS: sudden onset CP, persistent tachycardia since CONTRAST: IV CONTRAST: Isovue 300 ml: 80 PO CONTRAST: *NO PO CONTRAST TECHNIQUE: After the administration of intravenous contrast, 2 mm axial images were acquired from the pulmonary apices to the posterior costophrenic angles during the arterial phase. In addition, 1 mm lung kernel and 5 mm soft tissue kernel reconstructions were performed. 3-dimensional coronal oblique maximum int ensity projection (MIP) reformats, 8 mm axial MIP, and 5 mm coronal and sagittal MPR reformats were t hen performed through the thorax. For radiation dose reduction, the following was used: automated exp osure control, adjustment of mA and/or kV according to patient size. COMPARISON: Chest radiograph on the same day and chest radiograph dated 07/06/2017 FINDINGS: Image quality: Excellent. Pulmonary arteries: Pulmonary arteries are normal in size, and demonstrate no intraluminal filling d efects to suggest central pulmonary embolism. Lungs and pleura: Subtle patchy glass opacities are seen scattered in posterior lateral periphery of bilateral lower lobes and lateral aspect of left lingular segment. No pleural effusions or pneumothor ax. Central and peripheral airways are patent. Mediastinum: Heart size is normal, without pericardial effusion. No mediastinal or hilar adenopathy . Thoracic aorta is normal in caliber and enhancement. Esophagus is normal in caliber, without hiat al hernia. Bones and chest wall: No suspicious bony lesions. Ribs and thoracic spine appear intact throughout. No axillary or supraclavicular adenopathy. The thyroid is normal in size and there are no incident al findings. Abdomen: Visualized upper abdominal solid organs appear normal in the early arterial phase of enhanc ement. IMPRESSION: 1. No evidence of pulmonary emboli. No thoracic aortic aneurysm or gross dissection. 2. Patchy groundglass opacities at bilateral lower lung [place] suggestive of scattered patchy atelect asis versus mild pneumonitis. No pleural effusion or pneumothorax. 3. No mediastinal or hilar lymphadenopathy. CLINICAL RECOMMENDATION STATEMENTS: In patients <35 years with an ITN detected on CT, MRI, or extrathyroidal ultrasound, the Committee re commends further evaluation with dedicated thyroid ultrasound if the nodule is "e1 cm and has no susp icious imaging features, and if the patient has normal life expectancy. In patients "e35 years with an ITN detected on CT, MRI, or extrathyroidal ultrasound, the Committee r ecommends further evaluation with dedicated thyroid ultrasound if the nodule is "e1.5 cm and has no s uspicious imaging features, and if the patient has normal life expectancy. (ACR, 2014) Reviewed by: Blas Aguirre MD on 09/20/2021 1:08 PM PDT Approved by: Blas Aguirre MD on 09/20/2021 1:08 PM PDT Station ID: [id number]
[2021-09-20] MEDS: IOPAMIDOL-300 50 ML VIAL IVP ONE (15:51)
== END 2021-09-20 13:39 | disposition home or self-care (01) ==
LOC: EDUNIT# → ED 09:48
DX: R07.89 Other chest pain (principal); I10 Essential (primary) hypertension; Z87.891 Personal history of nicotine dependence
CPT/HCPCS: 36415; 71045; 71275; 80053; 83690; 84484; 85025; 85379; 87633; 93005; 96361; 96374; 99284; J1170; Q9967

== ENCOUNTER 2021-10-17 21:09 | Outpatient (CLI) | payer MEDICAID | END 2021-10-17 21:10 | disposition left against medical advice (07) | LOC: EMS 21:09 | DX: R10.84 Generalized abdominal pain (principal) ==

== ENCOUNTER 2021-11-10 16:53 | Emergency (ER) | payer MEDICAID ==
[2021-11-10 17:02] VITALS: BP 152/117
--- NOTE | 2021-11-10 17:26 | XRAY Report ---
PROCEDURE: Forearm LT INDICATIONS: Trauma TECHNIQUE: 2 views of the forearm were acquired. COMPARISON: None FINDINGS: Bones: There is a smooth ossification on the lateral view projecting in the radiocapitellar joint sp marco a, the donor site is uncertain. No joint effusion to indicate adjacent fracture. Bone alignment is normal. No suspicious bony lesions. Soft tissues: No suspicious soft tissue calcifications or masses. IMPRESSION: 1. Small ossification of uncertain origin seen on the lateral view only. No convincing fracture site identified. This is also clinically inconsistent with the reported site of pain in the mid shaft of t he ulna. This may be dystrophic or degenerative calcification. Reviewed by: Pat Hughes MD on 11/10/2021 5:24 PM PDT Approved by: Pat Hughes MD on 11/10/2021 5:24 PM PDT Station ID: [id number]
--- NOTE | 2021-11-10 17:49 | ED Physician Documentation ---
PD HPI UPPER EXT INJURY - Stated complaint Stated Complaint: LEFT ARM INJ/GLF - Chief complaint Chief Complaint: Trauma Ext - History obtained from History obtained from: Patient - Additonal information Additional information: Yesterday around 5 PM she [place] the beach [place] and she had a trip and fall landing on a left mid ulna on the ground. Persistent significant pain there. She also scraped her knee but that does not hurt. No other injuries. Review of Systems Constitutional: reports: Reviewed and negative Eyes: reports: Reviewed and negative PD PAST MEDICAL HISTORY - Past Medical History Cardiovascular: Hypertension Respiratory: Sleep apnea, CPAP use Neuro: Headaches, Migraines Endocrine/Autoimmune: None GI: GERD, Chronic constipation CONCRETE BLOCK LAYER: None : None HEENT: None Psych: Depression, Anxiety, Bipolar disorder, Schizophrenia, Other Musculoskeletal: Chronic back pain Derm: None - Past Surgical History Past Surgical History: Yes /CONCRETE BLOCK LAYER: Tubal ligation HEENT: Tonsil/Adenoidectomy - Present Medications Home Medications: Ambulatory Orders Medication Instructions Recorded Confirmed Gabapentin 800 mg PO TID 08/25/16 09/20/21 SUMAtriptan succinate [Sumatriptan 1 tab PO DAILY PRN 08/25/16 10/01/18 Succinate] hydrOXYzine PAMOATE [Vistaril] 50 mg PO TID PRN 08/25/16 10/01/18 [place] [[place] Carbonate] 600 mg PO TID 08/30/17 10/01/18 OLANZapine [Zyprexa] 10 mg PO DAILY PM 11/18/17 10/01/18 raNITIdine [Zantac] 150 mg PO BID #60 tablet 11/18/17 10/01/18 Lorazepam [Ativan] 1 mg PO Q6HR PRN #14 tablet 09/29/18 10/01/18 Hydrocodone/Acetaminophen 1 - 2 each PO Q6H PRN #10 tablet 03/06/19 09/20/21 [Hydrocodon-Acetaminophen 5-325] Omeprazole 20 mg PO DAILY #30 capsule. 03/06/19 09/20/21 DULoxetine [Cymbalta] 40 mg ORAL DAILY 09/20/21 09/20/21 Escitalopram [Lexapro] 10 mg PO DAILY 09/20/21 09/20/21 Eszopiclone [Lunesta] 2 mg PO HS 09/20/21 09/20/21 Hydrocodone/Acetaminophen 1 each PO Q4H PRN #5 tablet 11/10/21 [Hydrocodone-Acetamin 10-325 mg] - Allergies Allergies/Adverse Reactions: Allergies Allergy/AdvReac Type Severity Reaction Status Date / Time Penicillins AdvReac Unknown Rash Verified 11/10/21 17:02 Sulfa (Sulfonamide AdvReac Unknown Rash Verified 11/10/21 17:02 Antibiotics) steroids Allergy Hallucinati Uncoded 11/10/21 17:02 ons - Social History Does the pt smoke?: No Smoking Status: Former smoker Does the pt drink ETOH?: No Does the pt have substance abuse?: Yes - Immunizations Immunizations are current?: Yes - POLST Patient has POLST: No PD ED PE NORMAL - Vitals Vital signs reviewed: Yes - General General: Alert and oriented X 3, No acute distress - Extremities Extremities: Other (Tender to the mid to proximal left ulnar area without significant tender at the wrist or elbow on the left.) - Neuro Neuro: Alert and oriented X 3, Normal speech Results - Vitals Vitals: Vital Signs - 24 hr 11/10/21 17:00 Temperature 36.9 C Heart Rate 100 Respiratory 20 Rate Blood Pressure 152/117 H O2 Saturation 98 Oxygen O2 Source Room air - Rads (name of study) 2 view x-ray of the left forearm demonstrates older appearing calcific abnormality in the joint on the left which does not appear acute. Radiology: EMP read contemporaneously Departure - Departure Disposition: 01 Home, Self Care Clinical Impression: Contusion of left arm Qualifiers: Encounter type: initial encounter Qualified Code(s): S40.022A - Contusion of left upper arm, initial encounter Condition: Good Record reviewed to determine appropriate education?: Yes Instructions: ED Contusion Upper Ext Prescriptions: Hydrocodone/Acetaminophen [Hydrocodone-Acetamin 10-325 mg] 1 each PO Q4H PRN #5 tablet PRN Reason: Pain Comments: I [facility] in [place]. Return for new or worsening symptoms. Follow-up with your doctor in a week for reexamination if not better. I am prescribing a short course of narcotic pain medication for you. These are potentially dangerous and addictive medications that should be used carefully. These medications may constipate you. Take an ayqf-nse-osdsxju stool softener (docusate) twice daily with plenty of water while taking these medications. If you go 24 hours without a bowel movement, take [id number] miralax, per package instructions. Do not drink or drive while taking these medications. If you received narcotic or sedating medications while in the emergency department, do not drive for 24 hours. Store this medication in a safe, secure place and out of reach of children. It is a violation of federal law to give or sell this medication to another person or to use in a manner other than prescribed. The ED will not refill narcotic prescriptions, including prescriptions lost or stolen. To dispose of unwanted medications: 1. [facility] at [address] in [place] has a medication drop box. They accept prescription medications (in pill form) Saturday through Saturday 9:00 a.m. to 5:00 p.m. 2. The [facility] accepts prescription medications (in pill form only) for disposal year round. Call for more inf ormation. 3. Contact the [facility] for the next [facility] sponsored prescription drug collection event. , [phone], or [phone]; Note that many narcotic pain relievers also contain Tylenol/acetaminophen. Please ensure that your total dose of acetaminophen from all sources does not exceed 3 g (3000 mg) per day. Discharge Date/Time: 11/10/21 18:05
== END 2021-11-10 18:05 | disposition home or self-care (01) ==
LOC: ED 16:53
DX: S40.022A Contusion of left upper arm, initial encounter (principal); W01.0XXA Fall on same level from slipping, tripping and stumbling without subsequent striking against object, initial encounter; Y93.89 Activity, other specified; Y92.832 Beach as the place of occurrence of the external cause; I10 Essential (primary) hypertension; Z87.891 Personal history of nicotine dependence
CPT/HCPCS: 99283

== ENCOUNTER 2022-07-13 22:32 | Emergency (ER) | payer MEDICAID ==
[2022-07-13 23:06] LABS: BILIRUBIN,URINE NEGATIVE (NEGATIVE); GLUCOSE, URINE (UA) NEGATIVE (NEGATIVE); KETONES,URINE (UA) NEGATIVE (NEGATIVE); LEUKOCYTE ESTERASE, URINE NEGATIVE (NEGATIVE); NITRITE,URINE NEGATIVE (NEGATIVE); OCCULT BLOOD,URINE NEGATIVE (NEGATIVE); PH,URINE 5.5 PH (5.0-7.5); PROTEIN,URINE TRACE mg/dL (NEGATIVE); UROBILINOGEN,URINE 0.2 (NORMAL) E.U./dL (NORMAL)
[2022-07-13 23:13] LABS: CLARITY,URINE CLEAR (CLEAR); HCG UR QUAL NEGATIVE
--- NOTE | 2022-07-14 00:39 | ED Physician Documentation ---
PD HPI FEMALE - Stated complaint Stated Complaint: FEMALE - Chief complaint Chief Complaint: Abd Pain - History obtained from History obtained from: Patient, Family - History of Present Illness Timing - onset: How many weeks ago (2) Timing - duration: Weeks (2) Timing - details: Gradual onset, Still present, Waxing and waning Associated symptoms: Genital sore/lesion, Other (blood on TP) Contributing factors: Other (hx of herpes) Similar symptoms before: Diagnosis (herpes) Recently seen: Clinic - Additional information Additional information: Chana Rosario is a 37-year-old female with a history of herpes genitalis who has developed some irritation to the urethra and a line of blood on the tissue with each urination. She is not having urgency or frequency she is not having fever or flank pain. She does endorse mid abdominal pain and aching in joints but no fever and no NVD. She has not been treated previously for herpes. She recalls developing a sore that resolves. Review of Systems Constitutional: denies: Fever Eyes: denies: Decreased vision Ears: denies: Ear pain Nose: denies: Congestion Throat: denies: Sore throat Cardiac: denies: Chest pain / pressure, Palpitations Respiratory: denies: Dyspnea, Cough GI: reports: Abdominal Pain. denies: Nausea, Vomiting, Constipation, Diarrhea : reports: Other (blood on tissue with wiping). denies: Dysuria, Frequency, Hematuria, Discharge Skin: denies: Rash Musculoskeletal: denies: Neck pain, Back pain, Extremity pain PD PAST MEDICAL HISTORY - Past Medical History Cardiovascular: Hypertension Respiratory: Sleep apnea, CPAP use Neuro: Headaches, Migraines Endocrine/Autoimmune: None GI: GERD, Chronic constipation TIMING ADJUSTER: None : None HEENT: None Psych: Depression, Anxiety, Bipolar disorder, Schizophrenia, Other Musculoskeletal: Chronic back pain Derm: None - Past Surgical History Past Surgical History: Yes /TIMING ADJUSTER: Tubal ligation HEENT: Tonsil/Adenoidectomy - Present Medications Home Medications: Ambulatory Orders Medication Instructions Recorded Confirmed Gabapentin 800 mg PO TID 08/25/16 09/20/21 SUMAtriptan succinate [Sumatriptan 1 tab PO DAILY PRN 08/25/16 10/01/18 Succinate] hydrOXYzine PAMOATE [Vistaril] 50 mg PO TID PRN 08/25/16 10/01/18 [place] [[place] Carbonate] 600 mg PO TID 08/30/17 10/01/18 OLANZapine [Zyprexa] 10 mg PO DAILY PM 11/18/17 10/01/18 raNITIdine [Zantac] 150 mg PO BID #60 tablet 11/18/17 10/01/18 Lorazepam [Ativan] 1 mg PO Q6HR PRN #14 tablet 09/29/18 10/01/18 Hydrocodone/Acetaminophen 1 - 2 each PO Q6H PRN #10 tablet 03/06/19 09/20/21 [Hydrocodon-Acetaminophen 5-325] Omeprazole 20 mg PO DAILY #30 capsule. 03/06/19 09/20/21 DULoxetine [Cymbalta] 40 mg ORAL DAILY 09/20/21 09/20/21 Escitalopram [Lexapro] 10 mg PO DAILY 09/20/21 09/20/21 Eszopiclone [Lunesta] 2 mg PO HS 09/20/21 09/20/21 Hydrocodone/Acetaminophen 1 each PO Q4H PRN #5 tablet 11/10/21 [Hydrocodone-Acetamin 10-325 mg] Valacyclovir HCl [Valtrex] 1,000 mg PO TID #15 tablet 07/14/22 - Allergies Allergies/Adverse Reactions: Allergies Allergy/AdvReac Type Severity Reaction Status Date / Time Penicillins AdvReac Unknown Rash Verified 07/13/22 22:48 Sulfa (Sulfonamide AdvReac Unknown Rash Verified 07/13/22 22:48 Antibiotics) steroids Allergy Hallucinati Uncoded 07/13/22 22:48 ons - Social History Does the pt smoke?: No Smoking Status: Former smoker Does the pt drink ETOH?: No Does the pt have substance abuse?: Yes - Immunizations Immunizations are current?: Yes - POLST Patient has POLST: No PD ED PE NORMAL - Vitals Vital signs reviewed: Yes (tachy and hypertensive ) - General General: Alert and oriented X 3, No acute distress, Well developed/nourished - HEENT HEENT: Atraumatic, PERRL, EOMI - Respiratory Respiratory: No respiratory distress - Abdomen Abdomen: Normal bowel sounds, Soft, Non distended, No organomegaly, Other (mid abdominal pain to palpation without garding or rebound. ) - Female Female : Derrick Operator present (Jany), Other (ruggae to the left para-urethral area without bleeding or escar. minimal inflammation. ) - Back Back: No CVA TTP, No spinal TTP - Derm Derm: Normal color, Warm and dry, No rash - Extremities Extremities: No deformity, No edema - Neuro Neuro: Alert and oriented X 3, adobe flex developer 2-12 intact, No motor deficit, No sensory deficit, Normal speech Eye Opening: Spontaneous Motor: Obeys Commands Verbal: Oriented GCS Score: 15 - Psych Psych: Normal mood, Normal affect Results - Vitals Vitals: Vital Signs - 24 hr 07/13/22 22:45 Temperature 36.1 C L Heart Rate 106 H Respiratory 18 Rate Blood Pressure 170/116 H O2 Saturation 100 Oxygen O2 Source Room air - Labs Labs: Laboratory Tests 07/13/22 23:00 Urine Color YELLOW Urine Clarity CLEAR Urine pH 5.5 Ur Specific [place] >=1.030 H Urine Protein TRACE Urine Glucose (UA) NEGATIVE Urine Ketones NEGATIVE Urine Occult Blood NEGATIVE Urine Nitrite NEGATIVE Urine Bilirubin NEGATIVE Urine Urobilinogen 0.2 (NORMAL) Ur Leukocyte Esterase NEGATIVE Ur Microscopic Review NOT INDICATED Urine Culture Comments NOT INDICATED Urine HCG, Qual NEGATIVE PD Medical Decision Making - ED course Complexity details: considered differential, d/w patient, d/w family Reviewed Lab Results: We evaluated a urine specimen in the laboratory to determine if this patient had urinary tract infection. She had concentrated urine without evidence of bacteria or white blood cells. Her urine appeared clean. ED course: 37-year-old female with a history of herpes genitalis has developed some blood on the tissue with wiping and she has had some type of symptom for about 2 weeks. On examination she does not have obvious acute outbreak. She does have some rugate consistent with recent outbreak or resolving outbreak. She has not had treatment previously and today her symptoms have persisted for 2 weeks. We have elected today to treat with valacyclovir and we will E scribed this to the [facility] market. I have asked the patient to follow-up with TIMING ADJUSTER if this does not resolve within the week. Departure - Departure Disposition: 01 Home, Self Care Clinical Impression: Herpes genitalis Qualifiers: Herpes simplex infection site: other site of urogenital tract Qualified Code(s): A60.09 - Herpesviral infection of other urogenital tract Condition: Stable Instructions: ED Herpes Simplex Virus Type 2 Follow-Up: [facility] [Provider Group] Prescriptions: Valacyclovir HCl [Valtrex] 1,000 mg PO TID #15 tablet Comments: Chana, today it looks like this is likely an infection with herpes and it has not self resolved over the past 2 weeks. We are providing treatment today with Audrey acyclovir and this has been E scribed to the [employer] market in [place]. My recommendation is to follow-up with the TIMING ADJUSTER service if your symptoms are not resolved within the week.
[2022-07-14 00:54] VITALS: BP 123/79
[2022-07-14] MEDS ORDERED: valACYclovir 500 MG TABLET PO STA (01:22)
== END 2022-07-14 01:30 | disposition home or self-care (01) ==
LOC: ED 22:32
DX: A60.09 Herpesviral infection of other urogenital tract (principal); Z87.891 Personal history of nicotine dependence
CPT/HCPCS: 81003; 81025; 99283; A9270; 81001; 87086

== ENCOUNTER 2023-03-11 13:01 | Outpatient (CLI) | payer MEDICAID | END 2023-03-11 23:59 | disposition home or self-care (01) | LOC: EMS 13:01 | DX: R06.02 Shortness of breath (principal); R07.9 Chest pain, unspecified ==

== ENCOUNTER 2024-01-13 22:08 | Outpatient (CLI) | payer MEDICAID | END 2024-01-13 22:09 | disposition critical access hospital (66) | LOC: EMS 22:08 | DX: R07.89 Other chest pain (principal); R00.0 Tachycardia, unspecified | CPT/HCPCS: A0425; A0427; A0999 ==

== ENCOUNTER 2024-01-13 22:28 | Emergency (ER) | payer MEDICAID ==
[2024-01-13 23:02] LABS: BASOPHILS # (AUTO) 0.1 10^3/uL (0.0-0.1); BASOPHILS % (AUTO) 0.6 %; EOSINOPHILS # (AUTO) 0.4 10^3/uL (0.0-0.7); EOSINOPHILS % (AUTO) 5.2 %; HCT - HEMATOCRIT 37.2 % (37.0-47.0); LYMPHOCYTES # (AUTO) 3.3 10^3/uL (1.5-3.5); MEAN CORPUSCULAR HEMOGLOBIN 28.6 pg (27.0-31.0); MEAN CORPUSCULAR HGB CONC 32.3 g/dL (32.0-36.0); MEAN CORPUSCULAR VOLUME 88.8 fL (81.0-99.0); MEAN PLATELET VOLUME 10.6 fL (7.9-10.8); MONOCYTES # (AUTO) 0.4 10^3/uL (0.0-1.0); MONOCYTES % (AUTO) 5.2 %; NEUTROPHILS # (AUTO) 4.2 10^3/uL (1.5-6.6); NEUTROPHILS % (AUTO) 49.6 %; PLT - PLATELET COUNT 255 10^3/uL (130-450); RED BLOOD COUNT 4.19 10^6/uL (4.20-5.40); RED CELL DISTRIBUTION WIDTH 13.3 % (12.0-15.0); WHITE BLOOD COUNT 8.4 x10^3/uL (4.8-10.8)
[2024-01-13 23:14] LABS: ALBUMIN/GLOBULIN RATIO 1.5 (1.0-2.2); ALKALINE PHOSPHATASE 62 IU/L (42-121); ALT ALANINE AMINOTRANSFERASE 36 IU/L (10-60); AST ASPARTATE AMINOTRANSFERASE 25 IU/L (10-42); BILIRUBIN,TOTAL 0.4 mg/dL (0.2-1.0); BUN - BLOOD UREA NITROGEN 12 mg/dL (6-20); CALCIUM 9.6 mg/dL (8.5-10.3); CARBON DIOXIDE - CO2 28 mmol/L (21-32); CHLORIDE 102 mmol/L (101-111); CREATININE 0.7 mg/dL (0.6-1.3); GFR - MDRD 93 (>89); GLUCOSE 148 mg/dL (74-104); LIPASE 20 U/L (11-82); SODIUM 139 mmol/L (135-145); TOTAL PROTEIN 6.6 g/dL (6.4-8.9)
--- NOTE | 2024-01-13 23:20 | ED Physician Documentation ---
PD HPI CHEST PAIN - Stated complaint Stated Complaint: CP - Chief complaint Chief Complaint: Abd Pain - History obtained from History obtained from: Patient - Additional information Additional information: HPI from patient. Patient complains of anterior, midline chest pain and pressure, episodic over the past week. She denies history of this chest discomfort before it started 1 week ago. There was no inciting event, there are no ameliorating factors. The pain is pleuritic. Denies leg swelling. Denies shortness of breath. Notes moist cough (on ROS). She also complains of generalized headache which she says is consistent with her history of migraines. This headache started approximately 3 days ago and has not responded to her Maxalt and Ubrelvy. Denies n/v. The headache is exacerbated with light, strong smells. PD PAST MEDICAL HISTORY - Past Medical History Past Medical History: Yes Cardiovascular: Hypertension, High cholesterol Respiratory: None Neuro: Migraines Endocrine/Autoimmune: None GI: GERD TALENT BUYER: None : None Psych: Depression, Anxiety Musculoskeletal: None Derm: None - Past Surgical History Past Surgical History: Yes - Allergies Allergies/Adverse Reactions: Allergies Allergy/AdvReac Type Severity Reaction Status Date / Time lithium Allergy Unknown Verified 01/13/24 22:34 Penicillins Allergy Unknown Verified 01/13/24 22:34 Sulfa (Sulfonamide Allergy Unknown Verified 01/13/24 22:34 Antibiotics) - Social History Does the pt smoke?: No Smoking Status: Never smoker Does the pt drink ETOH?: No Does the pt have substance abuse?: No - Immunizations Immunizations are current?: Yes - POLST Patient has POLST: No PD ED PE NORMAL - Vitals Vital signs reviewed: Yes - General General: Alert and oriented X 3, No acute distress, Well developed/nourished - HEENT HEENT: PERRL, EOMI - Neck Neck: Supple, no meningeal sign - Cardiac Cardiac: No murmur, No gallop, No rub - Respiratory Respiratory: No respiratory distress, Clear bilaterally - Abdomen Abdomen: Soft, Non tender - Extremities Extremities: No edema - Neuro Neuro: Alert and oriented X 3, beef pusher 2-12 intact, Normal speech Eye Opening: Spontaneous Motor: Obeys Commands Verbal: Oriented GCS Score: 15 PD ED PE EXPANDED - Cardiac Cardiac: Tachy, Regular Rhythm Results - Vitals Vitals: Vital Signs - 24 hr 0901/13/24 01/14/24 22:34 23:33 01:00 Temperature 36.5 C 36.8 C Heart Rate 100 106 H 99 Respiratory 12 16 18 Rate Blood Pressure 150/100 H 136/87 H 119/89 H O2 Saturation 94 94 99 Oxygen O2 Source Room air - EKG (time done) No standard instances EKG releavant findings:: EKG personally interpreted by author of this note. Relevant findings are: Rate: Rate (enter#) (105), Tachy Rhythm: Sinus tachycardia [place]: Normal Intervals: Normal CT QRS: Normal Ischemia: Normal ST segments - Labs Labs: Laboratory Tests 01/13/24 01/13/24 22:51 22:51 WBC 8.4 RBC 4.19 L Hgb 12.0 Hct 37.2 MCV 88.8 MCH 28.6 MCHC 32.3 RDW 13.3 Plt Count 255 MPV 10.6 Neut # (Auto) 4.2 Lymph # (Auto) 3.3 [place] # (Auto) 0.4 Eos # (Auto) 0.4 Baso # (Auto) 0.1 Absolute Nucleated RBC 0.00 Nucleated RBC % 0.0 Sodium 139 Potassium 4.0 Chloride 102 Carbon Dioxide 28 Anion Gap 9.0 BUN 12 Creatinine 0.7 Estimated GFR (MDRD) 93 Glucose 148 H Calcium 9.6 Total Bilirubin 0.4 AST 25 ALT 36 Alkaline Phosphatase 62 Troponin I High Sens < 2.3 L Total Protein 6.6 Albumin 4.0 Globulin 2.6 Albumin/Globulin Ratio 1.5 Lipase 20 - Rads (name of study) CTA chest Relevant Findings:: Prelim report reviewed, See rad report PD Medical Decision Making - ED course Complexity details: reviewed results, re-evaluated patient, considered differential, d/w patient ED course: No concerning nor diagnostic findings on EKG, blood tests (including normal hs-cTn), CTA chest. The CTA was undertaken due to mild but persistent tachycardia through most of her stay, precluding application of PERC criteria for purposes of obviating need for CTA chest (with PE included on differential diagnosis for pleuritic chest pain). There is no evidence of PE on this study. Given 1 liter NS IV bolus, 30mg IV toradol, 4mg IV morphine sulfate. On reevaluation, test results are discussed with the patient. She is in NAD and reports feeling much improved with the above interventions. Return precautions are reviewed. The cause of her chest pain is not apparent at this time. I advised her to follow-up with her primary care provider as soon as she can arrange to do so for follow-up/reevaluation. Departure - Departure Disposition: 01 Home, Self Care Clinical Impression: Migraine Qualifiers: Migraine type: unspecified Status migrainosus presence: without status migrainosus Intractability: not intractable Qualified Code(s): G43.909 - Migraine, unspecified, not intractable, without status migrainosus Chest pain Qualifiers: Chest pain type: unspecified Qualified Code(s): R07.9 - Chest pain, unspecified Condition: Good Instructions: ED Chest Pain Atypical Unkn Cause, ED Headache Migraine Follow-Up: Isma Redman [Primary Care Provider] - Comments: There were no concerning nor diagnostic findings on tonight's tests. The cause of your chest discomfort is not apparent at this time. As we discussed, you should contact your primary care provider in the morning when their office opens to arrange for the next available appointment for follow-up/reevaluation. Discharge Date/Time: 01/14/24 01:25
[2024-01-13 23:21] LABS: TROPONIN I HIGH SENSITIVITY < 2.3 ng/L (2.3-14.8)
[2024-01-14] MEDS: MORPHINE 2 MG/ML CARPUJECT IVP STA (00:18)
[2024-01-14] MEDS: KETOROLAC 30 MG/ML VIAL IVP STA (00:18)
[2024-01-14] MEDS ORDERED: iohexoL-300 100 ML VIAL ONE (00:18)
[2024-01-14] MEDS: SODIUM CHLORIDE 0.9% 1,000 ML IV STA (00:18)
[2024-01-14] MEDS: iohexoL-300 100 ML VIAL IVP ONE (00:36)
--- NOTE | 2024-01-14 00:44 | CT Report ---
PROCEDURE: Angio Chest INDICATIONS: chest pain CONTRAST: Omni 300, 80mls TECHNIQUE: After the administration of intravenous contrast, 2 mm axial images were acquired from the pulmonary apices to the posterior costophrenic angles during the arterial phase. In addition, 1 mm lung kernel and 5 mm soft tissue kernel reconstructions were performed. 3-dimensional coronal oblique maximum int ensity projection (MIP) reformats, 8 mm axial MIP, and 5 mm coronal and sagittal MPR reformats were t hen performed through the thorax. For radiation dose reduction, the following was used: automated exp osure control, adjustment of mA and/or kV according to patient size. COMPARISON: None. FINDINGS: Image quality: Excellent. Large vessels: No filling defects within the opacified pulmonary arteries (to the central and lobar l evel), accounting for motion and contrast timing. No evidence of acute aortic syndrome or aortic aneu rysm. Lungs and pleura: No consolidation. No pleural effusions. No pneumothorax. No suspicious pulmonary n odules which require follow up. Mediastinum: Heart size is normal. No pericardial effusion. No large vessel abnormality. No mediastin al adenopathy by size criteria. Chest wall and lower neck: Thyroid is unremarkable. No axillary or supraclavicular adenopathy by size . Bones: No aggressive osseous abnormality. Upper Abdomen: Moderate to severe hepatic steatosis. IMPRESSION: No central or lobar pulmonary embolus. Contrast timing does not allow for evaluation into the segment al or subsegmental pulmonary arteries. At least moderate hepatic steatosis. Correlate with LFTs, as elevated LFTs may indicate steatohepatit is. Reviewed by: Yoni Welch MD on 01/14/2024 12:43 AM PDT Approved by: Yoni Welch MD on 01/14/2024 12:43 AM PDT Station ID: [id number]
[2024-01-14 01:23] VITALS: BP 119/89; O2SAT 99
== END 2024-01-14 01:25 | disposition home or self-care (01) ==
LOC: MERGE 22:28 → ED 22:28
DX: G43.909 Migraine, unspecified, not intractable, without status migrainosus (principal); K76.0 Fatty (change of) liver, not elsewhere classified; R07.9 Chest pain, unspecified; I10 Essential (primary) hypertension; E78.00 Pure hypercholesterolemia, unspecified
CPT/HCPCS: 36415; 71275; 80053; 83690; 84484; 85025; 93005; 96374; 99284; 99285; Q9967